=== PATIENT | female | born 1955 | race African-American/Black ===

== ENCOUNTER → 2016-11-19 | Outpatient (CLI) | payer MEDICARE ==
[2016-11-19 12:31] LABS: ANION GAP 12 (5-19); BLOOD UREA NITROGEN 30 mg/dL (7-20); CALCIUM 9.7 mg/dL (8.4-10.2); CARBON DIOXIDE 30 mmol/L (22-30); CHLORIDE 105 mmol/L (98-107); GLUCOSE 78 mg/dL (75-110); POTASSIUM 4.5 mmol/L (3.6-5.0); SODIUM 146.8 mmol/L (137-145)
== END ==
LOC: OD 10:21
PROVIDERS: ATTEND Student in an Organized Health Care Education/Training Program
DX: K59.00 Constipation, unspecified (principal); R19.7 Diarrhea, unspecified; R11.0 Nausea
CPT/HCPCS: 36415; 74000; 80048

== ENCOUNTER 2017-02-10 14:51 | Emergency (ER) | payer MEDICARE ==
[2017-02-10] MEDS ORDERED: OXYCODONE-ACETAMINOPHEN 5-325 MG TABLET PO ONE (16:57)
--- NOTE | 2017-02-10 16:57 | ER Document Report ---
ED Medical Screen (RME) - General Mode of Arrival: Ambulatory Information source: Patient TRAVEL OUTSIDE OF THE [place] IN LAST 30 DAYS: No - HPI Patient complains to provider of: LLQ abdominal pain Onset: Other - 4 days ago Associated Symptoms: Other - see notes above - Related Data Smoking: Non-smoker Frequency of alcohol use: None Drug Abuse: None <DEENA SHEPARD - Last Filed: 02/10/17 18:02> <ARY POE - Last Filed: 02/10/17 21:31> - General Chief Complaint: Lower Abdominal Pain Stated Complaint: DIFFICULTY BREATHING Time Seen by Provider: 02/10/17 16:47 Notes: 61-year-old female with history of GERD presents to the ED complaining of left lower quadrant abdominal pain that has been present for the past 4 days. Patient reports that pain is worse than it has ever been in the past. Patient has taken Advil for pain, but no relief. Patient additionally reports of vomiting, fever, and mucus in stool yesterday. Patient was given MiraLAX and omeprazole last week and reports that the pain stopped but came back 4 days ago. Patient was recently on antibiotics 1-2 weeks ago secondary to a dental infection. Patient is O2 dependent and has noticed that she needs more oxygen at times. (DEENA SHEPARD) - Related Data Allergies/Adverse Reactions: Sulfa (Sulfonamide Antibiotics) Allergy (Severe, Verified 02/10/17 14:57) iodine [Iodine] Allergy (Unknown, Verified 02/10/17 14:57) Shellfish * [Shellfish] Allergy (Verified 02/10/17 14:57) Past Medical History - General Information source: Patient - Social History Chew tobacco use (# tins/day): No Frequency of alcohol use: None Drug Abuse: None Family history: Reviewed & Not Pertinent - Past Medical History Cardiac Medical History: Reports: Hx Coronary Artery Disease, Hx Heart Attack, Hx Hypertension Pulmonary Medical History: Reports: Hx COPD, Hx Pneumonia Endocrine Medical History: Reports: Hx Hypothyroidism Malignancy Medical History: Reports: Hx Breast Cancer GI Medical History: Reports: Hx Gastroesophageal Reflux Disease Musculoskeltal Medical History: Reports Hx Arthritis Psychiatric Medical History: Reports: Hx Depression Traumatic Medical History: Reports: Hx Fractures - nose Past Surgical History: Reports: Hx Appendectomy, Hx Cholecystectomy, Hx Mastectomy, Hx Tubal Ligation - Immunizations Hx Diphtheria, Pertussis, Tetanus Vaccination: No <DEENA SHEPARD - Last Filed: 02/10/17 18:02> Review of Systems - Review of Systems Constitutional: See HPI, Fever EENT: No symptoms reported Cardiovascular: No symptoms reported Respiratory: No symptoms reported Gastrointestinal: See HPI, Abdominal pain - LLQ, Vomiting, Other - mucus in stool Genitourinary: No symptoms reported Female Genitourinary: No symptoms reported Musculoskeletal: No symptoms reported Skin: No symptoms reported Hematologic/Lymphatic: No symptoms reported Neurological/Psychological: No symptoms reported -: Yes All other systems reviewed and negative <DEENA SHEPARD - Last Filed: 02/10/17 18:02> Physical Exam - General General appearance: Alert In distress: None - Respiratory Respiratory status: No respiratory distress Breath sounds: Normal - Cardiovascular Rhythm: Regular Heart sounds: Normal auscultation Murmur: No Friction rub: No Gallop: None auscultated - Abdominal Inspection: Normal Distension: No distension Bowel sounds: Normal Tenderness: Tender - LLQ and suprapubic tenderness to palpation. No rebound or rigidity., Guarding - some. No: Rebound <DEENA SHEPARD - Last Filed: 02/10/17 18:02> Course - Laboratory Result Diagrams: 02/10/17 18:17 02/10/17 18:17 <ARY POE - Last Filed: 02/10/17 21:31> - Vital Signs Vital signs: Temp Pulse Resp BP Pulse Ox 98.4 F 104 H 16 141/78 H 100 02/10/17 14:58 02/10/17 16:51 02/10/17 20:00 02/10/17 20:00 02/10/17 20:00 - Laboratory Laboratory results interpreted by me: 02/10/17 02/10/17 18:17 18:17 RBC 3.13 L Hgb 9.4 L Hct 29.2 L Plt Count 130 L Seg Neutrophils % 80.5 H Lymphocytes % 9.3 L Carbon Dioxide 31 H BUN 21 H Est GFR ( Amer) 53 L Est GFR (Non-Af Amer) 44 L Total Protein 8.5 H Doctor's Discharge <DEENA SHEPARD - Last Filed: 02/10/17 18:02> <ARY POE - Last Filed: 06/14/17 21:31> - Discharge Clinical Impression: Abdominal pain, Diarrhea Condition: Good Disposition: HOME, SELF-CARE Additional Instructions: You have been seen in the Emergency Department (ED) for abdominal pain. Your evaluation did not identify a clear cause of your symptoms but was generally reassuring. You do have an abdominal aortic aneurysm which has grown since 2010. You need to follow with a vascular surgeon for monitoring of this to ensure that it does not grow to a size require surgery. Please inform your doctor of this finding as well. Your being started on 2 antibiotics to help treat a possible infection your colon. Please take until he complete all the antibiotics. For your pain: Take ibuprofen 600 mg and acetaminophen 1000 mg every 6 hours together as needed for pain. If this does not control your pain you may take 15 mg of oral morphine every 4 hours as needed. Please be very careful about using the oral morphine and only use this for severe pain. Please follow up with your doctor as soon as possible regarding today's emergent visit and the symptoms that are bothering you. Return to the ED if your abdominal pain worsens or fails to improve, you develop bloody vomiting, bloody diarrhea, you are unable to tolerate fluids due to vomiting, fever greater than 101, or other symptoms that concern you. Prescriptions: Morphine Sulfate [Morphine Ir 15 mg Tablet] 15 mg PO Q4HP PRN #12 tablet PRN Reason: Cephalexin Monohydrate [Keflex 500 mg Capsule] 500 mg PO QID #40 capsule Metronidazole [Flagyl 500 mg Tablet] 500 mg PO Q6H #40 tablet Ondansetron [Zofran Odt 4 mg Tablet] 1 - 2 tab PO Q4H PRN #15 tab.rapdis PRN Reason: For Nausea/Vomiting Referrals: BLANCA GRIDER DO [Primary Care Provider] - Follow up tomorrow Scribe Documentation - Scribe Written by Juan David:: Juan David Silverio, 02/10/2017 1119 acting as scribe for :: Jessica <DEENA SHEPARD - Last Filed: 02/10/17 18:02>
[2017-02-10 18:35] LABS: ABSOLUTE EOSINOPHILS # (AUTO) 0.1 10^3/uL (0.0-0.6); ABSOLUTE LYMPHOCYTES (AUTO) 0.8 10^3/uL (0.5-4.7); ABSOLUTE MONOCYTES (AUTO) 0.8 10^3/uL (0.1-1.4); ABSOLUTE NEUT (AUTO) 7.3 10^3/uL (1.7-8.2); BASOPHILS % (AUTO) 0.3 % (0-2); EOSINOPHILS % (AUTO) 0.7 % (0-6); HEMATOCRIT 29.2 % (36.0-47.0); HEMOGLOBIN 9.4 g/dL (12.0-15.5); LYMPHOCYTES % (AUTO) 9.3 % (13-45); MEAN CORPUSCULAR HEMOGLOBIN 30.1 pg (27.0-33.4); MEAN CORPUSCULAR HGB CONC 32.2 g/dL (32.0-36.0); MEAN CORPUSCULAR VOLUME 93 fl (80-97); MONOCYTES % (AUTO) 9.2 % (3-13); RED BLOOD COUNT 3.13 10^6/uL (3.72-5.28); RED CELL DISTRIBUTION WIDTH 13.2 % (11.5-14.0); SEGMENTED NEUTROPHILS % (AUTO) 80.5 % (42-78); WHITE BLOOD COUNT 9.1 10^3/uL (4.0-10.5)
[2017-02-10 18:55] LABS: ALANINE AMINOTRANSFERASE 27 U/L (9-52); ALKALINE PHOSPHATASE 62 U/L (38-126); ANION GAP 10 (5-19); ASPARTATE AMINO TRANSFERASE 35 U/L (14-36); BILIRUBIN,DIRECT 0.4 mg/dL (0.0-0.4); BILIRUBIN,TOTAL 0.8 mg/dL (0.2-1.3); BLOOD UREA NITROGEN 21 mg/dL (7-20); CARBON DIOXIDE 31 mmol/L (22-30); CHLORIDE 99 mmol/L (98-107); CREATININE RESULT 1.24 mg/dL (0.52-1.25); GLUCOSE 92 mg/dL (75-110); POTASSIUM 4.1 mmol/L (3.6-5.0); SODIUM 140.3 mmol/L (137-145); TOTAL PROTEIN 8.5 g/dL (6.3-8.2)
--- NOTE | 2017-02-10 18:58 | RADIOLOGY REPORT (SQ) ---
EXAM DESCRIPTION: CHEST SINGLE VIEW COMPLETED DATE/TIME: 02/10/2017 6:47 pm REASON FOR STUDY: sob, tachypnea COMPARISON: 03/10/2016 EXAM PARAMETERS: NUMBER OF VIEWS: One view. TECHNIQUE: Single frontal radiographic view of the chest acquired. RADIATION DOSE: NA LIMITATIONS: None. FINDINGS: LUNGS AND PLEURA: The lungs are hyperexpanded. The hemidiaphragms are flattened. Mild ch ronic interstitial changes are present in the lung bases. MEDIASTINUM AND HILAR STRUCTURES: No masses. Contour normal. HEART AND VASCULAR STRUCTURES: Heart normal in size. Normal vasculature. BONES: No acute findings. HARDWARE: Surgical clips are seen in the left axilla. OTHER: No other significant finding. IMPRESSION: Chronic lung changes with no acute cardiopulmonary disease. TECHNICAL DOCUMENTATION: JOB ID: [id number]
--- NOTE | 2017-02-10 19:02 | ER Document Report ---
ED General - General Chief Complaint: Lower Abdominal Pain Stated Complaint: DIFFICULTY BREATHING Time Seen by Provider: 02/10/17 16:47 Mode of Arrival: Ambulatory Notes: Patient is a 61-year-old female who presents with 3 days of intermittent, diffuse, cramping abdominal pain with associated mucousy diarrhea. Nothing improves or worsens her pain. She denies any history of similar symptoms in the past. She has not seen her primary care doctor regarding today's concerns. She has had several episodes of nonbilious, watery vomitus. Has been able to tolerate intermittent oral intake despite these episodes of vomiting. She denies any associated fever, chest pain, shortness of breath or syncope. She has a history of a cholecystectomy and appendectomy. TRAVEL OUTSIDE OF THE [place] IN LAST 30 DAYS: No - Related Data Allergies/Adverse Reactions: Sulfa (Sulfonamide Antibiotics) Allergy (Severe, Verified 02/10/17 14:57) iodine [Iodine] Allergy (Unknown, Verified 02/10/17 14:57) Shellfish * [Shellfish] Allergy (Verified 02/10/17 14:57) Past Medical History - General Information source: Patient - Social History Smoking Status: Never Smoker Chew tobacco use (# tins/day): No Frequency of alcohol use: None Drug Abuse: None Lives with: Family Family History: Reviewed & Not Pertinent Patient has suicidal ideation: No Patient has homicidal ideation: No - Past Medical History Cardiac Medical History: Reports: Hx Coronary Artery Disease, Hx Heart Attack, Hx Hypertension Denies: Hx Atrial Fibrillation, Hx Congestive Heart Failure, Hx Hypercholesterolemia, Hx Peripheral Vascular Disease, Hx Pulmonary Embolism, Hx Heart Murmur Pulmonary Medical History: Reports: Hx COPD, Hx Pneumonia Denies: Hx Asthma, Hx Bronchitis, Hx Respiratory Failure, Hx Sleep Apnea, Hx Tuberculosis Neurological Medical History: Denies: Hx Cerebrovascular Accident, Hx Seizures Endocrine Medical History: Reports: Hx Hypothyroidism. Denies: Hx Graves' Disease, Hx Hyperthyroidism Renal/ Medical History: Denies: Hx End Stage Renal Disease, Hx Kidney Stones, Hx Peritoneal Dialysis Malignancy Medical History: Reports: Hx Breast Cancer. Denies: Hx Leukemia, Hx Lung Cancer GI Medical History: Reports: Hx Gastroesophageal Reflux Disease. Denies: Hx Crohn's Disease, Hx Hiatal Hernia, Hx Irritable Bowel, Hx Liver Failure, Hx Ulcer Musculoskeltal Medical History: Reports Hx Arthritis, Denies Hx Fibromyalgia, Denies Hx Multiple Sclerosis, Denies Hx Muscular Dystrophy Skin Medical History: Denies Hx MRSA Psychiatric Medical History: Reports: Hx Depression Denies: Hx Bipolar Disorder, Hx Dementia, Hx Post Traumatic Stress Disorder, Hx Schizophrenia Traumatic Medical History: Reports: Hx Fractures - nose Infectious Medical History: Denies: Hx HIV Past Surgical History: Reports: Hx Appendectomy, Hx Cholecystectomy, Hx Mastectomy, Hx Tubal Ligation. Denies: Hx Bowel Surgery, Hx Section, Hx Colostomy, Hx Coronary Artery Bypass Graft, Hx Gastric Bypass Surgery, Hx Herniorrhaphy, Hx Hysterectomy, Hx Pacemaker, Hx Tonsillectomy - Immunizations Hx Diphtheria, Pertussis, Tetanus Vaccination: No Hx Pneumococcal Vaccination: 08/30/11 Review of Systems - Review of Systems Notes: Constitutional: Negative for fever. HENT: Negative for sore throat. Eyes: Negative for visual changes. Cardiovascular: Negative for chest pain. Respiratory: Negative for shortness of breath. Gastrointestinal: Positive for abdominal pain, vomiting and diarrhea Genitourinary: Negative for dysuria. Musculoskeletal: Negative for back pain. Skin: Negative for rash. Neurological: Negative for headaches, weakness or numbness. 10 point ROS negative except as marked above and in HPI. Physical Exam - Vital signs Vitals: Temp Pulse Resp BP Pulse Ox 98.4 F 93 14 135/70 H 99 02/10/17 14:58 02/10/17 14:58 02/10/17 14:58 02/10/17 14:58 02/10/17 14:58 Interpretation: Normal Notes: PHYSICAL EXAMINATION: GENERAL: Cachectic, frail but in no acute distress HEAD: Atraumatic, normocephalic. EYES: Pupils equal round and reactive to light, extraocular movements intact, sclera anicteric, conjunctiva are normal. ENT: nares patent, oropharynx clear without exudates. Moderately dry mucous membranes. NECK: Normal range of motion, supple without lymphadenopathy LUNGS: Breath sounds clear to auscultation bilaterally and equal. No wheezes rales or rhonchi. HEART: Regular rate and rhythm without murmurs ABDOMEN: Mild rigidity, diffuse tenderness with focal area of tenderness in the left lower quadrant, normoactive bowel sounds. No guarding, no rebound. No masses appreciated. EXTREMITIES: Normal range of motion, no pitting or edema. No cyanosis. NEUROLOGICAL: No focal neurological deficits. Moves all extremities spontaneously and on command. PSYCH: Normal mood, normal affect. SKIN: Warm, Dry, normal turgor, no rashes or lesions noted. Course - Re-evaluation Re-evalutation: 02/10/17 18:58 Patient presents with 4 days of progressively worsening diffuse abdominal pain, most focal in the left lower quadrant with associated increased diarrhea with mucus production and several episodes of nonbilious vomiting. She has however been able to tolerate oral intake over the last 4 days but notes that it increases her pain. She is overall frail, elderly in appearance but in no acute distress. She is cachectic and only 36 kg with a BMI of 13. On examination she has focal abdominal pain in the left lower quadrant but does have some mild rigidity throughout. No rebound tenderness. Patient did also mention some shortness of breath in triage which is now resolved. She denies any chest pain, pleuritic pain, hemoptysis. Chest x-ray will be obtained. At this time primary concern is for acute diverticulitis with associated possible bowel perforation versus possible C. difficile colitis. Will proceed with a noncontrasted CT scan of the abdomen pelvis as patient has anaphylaxis to contrast material. 02/10/17 20:10 Patient continues well in appearance, vital signs within normal limits, no distress. CT abdomen pelvis incidentally shows an enlarged abdominal aortic aneurysm increased in 2010 but not a surgical level and without perforation or leak. I do not believe this is at all related to patient's presentation of pain. Informed her of this finding and the need to follow-up with vascular surgery for continuous monitoring should cross a surgical threshold. Remainder the CT is unremarkable. Will empirically treat patient at this time for possible localized colitis not seen on CT scan. She is agreeable with this and has not had any additional diarrheal bowel movements to provide a C. difficile toxin assay. I have encouraged her to follow-up with her primary care doctor tomorrow. At this time will discharge with return precautions and follow-up recommendations. Verbal discharge instructions given a the bedside and opportunity for questions given. Medication warnings reviewed. Patient is in agreement with this plan and has verbalized understanding of return precautions and the need for primary care follow-up in the next 24-72 hours. - Vital Signs Vital signs: Temp Pulse Resp BP Pulse Ox 98.4 F 104 H 16 141/78 H 100 02/10/17 14:58 02/10/17 16:51 02/10/17 20:00 02/10/17 20:00 02/10/17 20:00 - Laboratory Result Diagrams: 02/10/17 18:17 02/10/17 18:17 Laboratory results interpreted by me: 02/10/17 02/10/17 18:17 18:17 RBC 3.13 L Hgb 9.4 L Hct 29.2 L Plt Count 130 L Seg Neutrophils % 80.5 H Lymphocytes % 9.3 L Carbon Dioxide 31 H BUN 21 H Est GFR ( Amer) 53 L Est GFR (Non-Af Amer) 44 L Total Protein 8.5 H - Diagnostic Test Radiology reviewed: Reports reviewed Discharge - Discharge Clinical Impression: Abdominal pain Qualifiers: Abdominal location: lower abdomen, unspecified Qualified Code(s): R10.30 - Lower abdominal pain, unspecified Diarrhea Qualifiers: Diarrhea type: infectious Qualified Code(s): A09 - Infectious gastroenteritis and colitis, unspecified Condition: Good Disposition: HOME, SELF-CARE Additional Instructions: You have been seen in the Emergency Department (ED) for abdominal pain. Your evaluation did not identify a clear cause of your symptoms but was generally reassuring. You do have an abdominal aortic aneurysm which has grown since 2010. You need to follow with a vascular surgeon for monitoring of this to ensure that it does not grow to a size require surgery. Please inform your doctor of this finding as well. Your being started on 2 antibiotics to help treat a possible infection your colon. Please take until he complete all the antibiotics. For your pain: Take ibuprofen 600 mg and acetaminophen 1000 mg every 6 hours together as needed for pain. If this does not control your pain you may take 15 mg of oral morphine every 4 hours as needed. Please be very careful about using the oral morphine and only use this for severe pain. Please follow up with your doctor as soon as possible regarding today's emergent visit and the symptoms that are bothering you. Return to the ED if your abdominal pain worsens or fails to improve, you develop bloody vomiting, bloody diarrhea, you are unable to tolerate fluids due to vomiting, fever greater than 101, or other symptoms that concern you. Prescriptions: Morphine Sulfate [Morphine Ir 15 mg Tablet] 15 mg PO Q4HP PRN #12 tablet PRN Reason: Cephalexin Monohydrate [Keflex 500 mg Capsule] 500 mg PO QID #40 capsule Metronidazole [Flagyl 500 mg Tablet] 500 mg PO Q6H #40 tablet Ondansetron [Zofran Odt 4 mg Tablet] 1 - 2 tab PO Q4H PRN #15 tab.rapdis PRN Reason: For Nausea/Vomiting Referrals: BLANCA GRIDER DO [Primary Care Provider] - Follow up tomorrow
--- NOTE | 2017-02-10 19:43 | RADIOLOGY REPORT (SQ) ---
EXAM DESCRIPTION: CT ABD/PELVIS ORAL ONLY COMPLETED DATE/TIME: 02/10/2017 7:25 pm REASON FOR STUDY: eval diverticulitis, possible perforation COMPARISON: 12/20/2010 TECHNIQUE: CT scan of the abdomen and pelvis performed without intravenous with oral contrast. Image s reviewed with lung, soft tissue, and bone windows. Reconstructed coronal and sagittal MPR images re viewed. All images stored on PACS. All CT scanners at this facility use dose modulation, iterative reconstruction, and/or weight based d osing when appropriate to reduce radiation dose to as low as reasonably achievable (ALARA). [facility]: Dose Right [facility]: CareDose [facility]: Dose Right [facility]: Teradose 4D [facility]: Health 123 RADIATION DOSE: 4.80mGy. LIMITATIONS: None. FINDINGS: LOWER CHEST: Extensive emphysema. No free air. NON-CONTRASTED LIVER, SPLEEN, ADRENALS: Evaluation limited by lack of IV contrast. No identified sign ificant masses. PANCREAS: No masses. No peripancreatic inflammatory changes. GALLBLADDER: Surgically absent. RIGHT KIDNEY AND URETER: No suspicious masses. Assessment limited by lack of IV contrast. No signif icant calcifications. No hydronephrosis or hydroureter. LEFT KIDNEY AND URETER: No suspicious masses. Assessment limited by lack of IV contrast. No signifi cant calcifications. No hydronephrosis or hydroureter. AORTA AND RETROPERITONEUM: Large bilobed abdominal aortic aneurysm. Maximum diameter of the inferior aneurysm is 4 x 3.5 cm. Significantly increased since 2011. BOWEL AND PERITONEAL CAVITY: No obvious masses or inflammatory changes. No free fluid. APPENDIX: Surgically absent. PELVIS, BLADDER, AND ABDOMINAL WALL:No abnormal masses. No free fluid. Bladder normal. BONES: No significant findings. OTHER: No other significant finding. IMPRESSION: Large bilobed abdominal aortic aneurysm. The inferior component maximum diameter 4 cm. Significantly increased since previous. No inflammatory changes. COPD. TECHNICAL DOCUMENTATION: JOB ID: [id number] Quality ID # [id number]: Final reports with documentation of one or more dose reduction techniques (e.g., Au tomated exposure control, adjustment of the mA and/or kV according to patient size, use of iterative reconstruction technique) 2010 [employer]- All Rights Reserved
[2017-02-10] MEDS ORDERED: MORPHINE SULFATE 10 MG/ML INJ IV PRN (19:58)
[2017-02-10] MEDS ORDERED: MORPHINE SULFATE IR 15 MG TABLET PO ONE (20:09)
[2017-02-10] MEDS ORDERED: ACETAMINOPHEN 325 MG TABLET PO ONE (20:09)
[2017-02-10 20:16] VITALS: BP 141/78
== END 2017-02-10 20:33 | disposition home or self-care (01) ==
LOC: ER 14:51
DX: A09 Infectious gastroenteritis and colitis, unspecified (principal); R10.30 Lower abdominal pain, unspecified; R06.02 Shortness of breath; R19.7 Diarrhea, unspecified
CPT/HCPCS: 99284; 96374; 36415; 85025; 80053; 71010; 74176; A9270 ×2; J2270

== ENCOUNTER 2017-02-21 18:26 | Inpatient (IN) | payer MEDICARE ==
--- NOTE | 2017-02-21 18:38 | ER Document Report ---
ED Medical Screen (RME) - General Chief Complaint: Breathing Difficulty Stated Complaint: DIFFICULTY BREATHING TRAVEL OUTSIDE OF THE [place] IN LAST 30 DAYS: No - HPI Notes: 02/21/17 18:36 Patient discharged from [facility] after COPD exacerbation states she was given a lot of fluid and concerned she is short of breath now because she is retaining fluid. - Related Data Allergies/Adverse Reactions: Sulfa (Sulfonamide Antibiotics) Allergy (Severe, Verified 02/10/17 14:57) iodine [Iodine] Allergy (Unknown, Verified 02/10/17 14:57) Shellfish * [Shellfish] Allergy (Verified 02/10/17 14:57) Past Medical History - Social History Family history: Reviewed & Not Pertinent - Past Medical History Cardiac Medical History: Reports: Hx Coronary Artery Disease, Hx Heart Attack, Hx Hypertension Denies: Hx Atrial Fibrillation, Hx Congestive Heart Failure, Hx Hypercholesterolemia, Hx Peripheral Vascular Disease, Hx Pulmonary Embolism, Hx Heart Murmur Pulmonary Medical History: Reports: Hx COPD, Hx Pneumonia Denies: Hx Asthma, Hx Bronchitis, Hx Respiratory Failure, Hx Sleep Apnea, Hx Tuberculosis Neurological Medical History: Denies: Hx Cerebrovascular Accident, Hx Seizures Endocrine Medical History: Reports: Hx Hypothyroidism. Denies: Hx Graves' Disease, Hx Hyperthyroidism Renal/ Medical History: Denies: Hx End Stage Renal Disease, Hx Kidney Stones, Hx Peritoneal Dialysis Malignancy Medical History: Reports: Hx Breast Cancer. Denies: Hx Leukemia, Hx Lung Cancer GI Medical History: Reports: Hx Gastroesophageal Reflux Disease. Denies: Hx Crohn's Disease, Hx Hiatal Hernia, Hx Irritable Bowel, Hx Liver Failure, Hx Ulcer Musculoskeltal Medical History: Reports Hx Arthritis, Denies Hx Fibromyalgia, Denies Hx Multiple Sclerosis, Denies Hx Muscular Dystrophy Skin Medical History: Denies Hx MRSA Psychiatric Medical History: Reports: Hx Depression Denies: Hx Bipolar Disorder, Hx Dementia, Hx Post Traumatic Stress Disorder, Hx Schizophrenia Traumatic Medical History: Reports: Hx Fractures - nose Infectious Medical History: Denies: Hx HIV Past Surgical History: Reports: Hx Appendectomy, Hx Cholecystectomy, Hx Mastectomy, Hx Tubal Ligation. Denies: Hx Bowel Surgery, Hx Section, Hx Colostomy, Hx Coronary Artery Bypass Graft, Hx Gastric Bypass Surgery, Hx Herniorrhaphy, Hx Hysterectomy, Hx Pacemaker, Hx Tonsillectomy - Immunizations Hx Diphtheria, Pertussis, Tetanus Vaccination: No Review of Systems - Review of Systems Cardiovascular: Dyspnea Physical Exam - Vital signs Vitals: Temp Pulse Resp BP Pulse Ox 98.2 F 100 24 H 141/85 H 95 02/21/17 18:28 02/21/17 18:28 02/21/17 18:28 02/21/17 18:28 02/21/17 18:28 - Cardiovascular Rhythm: Regular Heart sounds: Normal auscultation Murmur: No - Extremities General upper extremity: Normal inspection, Nontender, Normal color, Normal ROM , Normal temperature General lower extremity: Normal inspection, Nontender, Edema - +1, Normal color , Normal ROM, Normal temperature, Normal weight bearing. No: Joao's sign - Neurological Neuro grossly intact: Yes Cognition: Normal Orientation: AAOx4 [place] Coma Scale Eye Opening: Spontaneous [place] Coma Scale Verbal: Oriented [place] Coma Scale Motor: Obeys Commands [place] Coma Scale Total: 15 Speech: Normal Motor strength normal: LUE, RUE, LLE, RLE Sensory: Normal - Psychological Associated symptoms: Normal affect, Normal mood - Skin Skin Temperature: Warm Skin Moisture: Dry Skin Color: Normal Course - Re-evaluation Re-evalutation: 02/21/17 18:38 - Vital Signs Vital signs: Temp Pulse Resp BP Pulse Ox 98.2 F 100 24 H 141/85 H 95 02/21/17 18:28 02/21/17 18:28 02/21/17 18:28 02/21/17 18:28 02/21/17 18:28
[2017-02-21] MEDS ORDERED: IPRATROPIUM/ALBUTEROL 0.5-2.5 MG/3 ML AMPUL NEB ONE ×2 (19:01→20:04)
--- NOTE | 2017-02-21 19:22 | RADIOLOGY REPORT (SQ) ---
EXAM DESCRIPTION: CHEST PA/LAT COMPLETED DATE/TIME: 02/21/2017 7:02 pm REASON FOR STUDY: sob COMPARISON: 03/10/2016 EXAM PARAMETERS: NUMBER OF VIEWS: two views TECHNIQUE: Digital Frontal and Lateral radiographic views of the chest acquired. RADIATION DOSE: NA LIMITATIONS: none FINDINGS: LUNGS AND PLEURA: No opacities, masses or pneumothorax. No pleural effusion. MEDIASTINUM AND HILAR STRUCTURES: No masses or contour abnormalities. HEART AND VASCULAR STRUCTURES: Heart normal size. No evidence for failure. BONES: No acute findings. HARDWARE: Left axillary clips. OTHER: No other significant finding. IMPRESSION: NO SIGNIFICANT RADIOGRAPHIC FINDING IN THE CHEST. TECHNICAL DOCUMENTATION: JOB ID: [id number] [employer]- All Rights Reserved
--- NOTE | 2017-02-21 19:40 | ER Document Report ---
ED General - General Chief Complaint: Breathing Difficulty Stated Complaint: DIFFICULTY BREATHING Time Seen by Provider: 02/21/17 18:39 Mode of Arrival: Ambulatory Information source: Relative Notes: 61-year-old female with a history of COPD (2 L nasal cannula), lupus, known AAA (recent evaluation at [facility]), chronic kidney disease. Patient presents to the emergency room with productive cough of grayish sputum, shortness of breath and difficulty breathing. Note: Patient was recently evaluated for AAA at [facility]. During that evaluation, vascular surgery thought she was not a candidate for AAA correction. She was admitted there because of acute renal failure was diagnosed with C. difficile colitis and started on antibiotics. She was stabilized and discharged in the family states that her renal function had returned to normal. They state that she had started to have a cough with shortness of breath towards the end of her hospitalization which progressively got worse over the last few days. TRAVEL OUTSIDE OF THE [place] IN LAST 30 DAYS: No - HPI Onset: Last week Onset/Duration: Gradual Quality of pain: No pain Severity: None Pain Level: Denies Associated symptoms: Shortness of breath. denies: Chest pain, Fever Exacerbated by: Denies Relieved by: Denies Similar symptoms previously: Yes Recently seen / treated by doctor: Yes - Related Data Allergies/Adverse Reactions: Sulfa (Sulfonamide Antibiotics) Allergy (Severe, Verified 02/21/17 20:17) iodine [Iodine] Allergy (Unknown, Verified 02/21/17 20:17) Shellfish * [Shellfish] Allergy (Verified 02/21/17 20:17) Home Medications: Current Home Medications Albuterol Sulfate [Ventolin Hfa] 2 puff IH Q6H PRN 02/21/17 [History] Amlodipine Besylate [Amlodipine Besylate] 5 mg PO DAILY 02/21/17 [History] Aspirin [Aspirin 81 mg Chewable Tablet] 81 mg PO DAILY 02/21/17 [History] Budesonide/Formoterol Fumarate [Symbicort 160-4.5 Mcg Inhaler] 2 puff IH BID [History] Cephalexin Monohydrate [Cephalexin] 500 mg PO QID 02/21/17 [History] Cholecalciferol (Vitamin D3) [Vitamin D3] 1,000 units PO DAILY 02/21/17 [History ] Epoetin Darren [Procrit Inj 40,000 Unit/1 ml Vial (Renal)] 40,000 units SQ Q2DAYS 02/21/17 [History] Guaifenesin/Dextromethorphan [Mucinex Dm ER 600-30 mg Tablet] 1 tab PO Q12H [History] Ipratropium/Albuterol Sulfate [Duoneb 3 ml Ampul] 3 ml IH Q4H PRN 02/21/17 [ History] Isosorbide Mononitrate [Imdur 30 mg Tablet.er] 30 mg PO DAILY 02/21/17 [History] Metoprolol Succinate [Toprol Xl] 50 mg PO DAILY 02/21/17 [History] Metronidazole [Metronidazole] 500 mg PO Q8H 02/21/17 [History] Omeprazole 40 mg PO DAILY 02/21/17 [History] Ondansetron HCl [Zofran 4 mg Tablet] 4 mg PO Q8H PRN 02/21/17 [History] Pravastatin Sodium [Pravastatin Sodium] 10 mg PO QHS 02/21/17 [History] Prednisone [Prednisone] 40 mg PO DAILY 02/21/17 [History] Sennosides [Senna Laxative] 1 - 2 tab PO BID PRN 02/21/17 [History] Tiotropium [place] [Spiriva Handihaler 5 Cap/Kit (18 Mcg/Cap)] 18 mcg IH DAILY 02/21/17 [History] Past Medical History - General Information source: Patient - Social History Smoking Status: Never Smoker Cigarette use (# per day): No Chew tobacco use (# tins/day): No Frequency of alcohol use: None Drug Abuse: None Lives with: Family Family History: Reviewed & Not Pertinent Patient has suicidal ideation: No Patient has homicidal ideation: No - Past Medical History Cardiac Medical History: Reports: Hx Coronary Artery Disease, Hx Heart Attack, Hx Hypertension Denies: Hx Atrial Fibrillation, Hx Congestive Heart Failure, Hx Hypercholesterolemia, Hx Peripheral Vascular Disease, Hx Pulmonary Embolism, Hx Heart Murmur Pulmonary Medical History: Reports: Hx COPD, Hx Pneumonia Denies: Hx Asthma, Hx Bronchitis, Hx Respiratory Failure, Hx Sleep Apnea, Hx Tuberculosis Neurological Medical History: Denies: Hx Cerebrovascular Accident, Hx Seizures Endocrine Medical History: Reports: Hx Hypothyroidism. Denies: Hx Graves' Disease, Hx Hyperthyroidism Renal/ Medical History: Denies: Hx End Stage Renal Disease, Hx Kidney Stones, Hx Peritoneal Dialysis Malignancy Medical History: Reports: Hx Breast Cancer. Denies: Hx Leukemia, Hx Lung Cancer GI Medical History: Reports: Hx Gastroesophageal Reflux Disease. Denies: Hx Crohn's Disease, Hx Hiatal Hernia, Hx Irritable Bowel, Hx Liver Failure, Hx Ulcer Musculoskeltal Medical History: Reports Hx Arthritis, Denies Hx Fibromyalgia, Denies Hx Multiple Sclerosis, Denies Hx Muscular Dystrophy Skin Medical History: Denies Hx MRSA Psychiatric Medical History: Reports: Hx Depression Denies: Hx Bipolar Disorder, Hx Dementia, Hx Post Traumatic Stress Disorder, Hx Schizophrenia Traumatic Medical History: Reports: Hx Fractures - nose Infectious Medical History: Denies: Hx HIV Past Surgical History: Reports: Hx Appendectomy, Hx Cholecystectomy, Hx Mastectomy, Hx Tubal Ligation. Denies: Hx Bowel Surgery, Hx Section, Hx Colostomy, Hx Coronary Artery Bypass Graft, Hx Gastric Bypass Surgery, Hx Herniorrhaphy, Hx Hysterectomy, Hx Pacemaker, Hx Tonsillectomy - Immunizations Hx Diphtheria, Pertussis, Tetanus Vaccination: No Hx Pneumococcal Vaccination: 08/30/11 Review of Systems - Review of Systems Constitutional: denies: Chills, Fever EENT: No symptoms reported Cardiovascular: See HPI Respiratory: See HPI Gastrointestinal: No symptoms reported Genitourinary: No symptoms reported Female Genitourinary: No symptoms reported Musculoskeletal: No symptoms reported Skin: No symptoms reported Hematologic/Lymphatic: No symptoms reported Neurological/Psychological: No symptoms reported Physical Exam - Vital signs Vitals: Temp Pulse Resp BP Pulse Ox 98.2 F 100 24 H 141/85 H 95 02/21/17 18:28 02/21/17 18:28 02/21/17 18:28 02/21/17 18:28 02/21/17 18:28 Notes: Physical exam: GENERAL: 61-year-old female, alert and oriented 3, looks frail and chronically ill HEAD: Atraumatic, normocephalic. EYES: Pupils equal round and reactive to light, extraocular movements intact, sclera anicteric, conjunctiva are normal. ENT: Dry mucous membranes. NECK: Normal range of motion, supple without lymphadenopathy or JVD. LUNGS: Bilateral wheezing HEART: Regular rate and rhythm without murmurs, rubs or gallops. ABDOMEN: Soft, normoactive bowel sounds. No tenderness to palpation. No guarding, no rebound. No masses appreciated. EXTREMITIES: Normal range of motion, no pitting or edema. No clubbing or cyanosis. NEUROLOGICAL: Cranial nerves II through XII grossly intact. Normal speech, normal gait. PSYCH: Normal mood, normal affect. SKIN: Warm, Dry, normal turgor, no rashes or lesions noted. Course - Vital Signs Vital signs: Temp Pulse Resp BP Pulse Ox 98.2 F 100 20 139/94 H 100 02/21/17 18:28 02/21/17 18:28 02/21/17 21:01 02/21/17 21:00 02/21/17 21:01 - Laboratory Result Diagrams: 02/21/17 19:50 02/21/17 19:50 Laboratory results interpreted by me: 02/21/17 02/21/17 19:50 19:50 RBC 3.18 L Hgb 9.4 L Hct 28.8 L Seg Neuts % (Manual) 96 H Band Neutrophils % 1 L Lymphocytes % (Manual) 1 L Monocytes % (Manual) 2 L Abs Neuts (Manual) 10.2 H Abs Lymphs (Manual) 0.1 L Carbon Dioxide 20 L BUN 73 H Creatinine 2.71 H Est GFR ( Amer) 22 L Est GFR (Non-Af Amer) 18 L Glucose 146 H Direct Bilirubin 0.5 H AST 44 H Albumin 3.1 L - Diagnostic Test Radiology reviewed: Image reviewed, Reports reviewed - This infiltrates - EKG Interpretation by Me Rate: Normal Rhythm: NSR - Sinus rhythm with a ventricular rate of 98, nonspecific ST changes. Critical Care Note - Critical Care Note Total time excluding time spent on procedures (mins): 55 Discharge - Discharge Clinical Impression: acute COPD exacerbation, acute renal failure, C diff Condition: Stable Disposition: ADMITTED INPATIENT Admitting Provider: Hospitalist - dr del rio Unit Admitted: Telemetry Referrals: BLANCA GRIDER DO [Primary Care Provider] - Follow up as needed
[2017-02-21 19:57] LABS: HEMATOCRIT 28.8 % (36.0-47.0); HEMOGLOBIN 9.4 g/dL (12.0-15.5); HGB HCT DIFFERENCE -0.6; MEAN CORPUSCULAR HEMOGLOBIN 29.5 pg (27.0-33.4); MEAN CORPUSCULAR HGB CONC 32.7 g/dL (32.0-36.0); MEAN CORPUSCULAR VOLUME 90 fl (80-97); RED BLOOD COUNT 3.18 10^6/uL (3.72-5.28); RED CELL DISTRIBUTION WIDTH 13.8 % (11.5-14.0); WHITE BLOOD COUNT 10.5 10^3/uL (4.0-10.5)
[2017-02-21] MEDS ORDERED: METHYLPREDNISOLONE INJ 125 MG/2 ML SDV IV ONE (20:04)
[2017-02-21] MEDS ORDERED: LEVOFLOXACIN 500 MG/D5W RTU 100 ML IV ONE (20:04)
[2017-02-21 20:09] LABS: ALANINE AMINOTRANSFERASE 51 U/L (9-52); ALBUMIN 3.1 g/dL (3.5-5.0); ALKALINE PHOSPHATASE 50 U/L (38-126); ANION GAP 13 (5-19); ASPARTATE AMINO TRANSFERASE 44 U/L (14-36); BILIRUBIN,DIRECT 0.5 mg/dL (0.0-0.4); BILIRUBIN,TOTAL 0.5 mg/dL (0.2-1.3); BLOOD UREA NITROGEN 73 mg/dL (7-20); CALCIUM 8.9 mg/dL (8.4-10.2); CARBON DIOXIDE 20 mmol/L (22-30); CHLORIDE 107 mmol/L (98-107); CREATININE RESULT 2.71 mg/dL (0.52-1.25); GLUCOSE 146 mg/dL (75-110); POTASSIUM 4.8 mmol/L (3.6-5.0); SODIUM 139.5 mmol/L (137-145); TOTAL PROTEIN 6.7 g/dL (6.3-8.2)
[2017-02-21 20:17] LABS: BAND NEUTROPHILS % (MANUAL) 1 % (3-5); BASOPHILS % (MANUAL) 0 % (0-2); EOSINOPHILS % (MANUAL) 0 % (0-6); LYMPHOCYTES % (MANUAL) 1 % (13-45); TOTAL CELLS COUNTED 100
[2017-02-21 20:21] LABS: TOXIC GRANULATION 1+; TOXIC VACUOLATION PRESENT
[2017-02-21 20:22] LABS: BURR CELLS SLIGHT; OVALOCYTES 1+; PLATELET CLUMPS PRESENT; POIKILOCYTOSIS 1+; TARGET CELLS SLIGHT
[2017-02-21] MEDS ORDERED: NORMAL SALINE 1000 ML 1,000 ML IV PRN (20:26)
[2017-02-21 22:30] LABS: MAGNESIUM 2.1 mg/dL (1.6-2.3)
--- NOTE | 2017-02-21 22:42 | EKG REPORT ---
SEVERITY:- ABNORMAL ECG - SINUS TACHYCARDIA MULTIPLE ATRIAL PREMATURE COMPLEXES ABERRANT COMPLEX VS VPC ABNORMAL T, CONSIDER ISCHEMIA, DIFFUSE LEADS : Confirmed by: Angel Bauer 21-Feb-2017 22:41:24
[2017-02-21] MEDS: NORMAL SALINE 1000 ML 1,000 ML IV SCH (23:00)
[2017-02-22 00:38] LABS: FOLATE > 20.00 ng/mL (>2.76)
[2017-02-22] MEDS: IPRATROPIUM/ALBUTEROL 0.5-2.5 MG/3 ML AMPUL NEB SCH ×4 (01:51→19:46)
[2017-02-22] MEDS: NORMAL SALINE 1000 ML 1,000 ML IV SCH ×2 (01:53→06:03)
[2017-02-22 05:25] LABS: HEMOGLOBIN 8.8 g/dL (12.0-15.5); HGB HCT DIFFERENCE 0.4; MEAN CORPUSCULAR HEMOGLOBIN 31.2 pg (27.0-33.4); MEAN CORPUSCULAR HGB CONC 33.9 g/dL (32.0-36.0); MEAN CORPUSCULAR VOLUME 92 fl (80-97); RED BLOOD COUNT 2.82 10^6/uL (3.72-5.28); RED CELL DISTRIBUTION WIDTH 13.9 % (11.5-14.0); WHITE BLOOD COUNT 8.7 10^3/uL (4.0-10.5)
[2017-02-22 05:35] LABS: ANION GAP 11 (5-19); BLOOD UREA NITROGEN 69 mg/dL (7-20); CALCIUM 8.4 mg/dL (8.4-10.2); CARBON DIOXIDE 20 mmol/L (22-30); CHLORIDE 111 mmol/L (98-107); CREATININE RESULT 2.39 mg/dL (0.52-1.25); GLUCOSE 130 mg/dL (75-110); POTASSIUM 4.5 mmol/L (3.6-5.0)
[2017-02-22] MEDS: HEPARIN SOD (PORCINE) 5,000 UNIT/ML 1 ML SYRINGE SUBCUT SCH ×3 (05:37→21:40)
--- NOTE | 2017-02-22 05:41 | PDOC H&P ---
History of Present Illness Admission Date/PCP: BLANCA GRIDER DO History of Present Illness: LAURYN PETTY is a 61 year old female Past Medical History Cardiac Medical History: Reports: Coronary Artery Disease, Myocardial Infarction , Hypertension Denies: Atrial Fibrillation, Congestive Heart Failure, Hyperlipidema, Peripheral Vascular Disease, Pulmonary Embolism, Heart Murmur Pulmonary Medical History: Reports: Chronic Obstructive Pulmonary Disease (COPD) , Pneumonia Denies: Asthma, Bronchitis, Respiratory Failure, Sleep Apnea, Tuberculosis Neurological Medical History: Denies: Seizures Endocrine Medical History: Reports: Hypothyroidism Denies: Hyperthyroidism Renal/ Medical History: Denies: End Stage Renal Disease Malignancy Medical History: Reports: Breast Cancer Denies: Leukemia, Lung Cancer GI Medical History: Reports: Gastroesophageal Reflux Disease Denies: Crohn's Disease, Hiatal Hernia Musculoskeltal Medical History: Reports: Arthritis Denies: Fibromyalgia Psychiatric Medical History: Reports: Depression Denies: Bipolar Disorder, Dementia, Post Traumatic Stress Disorder Hematology: Reports: Anemia Denies: Hemophilia, Sickle Cell Disease Infectious Medical History: Denies: HIV Past Surgical History Past Surgical History: Reports: Appendectomy, Cardiac Catheterization - stent x 2, Cholecystectomy, Mastectomy, Tubal Ligation Denies: Amputation, Section, Colostomy, Coronary Artery Bypass Graft , Gastric Bypass Surgery, Herniorrhaphy, Hysterectomy, Pacemaker, Tonsillectomy Social History Lives with: Family Smoking Status: Never Smoker Frequency of Alcohol Use: None Hx Recreational Drug Use: No Hx Prescription Drug Abuse: No - Advance Directive Resuscitation Status: Full Code Family History Family History: COPD, Hyperlipidemia Parental Family History Reviewed: Yes Children Family History Reviewed: Yes Sibling(s) Family History Reviewed.: Yes Medication/Allergy Home Medications: Albuterol Sulfate [Ventolin Hfa] 2 puff IH Q6H PRN 02/21/17 Amlodipine Besylate [Amlodipine Besylate] 5 mg PO DAILY 02/21/17 Aspirin [Aspirin 81 mg Chewable Tablet] 81 mg PO DAILY 02/21/17 Budesonide/Formoterol Fumarate [Symbicort 160-4.5 Mcg Inhaler] 2 puff IH BID Cephalexin Monohydrate [Cephalexin] 500 mg PO QID 02/21/17 Cholecalciferol (Vitamin D3) [Vitamin D3] 1,000 units PO DAILY 02/21/17 Epoetin Darren [Procrit Inj 40,000 Unit/1 ml Vial (Renal)] 40,000 units SQ Q2DAYS 02/21/17 Guaifenesin/Dextromethorphan [Mucinex Dm ER 600-30 mg Tablet] 1 tab PO Q12H Ipratropium/Albuterol Sulfate [Duoneb 3 ml Ampul] 3 ml IH Q4H PRN 02/21/17 Isosorbide Mononitrate [Imdur 30 mg Tablet.er] 30 mg PO DAILY 02/21/17 Metoprolol Succinate [Toprol Xl] 50 mg PO DAILY 02/21/17 Metronidazole [Metronidazole] 500 mg PO Q8H 02/21/17 Omeprazole 40 mg PO DAILY 02/21/17 Ondansetron HCl [Zofran 4 mg Tablet] 4 mg PO Q8H PRN 02/21/17 Pravastatin Sodium [Pravastatin Sodium] 10 mg PO QHS 02/21/17 Prednisone [Prednisone] 40 mg PO DAILY 02/21/17 Sennosides [Senna Laxative] 1 - 2 tab PO BID PRN 02/21/17 Tiotropium [place] [Spiriva Handihaler 5 Cap/Kit (18 Mcg/Cap)] 18 mcg IH DAILY 02/21/17 Allergies/Adverse Reactions: Sulfa (Sulfonamide Antibiotics) Allergy (Severe, Verified 02/21/17 20:17) iodine [Iodine] Allergy (Unknown, Verified 02/21/17 20:17) Shellfish * [Shellfish] Allergy (Verified 02/21/17 20:17) Review of Systems Constitutional: PRESENT: fatigue, weakness. ABSENT: anorexia, fever(s), headache(s), night sweats Eyes: ABSENT: visual disturbances Ears: ABSENT: hearing changes Cardiovascular: ABSENT: chest pain, dyspnea on exertion, edema, orthropnea, palpitations Respiratory: PRESENT: cough. ABSENT: sputum Gastrointestinal: ABSENT: abdominal pain, constipation, diarrhea, hematemesis, hematochezia, nausea, vomiting Genitourinary: ABSENT: dysuria, hematuria Musculoskeletal: PRESENT: muscle weakness Integumentary: ABSENT: rash, wounds Neurological: ABSENT: abnormal gait, abnormal speech, confusion, dizziness, focal weakness, syncope Psychiatric: ABSENT: anxiety, depression, homidical ideation, suicidal ideation Endocrine: ABSENT: cold intolerance, heat intolerance, polydipsia, polyuria Hematologic/Lymphatic: ABSENT: easy bleeding, easy bruising Physical Exam Vital Signs: Temp Pulse Resp BP Pulse Ox 98.2 F 100 20 139/94 H 100 02/21/17 18:28 02/21/17 18:28 02/21/17 21:01 02/21/17 21:00 02/21/17 21:01 Intake & Output 02/20/17 02/21/17 02/22/17 11:59 11:59 11:59 Weight 46 kg General appearance: PRESENT: no acute distress, cooperative, thin Head exam: PRESENT: atraumatic, normocephalic Eye exam: PRESENT: conjunctiva pink, EOMI, PERRLA, other - Left eye blind and opaque. ABSENT: scleral icterus Ear exam: PRESENT: normal external ear exam Mouth exam: PRESENT: dry mucosa, tongue midline Neck exam: ABSENT: carotid bruit, JVD, lymphadenopathy, thyromegaly Respiratory exam: PRESENT: crackles, decreased breath sounds, prolonged expiratory phas, symmetrical, unlabored. ABSENT: accessory muscle use, chest wall tenderness Cardiovascular exam: PRESENT: RRR. ABSENT: diastolic murmur, rubs, systolic murmur Pulses: PRESENT: normal dorsalis pedis pul Vascular exam: PRESENT: normal capillary refill GI/Abdominal exam: PRESENT: normal bowel sounds, soft. ABSENT: distended, guarding, mass, organolmegaly, rebound, tenderness Rectal exam: PRESENT: deferred Extremities exam: PRESENT: pedal edema Musculoskeletal exam: PRESENT: other - Global muscle atrophy Neurological exam: PRESENT: alert, awake, oriented to person, oriented to place , oriented to time, oriented to situation, CN II-XII grossly intact. ABSENT: motor sensory deficit Skin exam: PRESENT: dry, intact, warm. ABSENT: cyanosis, rash Results Laboratory Results: 02/21/17 19:50 02/21/17 19:50 02/21/17 02/21/17 02/21/17 19:50 19:50 19:54 WBC 10.5 RBC 3.18 L Hgb 9.4 L Hct 28.8 L MCV 90 MCH 29.5 MCHC 32.7 RDW 13.8 Plt Count 187 Seg Neutrophils % Not Reportable Lymphocytes % Not Reportable Monocytes % Not Reportable Eosinophils % Not Reportable Basophils % Not Reportable Absolute Neutrophils Not Reportable Absolute Lymphocytes Not Reportable Absolute Monocytes Not Reportable Absolute Eosinophils Not Reportable Absolute Basophils Not Reportable Retic Count (auto) 0.86 Absolute Retic 0.028 Sodium 139.5 Potassium 4.8 Chloride 107 Carbon Dioxide 20 L Anion Gap 13 BUN 73 H Creatinine 2.71 H Est GFR ( Amer) 22 L Est GFR (Non-Af Amer) 18 L Glucose 146 H Calcium 8.9 Total Bilirubin 0.5 AST 44 H ALT 51 Alkaline Phosphatase 50 Total Protein 6.7 Albumin 3.1 L Impressions: Chest X-Ray 02/21/17 18:38 IMPRESSION: NO SIGNIFICANT RADIOGRAPHIC FINDING IN THE CHEST. Assessment & Plan - Diagnosis (1) Anemia Is this a current diagnosis for this admission?: YesPlan: Unclear cause anemia workup initiated possibly secondary to chronic kidney disease. Reevaluate CBC (2) Acute renal failure Is this a current diagnosis for this admission?: YesPlan: Unclear baseline, concern for recent exposure to IV contrast and workup of AAA. UA pending, avoid nephrotoxic meds and doses IV fluid challenge reevaluate chemistry and nephrology consult (3) Bronchitis Is this a current diagnosis for this admission?: YesPlan: Albuterol and Atrovent, empiric antibiotics, flutter valve, consider steroids - Time Time Spent: 50 to 70 Minutes - Inpatient Certification Medical Necessity: Need Close Monitoring Due to Risk of Patient Decompensation
[2017-02-22 05:55] LABS: BASOPHILS % (MANUAL) 0 % (0-2); EOSINOPHILS % (MANUAL) 0 % (0-6); LYMPHOCYTES % (MANUAL) 2 % (13-45); TOTAL CELLS COUNTED 100; TOXIC GRANULATION SLIGHT; TOXIC VACUOLATION PRESENT
[2017-02-22 05:56] LABS: OVALOCYTES SLIGHT; TEAR DROP CELLS SLIGHT
--- NOTE | 2017-02-22 10:10 | PDOC CONSULTATION ---
Consultation Consult Date: 02/22/17 Consult reason:: Acute kidney injury. Underlying CKD stage 3/4 History of Present Illness Admission Date/PCP: 02/21/17 22:03 BLANCA GRIDER DO History of Present Illness: LAURYN PETTY is a 61 year old female with a history of end-stage COPD, hypertension, history of CVA of the breast, CKD stage 3/4 with a base creatinine of 1.5 was admitted with history of progressive weakness and shortness of breath.She is not very sure of her history. She is currently in bed on oxygen and looks extremely weak and almost cachectic.She says she was being worked up for initial nausea vomiting diarrhea this was followed by chest infection and history of being on antibiotics. Apparently she was hospitalized in [place] that the week before and she was discharged on Wednesday. Then she gives history of being worked up for possible abdominal aortic aneurysm. Unsure of whether she had angiogram and use of contrast [place].Currently she says her nausea vomiting is better. She denies any history of fever chills. She has left-sided back pains. No history of dysuria hematuria.Diarrhea has resolved and she has been constipated for the last 2 days. She does not know if she was positive for C. difficile and what antibiotics was given. Past Medical History Cardiac Medical History: Reports: Coronary Artery Disease, Hypertension-primary , Myocardial Infarction Denies: Atrial Fibrillation, Heart Murmur, Hyperlipidemia, Peripheral Vascular Disease, Pulmonary Embolism Pulmonary Medical History: Reports: Chronic Obstructive Pulmonary Disease (COPD) , Pneumonia Denies: Asthma, Bronchitis, Respiratory Failure, Sleep Apnea, Tuberculosis Neurological Medical History: Denies: Seizures Endocrine Medical History: Reports: Hypothyroidism Denies: Hyperthyroidism Renal/ Medical History: Reports: Chronic Kidney Disease Stage III Denies: Benign Prostatic Hyperplasia, End Stage Renal Disease Malignancy Medical History: Reports: Breast Cancer Denies: Leukemia, Lung Cancer GI Medical History: Reports: Gastroesophageal Reflux Disease Denies: Crohn's Disease, Hiatal Hernia Musculoskeltal Medical History: Reports: Arthritis, Systemic Lupus Erythematosus Denies: Fibromyalgia, Rheumatoid Arthritis Psychiatric Medical History: Reports: Depression Denies: Bipolar Disorder, Dementia, Post Traumatic Stress Disorder Infectious Medical History: Denies: HIV Hematology Medical History: Reports Anemia Past Surgical History Past Surgical History: Reports: Appendectomy, Cardiac Catheterization - stent x 2, Cholecystectomy, Mastectomy, Tubal Ligation Denies: Section, Colostomy, Coronary Artery Bypass Graft, Gastric Bypass Surgery, Herniorrhaphy, Hysterectomy, Pacemaker, Tonsillectomy Social History Lives with: Family Smoking Status: Never Smoker Frequency of Alcohol Use: None Hx Recreational Drug Use: No Hx Prescription Drug Abuse: No - Advance Directive Resuscitation Status: Full Code Family History Parental Family History Reviewed: Yes - Negative for ESRD. Children Family History Reviewed: No Sibling(s) Family History Reviewed.: No Medication/Allergy Home Medications: Albuterol Sulfate [Ventolin Hfa] 2 puff IH Q6H PRN 02/21/17 Amlodipine Besylate [Amlodipine Besylate] 5 mg PO DAILY 02/21/17 Aspirin [Aspirin 81 mg Chewable Tablet] 81 mg PO DAILY 02/21/17 Budesonide/Formoterol Fumarate [Symbicort 160-4.5 Mcg Inhaler] 2 puff IH BID Cephalexin Monohydrate [Cephalexin] 500 mg PO QID 02/21/17 Cholecalciferol (Vitamin D3) [Vitamin D3] 1,000 units PO DAILY 02/21/17 Epoetin Darren [Procrit Inj 40,000 Unit/1 ml Vial (Renal)] 40,000 units SQ Q2DAYS 02/21/17 Guaifenesin/Dextromethorphan [Mucinex Dm ER 600-30 mg Tablet] 1 tab PO Q12H Ipratropium/Albuterol Sulfate [Duoneb 3 ml Ampul] 3 ml IH Q4H PRN 02/21/17 Isosorbide Mononitrate [Imdur 30 mg Tablet.er] 30 mg PO DAILY 02/21/17 Metoprolol Succinate [Toprol Xl] 50 mg PO DAILY 02/21/17 Metronidazole [Metronidazole] 500 mg PO Q8H 02/21/17 Omeprazole 40 mg PO DAILY 02/21/17 Ondansetron HCl [Zofran 4 mg Tablet] 4 mg PO Q8H PRN 02/21/17 Pravastatin Sodium [Pravastatin Sodium] 10 mg PO QHS 02/21/17 Prednisone [Prednisone] 40 mg PO DAILY 02/21/17 Sennosides [Senna Laxative] 1 - 2 tab PO BID PRN 02/21/17 Tiotropium [place] [Spiriva Handihaler 5 Cap/Kit (18 Mcg/Cap)] 18 mcg IH DAILY 02/21/17 Allergies/Adverse Reactions: Sulfa (Sulfonamide Antibiotics) Allergy (Severe, Verified 02/21/17 20:17) iodine [Iodine] Allergy (Unknown, Verified 02/21/17 20:17) Shellfish * [Shellfish] Allergy (Verified 02/21/17 20:17) Review of Systems Constitutional: PRESENT: fatigue, weakness. ABSENT: fever(s), headache(s), night sweats Nose, Mouth, and Throat: ABSENT: mouth pain, sore throat Cardiovascular: PRESENT: dyspnea on exertion, edema. ABSENT: chest pain, orthropnea, palpitations Gastrointestinal: PRESENT: diarrhea, nausea, vomiting. ABSENT: abdominal pain, coffee ground emesis, dysphagia, heartburn, hematemesis, hematochezia, melena Genitourinary: ABSENT: dysuria, hematuria Integumentary: ABSENT: lesions, pruritus, rash Neurological: PRESENT: confusion. ABSENT: abnormal speech, focal weakness Hematologic/Lymphatic: ABSENT: easy bruising, lymphadenopathy Physical Exam Vital Signs: Temp Pulse Resp BP Pulse Ox 97.6 F 102 H 20 136/80 H 100 02/22/17 07:46 02/22/17 07:46 02/22/17 07:46 02/22/17 07:46 02/22/17 07:46 Intake & Output 02/21/17 02/22/17 02/23/17 06:59 06:59 06:59 Intake Total 1300 Balance 1300 Weight 52.3 kg General appearance: PRESENT: mild distress, thin Eye exam: PRESENT: conjunctiva pink, EOMI, PERRLA. ABSENT: nystagmus, scleral icterus Ear exam: PRESENT: normal external ear exam Mouth exam: PRESENT: moist. ABSENT: neck supple Neck exam: ABSENT: lymphadenopathy, meningismus, tenderness, thyromegaly, tracheal deviation Respiratory exam: PRESENT: clear to auscultation amaury, crackles. ABSENT: rhonchi Cardiovascular exam: PRESENT: +S1, +S2 GI/Abdominal exam: PRESENT: normal bowel sounds, soft. ABSENT: distended, firm , organomegaly, tenderness Extremities exam: PRESENT: +1 edema Neurological exam: PRESENT: awake, oriented to person, oriented to place, oriented to time, CN II-XII grossly intact. ABSENT: motor sensory deficit Psychiatric exam: PRESENT: anxious Skin exam: ABSENT: cyanosis, dry, erythema, mottled, rash Results Laboratory Results: 02/22/17 05:00 02/22/17 05:00 02/21/17 02/22/17 02/22/17 23:05 05:00 05:00 WBC 8.7 RBC 2.82 L Hgb 8.8 L Hct 26.0 L MCV 92 MCH 31.2 MCHC 33.9 RDW 13.9 Plt Count 143 L Seg Neutrophils % Not Reportable Lymphocytes % Not Reportable Monocytes % Not Reportable Eosinophils % Not Reportable Basophils % Not Reportable Absolute Neutrophils Not Reportable Absolute Lymphocytes Not Reportable Absolute Monocytes Not Reportable Absolute Eosinophils Not Reportable Absolute Basophils Not Reportable Sodium 142.0 Potassium 4.5 Chloride 111 H Carbon Dioxide 20 L Anion Gap 11 BUN 69 H Creatinine 2.39 H Est GFR ( Amer) 25 L Est GFR (Non-Af Amer) 21 L Glucose 130 H Calcium 8.4 Iron 83.6 TIBC 194 L % Saturation 43 Ferritin 628.00 H Vitamin B12 > 1000.0 H Folate > 20.00 Impressions: Chest X-Ray 02/21/17 18:38 IMPRESSION: NO SIGNIFICANT RADIOGRAPHIC FINDING IN THE CHEST. Assessment & Plan - Diagnosis (1) Constipation Plan: Stool softeners. Monitor (2) Acute renal failure Is this a current diagnosis for this admission?: YesPlan: Is got underlying CKD is most likely from lupus. Presently she is got multifactorial causes for acute kidney injuryIncluding dehydration and a possible contrast nephropathy that was done as workup of AAA.Her to get notes from [place]. Meanwhile continue on IV fluids. Get renal ultrasound.No indications for renal replacements currently. (3) Anemia Is this a current diagnosis for this admission?: YesPlan: Adequate iron stores. Do additional testing and see if she needs to be started on erythropoietin (4) Bronchitis Is this a current diagnosis for this admission?: YesPlan: On the background of end-stage COPD. On antibiotics. (5) Hypertension Qualifiers: Hypertension type: unspecified secondary hypertension Qualified Code(s) : I15.9 - Secondary hypertension, unspecified; I15 - Secondary hypertension (6) Lupus Plan: Unsure of activity levels. Await urine analysis.
[2017-02-22] MEDS: METOPROLOL SUCCINATE 50 MG TAB.SR.24H PO SCH (10:39)
[2017-02-22] MEDS: DOCUSATE SODIUM 100 MG CAPSULE PO SCH ×2 (10:39→18:11)
[2017-02-22] MEDS: AMLODIPINE BESYLATE 5 MG TABLET PO SCH (10:39)
--- NOTE | 2017-02-22 13:52 | Physician Advisory Note ---
Physician Advisor ProgressNote .: Pursuant to the plan for [facility], I have reviewed the medical record for this patient. Physician Advisor Statement: Attending, please consider documentin. "ARF, suspect multifactorial including ATN due to IV contrast, + intravascular volume depletion ..., not yet back to baseline Cr of appx 1.5" 2. "Acute metabolic acidosis, suspect due to #1" 3. "chronic hypoxemic respiratory failure requiring 2L O2 at baseline" 4. "Acute bronchitis" ? or does attg feel pt doesn't need IV abx? (ED gave, not ordered since) 5. "SLE", or "lupus erythematosus", or ... - we need to specify type lupus 6. "Anemia of CKD stage 3" 7. "malnutrition [mild/mod/sev] with BMI 19.8, end-stage COPD, global muscle atrophy..." 8. Clarification: Is HTN essential, or, as in nephrol consult note, is it secondary? If so, what is it secondary to? Discussion: 61yo w/end-stage COPD w/chronic hypoxemic resp failure requiring 2L O2, SLE, CKD -3, CAD, HTN, hypothyroidism, br CA/mastec, recently eval'd AAA, recent ARF/ diarrheal illness that might have been C.diff (pt unsure, not good historian) - presented to ED 6 PM w/productive cough, difficulty breathing, fatigue, weakness. HR 100, RR24, 95% sat on __. WBC 10.5, Hgb 9.4, bicarb 20, BUN 73, Cr 2.7, glc 146, looking frail & chronically ill, w/dry mucosae, bilat wheezing, crackles, prolonged expirations, global muscle atrophy. ED gave Duonebs x2, IV Levaquin, IV Solumedrol, 1L IVF. Attg ordered nebs, flutter valve, IVF 3L at 250ml/hr, nephrol consult. H&P also mentioned continuing abx & considering steroids. After 1 MN, this [employer] pt is still persistently tachycardic w/HR >100 , with continued acute metabolic acidosis & continued ARF far from baseline. Appraiser Timber has ordered multiple lab evals to work up the ARF, f/u labs for next few days, recommends continuing IVF. Pt has 1+ edema now along with continued lung crackles on exam. Appropriate for Inpt status. CK
--- NOTE | 2017-02-22 16:19 | PDOC PROGRESS REPORT ---
Subjective Progress Note for:: 02/22/17 Subjective:: Patient is seen on rounds. She is resting in bed awake and alert. She denies any signicant shortness of breath above her normal. She denies any recent upper respiratory symptoms. She states cough is occasionally productive of thick white mucus. She denies nausea, vomiting or diarrhea recently. She states she was at [facility] for 4 days last week with recent ARF/ gastroenteritis type illness and had been home for 2 days. She did have some restriction of diet and had a CT of the abdomen with contrast for evaluation of a AAA during hospitalization. She denies any Physical Exam Vital Signs: Temp Pulse Resp BP Pulse Ox 98.0 F 100 17 148/64 H 99 02/22/17 11:32 02/22/17 14:00 02/22/17 13:52 02/22/17 11:32 02/22/17 11:32 Intake & Output 02/21/17 02/22/17 02/23/17 06:59 06:59 06:59 Intake Total 1300 Balance 1300 Weight 52.3 kg General appearance: PRESENT: no acute distress, thin, well-developed, well- nourished Head exam: PRESENT: atraumatic, normocephalic Eye exam: PRESENT: conjunctiva pink, EOMI, PERRLA. ABSENT: scleral icterus Ear exam: PRESENT: normal external ear exam Mouth exam: PRESENT: moist, tongue midline Neck exam: ABSENT: carotid bruit, JVD, lymphadenopathy, thyromegaly Respiratory exam: PRESENT: decreased breath sounds, symmetrical, unlabored Cardiovascular exam: PRESENT: RRR, +S1, +S2 Pulses: PRESENT: normal carotid pulses, normal radial pulses Vascular exam: PRESENT: normal capillary refill GI/Abdominal exam: PRESENT: normal bowel sounds, soft. ABSENT: distended, guarding, mass, organolmegaly, rebound, tenderness Rectal exam: PRESENT: deferred Extremities exam: PRESENT: full ROM. ABSENT: calf tenderness, clubbing, pedal edema Neurological exam: PRESENT: alert, awake, oriented to person, oriented to place , oriented to time, oriented to situation, CN II-XII grossly intact. ABSENT: motor sensory deficit Psychiatric exam: PRESENT: appropriate affect, normal mood. ABSENT: homicidal ideation, suicidal ideation Skin exam: PRESENT: dry, intact, warm. ABSENT: cyanosis, rash Results Laboratory Results: 02/22/17 05:00 02/22/17 05:00 02/21/17 02/22/17 02/22/17 23:05 05:00 05:00 WBC 8.7 RBC 2.82 L Hgb 8.8 L Hct 26.0 L MCV 92 MCH 31.2 MCHC 33.9 RDW 13.9 Plt Count 143 L Seg Neutrophils % Not Reportable Lymphocytes % Not Reportable Monocytes % Not Reportable Eosinophils % Not Reportable Basophils % Not Reportable Absolute Neutrophils Not Reportable Absolute Lymphocytes Not Reportable Absolute Monocytes Not Reportable Absolute Eosinophils Not Reportable Absolute Basophils Not Reportable Sodium 142.0 Potassium 4.5 Chloride 111 H Carbon Dioxide 20 L Anion Gap 11 BUN 69 H Creatinine 2.39 H Est GFR ( Amer) 25 L Est GFR (Non-Af Amer) 21 L Glucose 130 H Calcium 8.4 Iron 83.6 TIBC 194 L % Saturation 43 Ferritin 628.00 H Vitamin B12 > 1000.0 H Folate > 20.00 Impressions: Chest X-Ray 02/21/17 18:38 IMPRESSION: NO SIGNIFICANT RADIOGRAPHIC FINDING IN THE CHEST. Assessment & Plan - Diagnosis (1) Acute renal failure Qualifiers: Acute renal failure type: unspecified Qualified Code(s): N17.9 - Acute kidney failure, unspecified Is this a current diagnosis for this admission?: YesPlan: Most likely multifactorial from prerenal dehydration, IV contrast study and poor intake. She has baseline CKD 3 with a baseline creatinine of 1.[address] Chawla is following for nephrology. Renal ultrasound pending. Avoid nephrotoxic medications and dosages (2) Metabolic acidemia Is this a current diagnosis for this admission?: YesPlan: Secondary to number 1 (3) SLE (systemic lupus erythematosus) Qualifiers: Systemic lupus erythematosus organ involvement: unspecified Is this a current diagnosis for this admission?: YesPlan: Chronic (4) Chronic respiratory failure with hypoxia Is this a current diagnosis for this admission?: YesPlan: Patient requires 2 l/min via nasal cannula. Continue nebulizers and inhalers. Patient denies any upper respiratory symptoms. Patient has normal white count, now new findings on chest xray. She did receive one dose of IV levaguin last evening in the ED. Will hold off on antibiotics at the present time. (5) Anemia in CKD (chronic kidney disease) Qualifiers: Chronic kidney disease stage: stage 3 (moderate) Qualified Code(s): N18.3 - Chronic kidney disease, stage 3 (moderate); D63.1 - Anemia in chronic kidney disease Is this a current diagnosis for this admission?: YesPlan: No active bleeding. Will continue to monitor (6) Essential (primary) hypertension Is this a current diagnosis for this admission?: YesPlan: Continue current hypertensives (7) Protein calorie malnutrition Is this a current diagnosis for this admission?: YesPlan: Diet liberalized - Time Time Spent with patient: 25-34 minutes Critical Time spent with patient: 15-24 minutes Medications reviewed and adjusted accordingly: Yes
[2017-02-22 21:30] LABS: APPEARANCE,URINE CLEAR; BILIRUBIN,URINE NEGATIVE (NEGATIVE); GLUCOSE, URINE NEGATIVE (NEGATIVE); KETONES,URINE NEGATIVE (NEGATIVE); LEUKOCYTE ESTERASE,URINE SMALL (NEGATIVE); NITRITE,URINE NEGATIVE (NEGATIVE); PROTEIN,URINE 30 mg/dL (NEGATIVE); URINE SPECIFIC GRAVITY 1.011; UROBILINOGEN,URINE NEGATIVE mg/dL (<2.0)
[2017-02-22] MEDS: FLUCONAZOLE 100 MG TABLET PO SCH (21:39)
[2017-02-23] MEDS: NYSTATIN/DEXAMETH/DIPHEN SUSP 120 ML PO SCH ×4 (02:13→17:14)
[2017-02-23] MEDS: IPRATROPIUM/ALBUTEROL 0.5-2.5 MG/3 ML AMPUL NEB SCH ×4 (02:24→19:45)
[2017-02-23] MEDS ORDERED: NYSTATIN/DEXAMETH/DIPHEN SUSP 120 ML PO ONE (02:46)
[2017-02-23] MEDS: HEPARIN SOD (PORCINE) 5,000 UNIT/ML 1 ML SYRINGE SUBCUT SCH ×3 (05:36→21:28)
[2017-02-23 05:38] LABS: ANION GAP 8 (5-19); BLOOD UREA NITROGEN 62 mg/dL (7-20); CALCIUM 8.8 mg/dL (8.4-10.2); CARBON DIOXIDE 22 mmol/L (22-30); CHLORIDE 114 mmol/L (98-107); CREATININE RESULT 1.93 mg/dL (0.52-1.25); GLUCOSE 85 mg/dL (75-110); PHOSPHORUS 3.9 mg/dL (2.5-4.5); POTASSIUM 4.3 mmol/L (3.6-5.0); SODIUM 144.4 mmol/L (137-145)
[2017-02-23] MEDS: METOPROLOL SUCCINATE 50 MG TAB.SR.24H PO SCH (09:30)
[2017-02-23] MEDS: ASPIRIN 81 MG TABLET, CHEWABLE PO SCH (09:31)
[2017-02-23] MEDS: AMLODIPINE BESYLATE 5 MG TABLET PO SCH (09:32)
[2017-02-23] MEDS: DOCUSATE SODIUM 100 MG CAPSULE PO SCH ×2 (09:32→17:14)
[2017-02-23] MEDS: BUDESONIDE/FORMOTEROL 160-4.5 MCG 60 PUFF/6 GM MDI IH SCH ×2 (09:58→17:13)
[2017-02-23] MEDS: TIOTROPIUM BROMIDE DPI 5 CAP/KIT (18 MCG/CAP) IH SCH (09:58)
--- NOTE | 2017-02-23 14:18 | PDOC PROGRESS REPORT ---
Subjective Progress Note for:: 02/23/17 Subjective:: reason for visit: f/u [place], diarrhea, COPD exac, oral thrush hospital course: per other's notes - "Who is an extremely poor historian but limited information is available from the medical record. 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 She has subsequently developed nausea and vomiting prompting her to seek evaluation emergency room where she is found to have acute on chronic renal failure and referred to the hospital for admission. She is unable to provide additional history. Denying chest pain shortness of breath nausea at this time. She states she was at [facility] for 4 days last week with recent ARF/ gastroenteritis type illness and had been home for 2 days. She did have some restriction of diet and had a CT of the abdomen with contrast for evaluation of a AAA during hospitalization." She remains very difficult to get details regarding her medical history and now reports new diagnosis of cdiff diarrhea last week while at [facility]. She went there for evaluation of her AAA but they decided she was not a candidate for intervention at this time due to its size but before she could be discharged home she passed out and was admitted to the hospital. she reports that while there she had difficulty urinating, they were doing bladder scans every 6 hrs before finally placing fountain. she thinks she was sent home on flagyl but within 24 hrs of getting home she became weaker and couldn't keep her meds down and still having diarrhea. On eval here she is found to have acute renal failure. she is complaining "bad thrush" and is still very weak, nursing reports she can barely participate in her care due to weakness. ROS: as above, all systems reviewed, remaining systems negative. Physical Exam Vital Signs: Temp Pulse Resp BP Pulse Ox 97.4 F 79 18 137/69 H 100 02/23/17 11:00 02/23/17 11:00 02/23/17 11:00 02/23/17 11:00 02/23/17 11:00 Intake & Output 02/22/17 02/23/17 02/24/17 06:59 06:59 06:59 Intake Total 1300 360 Output Total 200 Balance 1300 160 Weight 52.3 kg 56 kg General appearance: PRESENT: no acute distress, well-developed Head exam: PRESENT: atraumatic, normocephalic Eye exam: PRESENT: EOMI. ABSENT: conjunctival injection, scleral icterus Mouth exam: PRESENT: moist, neck supple, other - thick, chunky white coating with surrounding erythema Neck exam: PRESENT: full ROM. ABSENT: tracheal deviation Respiratory exam: PRESENT: crackles. ABSENT: accessory muscle use Cardiovascular exam: PRESENT: RRR. ABSENT: systolic murmur Pulses: PRESENT: normal radial pulses, normal dorsalis pedis pul GI/Abdominal exam: PRESENT: normal bowel sounds, soft. ABSENT: tenderness Extremities exam: PRESENT: +2 edema. ABSENT: calf tenderness Musculoskeletal exam: PRESENT: normal inspection, other Neurological exam: PRESENT: alert, awake, oriented to person, oriented to place Psychiatric exam: PRESENT: appropriate affect, normal mood Skin exam: ABSENT: dry - moist, warm - cool Results Laboratory Results: 02/22/17 05:00 02/23/17 04:36 02/22/17 02/23/17 02/23/17 20:55 04:36 04:36 Sodium 144.4 Potassium 4.3 Chloride 114 H Carbon Dioxide 22 Anion Gap 8 BUN 62 H Creatinine 1.93 H Est GFR ( Amer) 32 L Est GFR (Non-Af Amer) 26 L Glucose 85 Calcium 8.8 Phosphorus 3.9 TSH 10.50 H Urine Color YELLOW Urine Appearance CLEAR Urine pH 5.0 Ur Specific [place] 1.011 Urine Protein 30 H Urine Glucose (UA) NEGATIVE Urine Ketones NEGATIVE Urine Blood SMALL H Urine Nitrite NEGATIVE Ur Leukocyte Esterase SMALL H Urine WBC (Auto) 6 Urine RBC (Auto) 1 Impressions: Chest X-Ray 02/21/17 18:38 IMPRESSION: NO SIGNIFICANT RADIOGRAPHIC FINDING IN THE CHEST. Status: Imported from PACS Assessment & Plan - Diagnosis (1) C. difficile colitis Is this a current diagnosis for this admission?: YesPlan: empiric flagyl; get old records from [facility] (2) Acute renal failure Qualifiers: Acute renal failure type: unspecified Qualified Code(s): N17.9 - Acute kidney failure, unspecified Is this a current diagnosis for this admission?: YesPlan: improved but not back to baseline; dr grover assisting. IVFs on hold due to hypervolemic state. f/u renal u/s, recent ct a/p shows no hydronephrosis or acute renal disease (3) Anemia Qualifiers: Anemia type: unspecified type Qualified Code(s): D64.9 - Anemia, unspecified Is this a current diagnosis for this admission?: YesPlan: slightly worse todya but no evidence for acute blood loss; continue to monitor H /H (4) Bronchitis Is this a current diagnosis for this admission?: Yes (5) Essential (primary) hypertension Is this a current diagnosis for this admission?: Yes (6) Lupus Is this a current diagnosis for this admission?: Yes (7) Protein calorie malnutrition Is this a current diagnosis for this admission?: Yes (8) Thrush, oral Is this a current diagnosis for this admission?: YesPlan: new; add topical treatment. - Time Time Spent with patient: 25-34 minutes
[2017-02-23] MEDS: METRONIDAZOLE 500 MG TABLET PO SCH ×2 (15:01→21:27)
[2017-02-23] MEDS: ISOSORBIDE MONONITRATE 30 MG TAB.ER.24H PO SCH (17:14)
[2017-02-23] MEDS: FLUCONAZOLE 100 MG TABLET PO SCH (21:27)
[2017-02-24] MEDS: IPRATROPIUM/ALBUTEROL 0.5-2.5 MG/3 ML AMPUL NEB SCH ×2 (02:11→08:24)
[2017-02-24] MEDS: NYSTATIN/DEXAMETH/DIPHEN SUSP 120 ML PO SCH ×4 (02:22→17:06)
[2017-02-24] MEDS: ACETAMINOPHEN 325 MG TABLET PO PRN ×2 (02:37→10:34)
--- NOTE | 2017-02-24 03:07 | RADIOLOGY REPORT (SQ) ---
EXAM DESCRIPTION: DUPLEX ART/DHRUV FLOW COMPLETE COMPLETED DATE/TIME: 02/24/2017 2:44 am REASON FOR STUDY: RENAL FAILURE; EVAL KIDNEYS, RENAL ART'S, R/O OBS COMPARISON: CT abdomen pelvis, 02/10/2017. TECHNIQUE: Realtime and static grayscale images acquired. Selected color Doppler, velocities and spe ctral images recorded. LIMITATIONS: None. FINDINGS: Known abdominal aortic aneurysm measures up to 3.8 cm in antral posterior diameter is bett er demonstrated on CT, 02/10/2017. RIGHT KIDNEY: RENAL ARTERY VELOCITIES: 33 cm/sec. Segmental artery velocity 40 cm/sec. RENAL VEIN: Color doppler flow present, patent. Respiration related artifact noted. VELOCITY RATIO: 0.8. Normal waveforms. KIDNEY: 9.3 cm. Increased echogenicity consistent with chronic medical renal disease. LEFT KIDNEY: RENAL ARTERY VELOCITIES: 40 cm/sec. Segmental artery velocity 39 cm/sec. RENAL VEIN: Color doppler flow present, patent. Respiration related artifact noted. VELOCITY RATIO: 1.0. Normal waveforms. KIDNEY: 7.2 cm. Increased echogenicity consistent with chronic medical renal disease. BLADDER: Normal. OTHER: No other significant finding. IMPRESSION: NO DOPPLER EVIDENCE OF HEMODYNAMICALLY SIGNIFICANT RENAL ARTERY STENOSIS. Known 3.8 cm diameter abdominal aortic aneurysm. Chronic medical renal disease. COMMENT: NORMAL RENAL ARTERY/AORTA VELOCITY RATIO IS LESS THAN OR EQUAL TO 3.5. TECHNICAL DOCUMENTATION: JOB ID: [id number] [employer]- All Rights Reserved
[2017-02-24 05:17] LABS: ABSOLUTE EOSINOPHILS # (AUTO) 0.1 10^3/uL (0.0-0.6); ABSOLUTE LYMPHOCYTES (AUTO) 0.7 10^3/uL (0.5-4.7); ABSOLUTE MONOCYTES (AUTO) 0.7 10^3/uL (0.1-1.4); BASOPHILS % (AUTO) 0.4 % (0-2); EOSINOPHILS % (AUTO) 1.7 % (0-6); HEMATOCRIT 24.6 % (36.0-47.0); HGB HCT DIFFERENCE -0.6; LYMPHOCYTES % (AUTO) 10.8 % (13-45); MEAN CORPUSCULAR HGB CONC 32.6 g/dL (32.0-36.0); MEAN CORPUSCULAR VOLUME 92 fl (80-97); MONOCYTES % (AUTO) 10.4 % (3-13); RED BLOOD COUNT 2.67 10^6/uL (3.72-5.28); RED CELL DISTRIBUTION WIDTH 14.3 % (11.5-14.0); SEGMENTED NEUTROPHILS % (AUTO) 76.7 % (42-78); WHITE BLOOD COUNT 6.5 10^3/uL (4.0-10.5)
[2017-02-24 05:21] LABS: ALANINE AMINOTRANSFERASE 43 U/L (9-52); ALBUMIN 2.3 g/dL (3.5-5.0); ALKALINE PHOSPHATASE 44 U/L (38-126); ANION GAP 6 (5-19); ASPARTATE AMINO TRANSFERASE 36 U/L (14-36); BILIRUBIN,DIRECT 0.4 mg/dL (0.0-0.4); BILIRUBIN,TOTAL 0.4 mg/dL (0.2-1.3); BLOOD UREA NITROGEN 55 mg/dL (7-20); CALCIUM 8.6 mg/dL (8.4-10.2); CARBON DIOXIDE 24 mmol/L (22-30); CHLORIDE 116 mmol/L (98-107); CREATININE RESULT 1.64 mg/dL (0.52-1.25); GLUCOSE 85 mg/dL (75-110); MAGNESIUM 1.7 mg/dL (1.6-2.3); POTASSIUM 3.9 mmol/L (3.6-5.0); SODIUM 145.9 mmol/L (137-145); TOTAL PROTEIN 5.5 g/dL (6.3-8.2)
[2017-02-24] MEDS: METRONIDAZOLE 500 MG TABLET PO SCH ×3 (05:31→21:57)
[2017-02-24] MEDS: HEPARIN SOD (PORCINE) 5,000 UNIT/ML 1 ML SYRINGE SUBCUT SCH ×3 (05:32→21:57)
[2017-02-24 07:06] LABS: PTH INTACT 58 pg/mL (15-65)
[2017-02-24] MEDS: DOCUSATE SODIUM 100 MG CAPSULE PO SCH ×2 (10:33→17:06)
[2017-02-24] MEDS: AMLODIPINE BESYLATE 5 MG TABLET PO SCH (10:33)
[2017-02-24] MEDS: ASPIRIN 81 MG TABLET, CHEWABLE PO SCH (10:34)
[2017-02-24] MEDS: METOPROLOL SUCCINATE 50 MG TAB.SR.24H PO SCH (10:34)
[2017-02-24] MEDS: BUDESONIDE/FORMOTEROL 160-4.5 MCG 60 PUFF/6 GM MDI IH SCH ×2 (10:35→17:06)
[2017-02-24] MEDS: TIOTROPIUM BROMIDE DPI 5 CAP/KIT (18 MCG/CAP) IH SCH (10:35)
--- NOTE | 2017-02-24 11:50 | PDOC PROGRESS REPORT ---
Subjective Progress Note for:: 02/24/17 Subjective:: reason for visit: f/u [place], diarrhea, COPD exac, oral thrush hospital course: per other's notes - "Who is an extremely poor historian but limited information is available from the medical record. 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 She has subsequently developed nausea and vomiting prompting her to seek evaluation emergency room where she is found to have acute on chronic renal failure and referred to the hospital for admission. She is unable to provide additional history. Denying chest pain shortness of breath nausea at this time. She states she was at [facility] for 4 days last week with recent ARF/ gastroenteritis type illness and had been home for 2 days. She did have some restriction of diet and had a CT of the abdomen with contrast for evaluation of a AAA during hospitalization." She remains very difficult to get details regarding her medical history and now reports new diagnosis of cdiff diarrhea last week while at [facility]. She went there for evaluation of her AAA but they decided she was not a candidate for intervention at this time due to its size but before she could be discharged home she passed out and was admitted to the hospital. she reports that while there she had difficulty urinating, they were doing bladder scans every 6 hrs before finally placing fountain. she thinks she was sent home on flagyl but within 24 hrs of getting home she became weaker and couldn't keep her meds down and still having diarrhea. On eval here she is found to have acute renal failure. Review of old records from [facility] confirm c diff colitis; also underwent workup for her renal disease including iPTH, random urine Pr/Cr, etc. It also confirms a COPD exac requiring systemic steroids prolonging her hospital course. vas surgery evaluated the AAA and decided to monitor only. she was actually constipated and required a rather aggressive bowel regimen to her moving again. she experienced urine retention and urology evaluated, not clear any etiology ever found but I suspect it was from all the atrovent they were giving her for wheezing. she continues to complain of "bad thrush" and is still very weak, nursing reports she can barely participate in her care due to weakness. Daughter has arrived and hopes to take her home with her to [place] upon discharge and assume 24/7 care at that time. ROS: as above, all systems reviewed, remaining systems negative. Physical Exam Vital Signs: Temp Pulse Resp BP Pulse Ox 97.7 F 97 22 H 131/73 H 100 02/24/17 07:00 02/24/17 08:24 02/24/17 08:24 02/24/17 07:00 02/24/17 07:00 Intake & Output 02/23/17 02/24/17 02/25/17 06:59 06:59 06:59 Intake Total 360 2006 Output Total 200 Balance 160 2006 Weight 56 kg 56 kg General appearance: PRESENT: no acute distress, well-developed, more interactive this morning Head exam: PRESENT: atraumatic, normocephalic Eye exam: PRESENT: EOMI. ABSENT: conjunctival injection, scleral icterus Mouth exam: PRESENT: moist, neck supple, other - thick, chunky white coating with surrounding erythema mildly improved Neck exam: PRESENT: full ROM. ABSENT: tracheal deviation Respiratory exam: PRESENT: crackles and opening squeaks on left ABSENT: accessory muscle use Cardiovascular exam: PRESENT: RRR. ABSENT: systolic murmur Pulses: PRESENT: normal radial pulses, normal dorsalis pedis pul GI/Abdominal exam: PRESENT: normal bowel sounds, soft. ABSENT: tenderness Extremities exam: PRESENT: +2 edemaas before ABSENT: calf tenderness Musculoskeletal exam: PRESENT: normal inspection, other Neurological exam: PRESENT: alert, awake, oriented to person, oriented to place Psychiatric exam: PRESENT: appropriate affect, normal mood Skin exam: ABSENT: dry - moist, warm - cool Results Laboratory Results: 02/24/17 04:33 02/24/17 04:33 02/23/17 02/24/17 02/24/17 04:36 04:33 04:33 WBC 6.5 RBC 2.67 L Hgb 8.0 L Hct 24.6 L MCV 92 MCH 30.0 MCHC 32.6 RDW 14.3 H Plt Count 149 L Seg Neutrophils % 76.7 Lymphocytes % 10.8 L Monocytes % 10.4 Eosinophils % 1.7 Basophils % 0.4 Absolute Neutrophils 5.0 Absolute Lymphocytes 0.7 Absolute Monocytes 0.7 Absolute Eosinophils 0.1 Absolute Basophils 0.0 Sodium 145.9 H Potassium 3.9 Chloride 116 H Carbon Dioxide 24 Anion Gap 6 BUN 55 H Creatinine 1.64 H Est GFR ( Amer) 38 L Est GFR (Non-Af Amer) 32 L Glucose 85 Calcium 8.6 Magnesium 1.7 Total Bilirubin 0.4 AST 36 ALT 43 Alkaline Phosphatase 44 Total Protein 5.5 L Albumin 2.3 L PTH Intact 58 Assessment & Plan - Diagnosis (1) C. difficile colitis Is this a current diagnosis for this admission?: YesPlan: recurrent; continue empiric flagyl for minimum 2 wks (2) Acute renal failure Qualifiers: Acute renal failure type: unspecified Qualified Code(s): N17.9 - Acute kidney failure, unspecified Is this a current diagnosis for this admission?: YesPlan: improved but not back to baseline; dr grover assisting. IVFs on hold due to hypervolemic state. renal u/s shows no renal art stenosis, obstruction, nephrolithiasis but confirms chronic medicorenal disease; recent ct a/p shows no hydronephrosis or acute renal disease (3) Anemia Qualifiers: Anemia type: unspecified type Qualified Code(s): D64.9 - Anemia, unspecified Is this a current diagnosis for this admission?: YesPlan: slightly worse again todya but no evidence for acute blood loss; she reports previously seeing DR Reid for this and receiving epo injections and transfusions in the past. continue to monitor H/H and transfuse for <8. iron studies done at [facility] are normal. (4) Bronchitis Is this a current diagnosis for this admission?: YesPlan: Chronic; no clear infectious source this go around; continue antitussive, nebs and supplemental O2 prn (5) Essential (primary) hypertension Is this a current diagnosis for this admission?: Yes (6) Lupus Is this a current diagnosis for this admission?: Yes (7) Protein calorie malnutrition Is this a current diagnosis for this admission?: Yes (8) Thrush, oral Is this a current diagnosis for this admission?: Yes - Time Time Spent with patient: 25-34 minutes
[2017-02-24] MEDS: BENZONATATE 100 MG CAPSULE PO SCH ×2 (13:55→21:57)
--- NOTE | 2017-02-24 14:09 | PDOC PROGRESS REPORT ---
Subjective Progress Note for:: 02/24/17 Subjective:: Patient seen in hospital today. She is doing a whole lot better. She denies any chest pain shortness of breath nausea nausea vomiting. Physical Exam Vital Signs: Temp Pulse Resp BP Pulse Ox 97.4 F 78 18 142/79 H 100 02/24/17 11:00 02/24/17 11:00 02/24/17 11:00 02/24/17 11:00 02/24/17 11:00 Intake & Output 02/23/17 02/24/17 02/25/17 06:59 06:59 06:59 Intake Total 360 2006 Output Total 200 Balance 160 2006 Weight 56 kg 56 kg General appearance: PRESENT: no acute distress Respiratory exam: PRESENT: clear to auscultation amaury. ABSENT: crackles, rhonchi Cardiovascular exam: PRESENT: +S1, +S2 GI/Abdominal exam: PRESENT: normal bowel sounds, soft. ABSENT: distended, firm , organomegaly, tenderness Extremities exam: PRESENT: +1 edema Neurological exam: PRESENT: alert, awake, oriented to person, oriented to place , oriented to time Results Laboratory Results: 02/24/17 04:33 02/24/17 04:33 02/23/17 02/24/17 02/24/17 04:36 04:33 04:33 WBC 6.5 RBC 2.67 L Hgb 8.0 L Hct 24.6 L MCV 92 MCH 30.0 MCHC 32.6 RDW 14.3 H Plt Count 149 L Seg Neutrophils % 76.7 Lymphocytes % 10.8 L Monocytes % 10.4 Eosinophils % 1.7 Basophils % 0.4 Absolute Neutrophils 5.0 Absolute Lymphocytes 0.7 Absolute Monocytes 0.7 Absolute Eosinophils 0.1 Absolute Basophils 0.0 Sodium 145.9 H Potassium 3.9 Chloride 116 H Carbon Dioxide 24 Anion Gap 6 BUN 55 H Creatinine 1.64 H Est GFR ( Amer) 38 L Est GFR (Non-Af Amer) 32 L Glucose 85 Calcium 8.6 Magnesium 1.7 Total Bilirubin 0.4 AST 36 ALT 43 Alkaline Phosphatase 44 Total Protein 5.5 L Albumin 2.3 L PTH Intact 58 Impressions: Chest X-Ray 02/21/17 18:38 IMPRESSION: NO SIGNIFICANT RADIOGRAPHIC FINDING IN THE CHEST. Assessment & Plan - Diagnosis (2) Acute renal failure Qualifiers: Acute renal failure type: unspecified Qualified Code(s): N17.9 - Acute kidney failure, unspecified Is this a current diagnosis for this admission?: YesPlan: Much improved and almost back to baseline. I am going to initiate her on low- dose of diuretics. (3) Anemia Qualifiers: Anemia type: unspecified type Qualified Code(s): D64.9 - Anemia, unspecified Is this a current diagnosis for this admission?: YesPlan: There is a drop of hemoglobin from 9+ to current 8. No active signs of GI bleed. However given her recent history of infections and Clostridium C. difficile this could be a reflection of that. Iron indicis are rather adequate. Note that she has been seeing heme oncologist for erythropoietin and transfusions in the past. (4) Bronchitis Is this a current diagnosis for this admission?: Yes (5) Hypertension Qualifiers: Hypertension type: unspecified secondary hypertension Qualified Code(s) : I15.9 - Secondary hypertension, unspecified; I15 - Secondary hypertension (6) Lupus Is this a current diagnosis for this admission?: YesPlan: Unsure of activity levels. Her urine analysis shows some proteinuria with no active sediments.At this point with improving renal numbers I am not going to initiate elaborate workup of lupus which looks like it is stable and rather quiet sent.
[2017-02-24 15:38] LABS: A/G RATIO 0.9 (0.7-1.7); ALBUMIN 2 2.8 g/dL (2.9-4.4); ALPHA-1-GLOBULIN 2 0.2 g/dL (0.0-0.4); GAMMA GLOBULIN 1.4 g/dL (0.4-1.8); PROTEIN TOTAL SERUM 5.8 g/dL (6.0-8.5)
[2017-02-24] MEDS: ISOSORBIDE MONONITRATE 30 MG TAB.ER.24H PO SCH (17:06)
[2017-02-24] MEDS: FLUCONAZOLE 100 MG TABLET PO SCH (21:57)
[2017-02-24] MEDS: ALBUTEROL SULFATE 0.083% NEB 2.5 MG/3 ML AMPUL NEB PRN (23:37)
[2017-02-25] MEDS: NYSTATIN/DEXAMETH/DIPHEN SUSP 120 ML PO SCH ×5 (00:07→23:47)
[2017-02-25] MEDS: BENZONATATE 100 MG CAPSULE PO SCH ×3 (05:48→21:34)
[2017-02-25] MEDS: METRONIDAZOLE 500 MG TABLET PO SCH ×3 (05:48→21:34)
[2017-02-25] MEDS: HEPARIN SOD (PORCINE) 5,000 UNIT/ML 1 ML SYRINGE SUBCUT SCH ×3 (05:48→21:34)
[2017-02-25 06:55] LABS: ANION GAP 9 (5-19); BLOOD UREA NITROGEN 45 mg/dL (7-20); CARBON DIOXIDE 24 mmol/L (22-30); CHLORIDE 115 mmol/L (98-107); CREATININE RESULT 1.32 mg/dL (0.52-1.25); GLUCOSE 88 mg/dL (75-110); POTASSIUM 3.9 mmol/L (3.6-5.0); SODIUM 147.8 mmol/L (137-145)
[2017-02-25] MEDS: ALBUTEROL SULFATE 0.083% NEB 2.5 MG/3 ML AMPUL NEB PRN ×3 (08:39→22:38)
[2017-02-25] MEDS: METOPROLOL SUCCINATE 50 MG TAB.SR.24H PO SCH (09:52)
[2017-02-25] MEDS: ASPIRIN 81 MG TABLET, CHEWABLE PO SCH (09:52)
[2017-02-25] MEDS: AMLODIPINE BESYLATE 5 MG TABLET PO SCH (09:52)
[2017-02-25] MEDS: DOCUSATE SODIUM 100 MG CAPSULE PO SCH ×2 (09:52→17:34)
[2017-02-25] MEDS: BUDESONIDE/FORMOTEROL 160-4.5 MCG 60 PUFF/6 GM MDI IH SCH (09:52)
[2017-02-25] MEDS: TIOTROPIUM BROMIDE DPI 5 CAP/KIT (18 MCG/CAP) IH SCH (09:52)
--- NOTE | 2017-02-25 11:36 | PDOC PROGRESS REPORT ---
Subjective Progress Note for:: 02/25/17 Subjective:: reason for visit: f/u [place], diarrhea, COPD exac, oral thrush hospital course: per other's notes - "Who is an extremely poor historian but limited information is available from the medical record. 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 She has subsequently developed nausea and vomiting prompting her to seek evaluation emergency room where she is found to have acute on chronic renal failure and referred to the hospital for admission. She is unable to provide additional history. Denying chest pain shortness of breath nausea at this time. She states she was at [facility] for 4 days last week with recent ARF/ gastroenteritis type illness and had been home for 2 days. She did have some restriction of diet and had a CT of the abdomen with contrast for evaluation of a AAA during hospitalization." She remains very difficult to get details regarding her medical history and now reports new diagnosis of cdiff diarrhea last week while at [facility]. She went there for evaluation of her AAA but they decided she was not a candidate for intervention at this time due to its small size but before she could be discharged home she passed out and was admitted to the hospital. she reports that while there she had difficulty urinating, they were doing bladder scans every 6 hrs before finally placing fountain, no etiology ever found. she thinks she was sent home on flagyl but within 24 hrs of getting home she became weaker and couldn't keep her meds down and still having diarrhea. On eval here she is found to have acute renal failure. Review of old records from [facility] confirm c diff colitis; also underwent workup for her renal disease including iPTH, random urine Pr/Cr, etc. It also confirms a COPD exac requiring systemic steroids prolonging her hospital course. vas surgery evaluated the AAA and decided to monitor only. she was actually constipated and required a rather aggressive bowel regimen to get her moving again. she experienced urine retention and urology evaluated, not clear any etiology ever found but I suspect it was from all the atrovent they were giving her for wheezing. she continues to complain of still very weak, nursing reports she can barely participate in her care due to weakness. Daughter has arrived and hopes to take her home with her to [place] upon discharge and assume 24/7 care at that time. she is very frustrated that her brathing seems to be getting worse and is asking to see her geotechnical intern, dr candelario. she denies chest pain, n/v and no diarrhea with one soft stool earlier this morning. ROS: as above, all systems reviewed, remaining systems negative. Physical Exam Vital Signs: Temp Pulse Resp BP Pulse Ox 97.7 F 102 H 22 H 149/81 H 95 02/25/17 08:00 02/25/17 08:39 02/25/17 08:39 02/25/17 08:00 02/25/17 08:39 Intake & Output 02/24/17 02/25/17 02/26/17 06:59 06:59 06:59 Intake Total 2006 860 Balance 2006 860 Weight 56 kg 56 kg General appearance: PRESENT: no acute distress, well-developed Head exam: PRESENT: atraumatic, normocephalic Eye exam: PRESENT: EOMI. ABSENT: conjunctival injection, scleral icterus Mouth exam: PRESENT: moist, neck supple, other - thrush has nearly resolved Neck exam: PRESENT: full ROM. ABSENT: tracheal deviation Respiratory exam: PRESENT: crackles and opening squeaks and tight wheezes bilat with at least mild accessory muscle use Cardiovascular exam: PRESENT: RRR. ABSENT: systolic murmur Pulses: PRESENT: normal radial pulses, normal dorsalis pedis pul GI/Abdominal exam: PRESENT: normal bowel sounds, soft. ABSENT: tenderness Extremities exam: PRESENT: +2 edemaas before ABSENT: calf tenderness Musculoskeletal exam: PRESENT: normal inspection, other Neurological exam: PRESENT: alert, awake, oriented to person, oriented to place Psychiatric exam: PRESENT: appropriate affect, normal mood Skin exam: ABSENT: dry - moist, warm - cool Results Laboratory Results: 02/24/17 04:33 02/25/17 06:13 02/23/17 02/25/17 04:36 06:13 Sodium 147.8 H Potassium 3.9 Chloride 115 H Carbon Dioxide 24 Anion Gap 9 BUN 45 H Creatinine 1.32 H Est GFR ( Amer) 49 L Est GFR (Non-Af Amer) 41 L Glucose 88 Calcium 9.0 Total Protein 5.8 L Albumin 2.8 L PTH Intact 58 Assessment & Plan - Diagnosis (1) C. difficile colitis Is this a current diagnosis for this admission?: YesPlan: recurrent; continue empiric flagyl for minimum 2 wks and lactobacillus for a month (2) Acute renal failure Qualifiers: Acute renal failure type: unspecified Qualified Code(s): N17.9 - Acute kidney failure, unspecified Is this a current diagnosis for this admission?: YesPlan: improved but not back to baseline; dr grover assisting. IVFs on hold due to hypervolemic state. renal u/s shows no renal art stenosis, obstruction, nephrolithiasis but confirms chronic medicorenal disease; recent ct a/p shows no hydronephrosis or acute renal disease (3) Anemia Qualifiers: Anemia type: unspecified type Qualified Code(s): D64.9 - Anemia, unspecified Is this a current diagnosis for this admission?: YesPlan: slightly worse yesterday but no evidence for acute blood loss; she reports previously seeing DR Reid for this and receiving epo injections and transfusions in the past. continue to monitor H/H and transfuse for <8. iron studies done at [facility] are normal. I ordered cbc today but it hasn't been done, not clear why. will reorder for the morning and transfuse for HCT <25 (4) COPD (chronic obstructive pulmonary disease) Qualifiers: COPD type: chronic bronchitis Is this a current diagnosis for this admission?: YesPlan: I tried to get her off the atrovent to avoid recurrent urine retention but her breathing actually worsened, will adjust her meds yet again so we can add scheduled duoneb bid and continue prn albuterol and scheduled pulmicort. consult dr candelario for his assistance. (5) Bronchitis Is this a current diagnosis for this admission?: YesPlan: Chronic; no clear infectious source this go around; continue antitussive, nebs and supplemental O2 prn (6) Essential (primary) hypertension Is this a current diagnosis for this admission?: Yes (7) Lupus Is this a current diagnosis for this admission?: Yes (8) Protein calorie malnutrition Is this a current diagnosis for this admission?: Yes (9) Thrush, oral Is this a current diagnosis for this admission?: YesPlan: improved with topical treatment. - Time Time Spent with patient: 15-24 minutes Medications reviewed and adjusted accordingly: Yes Anticipated discharge: Home Within: within 72 hours
[2017-02-25] MEDS: ISOSORBIDE MONONITRATE 30 MG TAB.ER.24H PO SCH (17:34)
[2017-02-25] MEDS: LACTOBACILLUS ACIDOPHILUS 250 MG TAB PO SCH (17:34)
[2017-02-25] MEDS: BUDESONIDE NEB 0.5 MG/2 ML AMPUL NEB SCH (19:41)
[2017-02-25] MEDS: IPRATROPIUM/ALBUTEROL 0.5-2.5 MG/3 ML AMPUL NEB SCH (19:42)
[2017-02-26] MEDS: ALBUTEROL SULFATE 0.083% NEB 2.5 MG/3 ML AMPUL NEB PRN ×3 (04:37→15:44)
[2017-02-26] MEDS: METRONIDAZOLE 500 MG TABLET PO SCH ×3 (05:27→21:16)
[2017-02-26] MEDS: BENZONATATE 100 MG CAPSULE PO SCH ×3 (05:27→21:16)
[2017-02-26] MEDS: NYSTATIN/DEXAMETH/DIPHEN SUSP 120 ML PO SCH ×4 (05:27→23:14)
[2017-02-26] MEDS: HEPARIN SOD (PORCINE) 5,000 UNIT/ML 1 ML SYRINGE SUBCUT SCH ×3 (05:27→21:16)
[2017-02-26 06:51] LABS: MEAN CORPUSCULAR HEMOGLOBIN 30.1 pg (27.0-33.4); MEAN CORPUSCULAR HGB CONC 32.1 g/dL (32.0-36.0); MEAN CORPUSCULAR VOLUME 94 fl (80-97); RED BLOOD COUNT 2.66 10^6/uL (3.72-5.28); RED CELL DISTRIBUTION WIDTH 14.6 % (11.5-14.0); WHITE BLOOD COUNT 7.7 10^3/uL (4.0-10.5)
[2017-02-26 07:19] LABS: ANION GAP 8 (5-19); BLOOD UREA NITROGEN 40 mg/dL (7-20); CARBON DIOXIDE 25 mmol/L (22-30); CHLORIDE 114 mmol/L (98-107); CREATININE RESULT 1.41 mg/dL (0.52-1.25); GLUCOSE 95 mg/dL (75-110); POTASSIUM 4.2 mmol/L (3.6-5.0); SODIUM 147.1 mmol/L (137-145)
[2017-02-26] MEDS: BUDESONIDE NEB 0.5 MG/2 ML AMPUL NEB SCH ×2 (08:27→20:38)
[2017-02-26] MEDS: IPRATROPIUM/ALBUTEROL 0.5-2.5 MG/3 ML AMPUL NEB SCH ×2 (08:27→20:37)
[2017-02-26] MEDS: METOPROLOL SUCCINATE 50 MG TAB.SR.24H PO SCH (09:36)
[2017-02-26] MEDS: ASPIRIN 81 MG TABLET, CHEWABLE PO SCH (09:36)
[2017-02-26] MEDS: DOCUSATE SODIUM 100 MG CAPSULE PO SCH ×2 (09:36→17:21)
[2017-02-26] MEDS: LACTOBACILLUS ACIDOPHILUS 250 MG TAB PO SCH ×2 (09:36→17:21)
[2017-02-26] MEDS: AMLODIPINE BESYLATE 5 MG TABLET PO SCH (09:37)
--- NOTE | 2017-02-26 15:03 | PDOC PROGRESS REPORT ---
Subjective Progress Note for:: 02/26/17 Subjective:: reason for visit: f/u [place], diarrhea, COPD exac, oral thrush hospital course: per other's notes - "Who is an extremely poor historian but limited information is available from the medical record. 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 She has subsequently developed nausea and vomiting prompting her to seek evaluation emergency room where she is found to have acute on chronic renal failure and referred to the hospital for admission. She is unable to provide additional history. Denying chest pain shortness of breath nausea at this time. She states she was at [facility] for 4 days last week with recent ARF/ gastroenteritis type illness and had been home for 2 days. She did have some restriction of diet and had a CT of the abdomen with contrast for evaluation of a AAA during hospitalization." She remains very difficult to get details regarding her medical history and now reports new diagnosis of cdiff diarrhea last week while at [facility]. She went there for evaluation of her AAA but they decided she was not a candidate for intervention at this time due to its small size but before she could be discharged home she passed out and was admitted to the hospital. she reports that while there she had difficulty urinating, they were doing bladder scans every 6 hrs before finally placing fountain, no etiology ever found. she thinks she was sent home on flagyl but within 24 hrs of getting home she became weaker and couldn't keep her meds down and still having diarrhea. On eval here she is found to have acute renal failure. Review of old records from [facility] confirm c diff colitis; also underwent workup for her renal disease including iPTH, random urine Pr/Cr, etc. It also confirms a COPD exac requiring systemic steroids prolonging her hospital course. vas surgery evaluated the AAA and decided to monitor only. she was actually constipated and required a rather aggressive bowel regimen to get her moving again. she experienced urine retention and urology evaluated, not clear any etiology ever found but I suspect it was from all the atrovent they were giving her for wheezing/COPD exac. she continues to complain primarily of breathlessness and wheezing with dry, hacking aggravating cough and still very weak. Daughter hopes to take her home with her to [place] upon discharge and assume 24/7 care at that time. Pt is very frustrated that her breathing seems to be getting worse and is asking to see her embedder, dr candelario. she denies chest pain, n/v and no diarrhea with 2 soft stools in last 24 hrs. ROS: as above, all systems reviewed, remaining systems negative. Physical Exam Vital Signs: Temp Pulse Resp BP Pulse Ox 97.6 F 95 22 H 137/70 H 100 02/26/17 11:43 02/26/17 13:44 02/26/17 13:44 02/26/17 11:43 02/26/17 13:44 Intake & Output 02/25/17 02/26/17 02/27/17 06:59 06:59 06:59 Intake Total 860 550 Balance 860 550 Weight 56 kg 56 kg General appearance: PRESENT: mild acute emotional distress, well-developed, poorly nourished Head exam: PRESENT: atraumatic, normocephalic Eye exam: PRESENT: EOMI. ABSENT: conjunctival injection, scleral icterus Mouth exam: PRESENT: moist, neck supple, other - thrush has nearly resolved, shallow ulcer on left tongue where she bit it in her sleep Neck exam: PRESENT: full ROM. ABSENT: tracheal deviation Respiratory exam: PRESENT: crackles and opening squeaks and tight wheezes bilat L>R with at least mild accessory muscle use Cardiovascular exam: PRESENT: RRR. ABSENT: systolic murmur Pulses: PRESENT: normal radial pulses, normal dorsalis pedis pul GI/Abdominal exam: PRESENT: normal bowel sounds, soft. ABSENT: tenderness Extremities exam: PRESENT: +2 edema as before ABSENT: calf tenderness Musculoskeletal exam: PRESENT: normal inspection, other Neurological exam: PRESENT: alert, awake, oriented to person, oriented to place Psychiatric exam: PRESENT: appropriate affect, normal mood Skin exam: ABSENT: dry - moist, warm - cool Results Laboratory Results: 02/26/17 06:21 02/26/17 06:21 02/26/17 02/26/17 06:21 06:21 WBC 7.7 RBC 2.66 L Hgb 8.0 L Hct 25.0 L MCV 94 MCH 30.1 MCHC 32.1 RDW 14.6 H Plt Count 172 Sodium 147.1 H Potassium 4.2 Chloride 114 H Carbon Dioxide 25 Anion Gap 8 BUN 40 H Creatinine 1.41 H Est GFR ( Amer) 46 L Est GFR (Non-Af Amer) 38 L Glucose 95 Calcium 9.0 Assessment & Plan - Diagnosis (1) C. difficile colitis Is this a current diagnosis for this admission?: YesPlan: recurrent; continue empiric flagyl for minimum 2 wks and lactobacillus for a month (2) Acute renal failure Qualifiers: Acute renal failure type: unspecified Qualified Code(s): N17.9 - Acute kidney failure, unspecified Is this a current diagnosis for this admission?: YesPlan: improved but not back to baseline; dr grover assisting. IVFs on hold due to hypervolemic state. renal u/s shows no renal art stenosis, obstruction, nephrolithiasis but confirms chronic medicorenal disease; recent ct a/p shows no hydronephrosis or acute renal disease (3) Anemia Qualifiers: Anemia type: unspecified type Qualified Code(s): D64.9 - Anemia, unspecified Is this a current diagnosis for this admission?: YesPlan: unchagned today, slightly worse yesterday but no evidence for acute blood loss; she reports previously seeing DR Reid for this and receiving epo injections and transfusions in the past. continue to monitor H/H and transfuse for <8. iron studies done at [facility] are normal. transfuse for HCT <25 (4) COPD (chronic obstructive pulmonary disease) Qualifiers: COPD type: chronic bronchitis Is this a current diagnosis for this admission?: YesPlan: I tried to get her off the atrovent to avoid recurrent urine retention but her breathing actually worsened, so adjusted her meds yet again so we can add scheduled duoneb bid and continue prn albuterol and scheduled pulmicort. consulted dr candelario for his assistance. (5) Bronchitis Is this a current diagnosis for this admission?: Yes (6) Essential (primary) hypertension Is this a current diagnosis for this admission?: Yes (7) Lupus Is this a current diagnosis for this admission?: Yes (8) Protein calorie malnutrition Is this a current diagnosis for this admission?: Yes (9) Thrush, oral Is this a current diagnosis for this admission?: Yes - Time Time Spent with patient: 25-34 minutes
[2017-02-26 17:06] LABS: ARTERIAL BLOOD BASE EXCESS 0.3 mmol/L; ARTERIAL BLOOD O2 SATURATION 86.6 % (94-98)
[2017-02-26] MEDS: ISOSORBIDE MONONITRATE 30 MG TAB.ER.24H PO SCH (17:21)
[2017-02-26] MEDS ORDERED: ROFLUMILAST 500 MCG TABLET PO ONE (17:30)
[2017-02-26 21:10] LABS: ARTERIAL BLOOD BASE EXCESS -1.7 mmol/L; ARTERIAL BLOOD O2 SATURATION 93.2 % (94-98)
[2017-02-27] MEDS: BENZONATATE 100 MG CAPSULE PO SCH ×3 (05:37→21:25)
[2017-02-27] MEDS: NYSTATIN/DEXAMETH/DIPHEN SUSP 120 ML PO SCH (05:37)
[2017-02-27] MEDS: HEPARIN SOD (PORCINE) 5,000 UNIT/ML 1 ML SYRINGE SUBCUT SCH ×3 (05:37→21:25)
[2017-02-27] MEDS: METRONIDAZOLE 500 MG TABLET PO SCH ×3 (05:37→21:25)
[2017-02-27] MEDS: ALBUTEROL SULFATE 0.083% NEB 2.5 MG/3 ML AMPUL NEB PRN ×3 (05:48→16:02)
--- NOTE | 2017-02-27 08:05 | RADIOLOGY REPORT (SQ) ---
EXAM DESCRIPTION: CHEST SINGLE VIEW COMPLETED DATE/TIME: 02/27/2017 7:48 am REASON FOR STUDY: resp failure COMPARISON: 02/21/2017. EXAM PARAMETERS: NUMBER OF VIEWS: One view. TECHNIQUE: Single frontal radiographic view of the chest acquired. RADIATION DOSE: NA LIMITATIONS: None. FINDINGS: LUNGS AND PLEURA: Moderate emphysematous hyperinflation. [id number] mixed interstit ial and airspace patchiness of the left lung base. Mild reticular markings of the right lung base. MEDIASTINUM AND HILAR STRUCTURES: No masses. Contour normal. HEART AND VASCULAR STRUCTURES: Heart normal in size. Atherosclerosis. BONES: No acute findings. HARDWARE: Left upper lateral hemithoracic clips. OTHER: No other significant finding. IMPRESSION: Increased small patchiness of the left lower lobe may indicate pneumonia, layered effusi on, and/or asymmetric pulmonary edema. TECHNICAL DOCUMENTATION: JOB ID: [id number]
[2017-02-27] MEDS: IPRATROPIUM/ALBUTEROL 0.5-2.5 MG/3 ML AMPUL NEB SCH ×2 (08:21→19:44)
[2017-02-27] MEDS: BUDESONIDE NEB 0.5 MG/2 ML AMPUL NEB SCH ×2 (08:21→19:44)
[2017-02-27] MEDS: DOCUSATE SODIUM 100 MG CAPSULE PO SCH ×2 (09:21→17:46)
[2017-02-27] MEDS: AMLODIPINE BESYLATE 5 MG TABLET PO SCH (09:21)
[2017-02-27] MEDS: METOPROLOL SUCCINATE 50 MG TAB.SR.24H PO SCH (09:22)
[2017-02-27] MEDS: ASPIRIN 81 MG TABLET, CHEWABLE PO SCH (09:22)
[2017-02-27] MEDS: LACTOBACILLUS ACIDOPHILUS 250 MG TAB PO SCH ×2 (09:23→17:45)
--- NOTE | 2017-02-27 11:14 | PDOC PROGRESS REPORT ---
Subjective Progress Note for:: 02/27/17 Subjective:: reason for visit: f/u [place], diarrhea, COPD exac, oral thrush hospital course: per other's notes - "Who is an extremely poor historian but limited information is available from the medical record. 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 She has subsequently developed nausea and vomiting prompting her to seek evaluation emergency room where she is found to have acute on chronic renal failure and referred to the hospital for admission. She is unable to provide additional history. Denying chest pain shortness of breath nausea at this time. She states she was at [facility] for 4 days last week with recent ARF/ gastroenteritis type illness and had been home for 2 days. She did have some restriction of diet and had a CT of the abdomen with contrast for evaluation of a AAA during hospitalization." She remains very difficult to get details regarding her medical history and now reports new diagnosis of cdiff diarrhea last week while at [facility]. She went there for evaluation of her AAA but they decided she was not a candidate for intervention at this time due to its small size but before she could be discharged home she passed out and was admitted to the hospital. she reports that while there she had difficulty urinating, they were doing bladder scans every 6 hrs before finally placing fountain, no etiology ever found. she thinks she was sent home on flagyl but within 24 hrs of getting home she became weaker and couldn't keep her meds down and still having diarrhea. On eval here she is found to have acute renal failure. Review of old records from [facility] confirm c diff colitis; also underwent workup for her renal disease including iPTH, random urine Pr/Cr, etc. It also confirms a COPD exac requiring systemic steroids prolonging her hospital course. vasc surgery evaluated the AAA and decided to monitor only. she was actually constipated and required a rather aggressive bowel regimen to get her moving again. she experienced urine retention and urology evaluated, not clear any etiology ever found but I suspect it was from all the atrovent they were giving her for wheezing/COPD exac. she continues to complain primarily of breathlessness and wheezing with dry, hacking aggravating cough and still very weak, didn't tolerate BIPAP for long, < 2hrs due to smothering and "confined" feeling. Pt is very frustrated that her breathing is no better and now her voice is cracking and hoarse. she denies chest pain, n/v and no diarrhea in last 24 hrs. Daughter hopes to take her home with her to [place] upon discharge and assume 24 /7 care at that time. ROS: as above, all systems reviewed, remaining systems negative. Physical Exam Vital Signs: Temp Pulse Resp BP Pulse Ox 97.1 F 90 18 131/66 H 100 02/27/17 07:38 02/27/17 07:38 02/27/17 07:38 02/27/17 07:38 02/27/17 07:38 Intake & Output 02/26/17 02/27/17 02/28/17 06:59 06:59 06:59 Intake Total 550 608 Output Total 2 Balance 550 606 Weight 56 kg 56 kg General appearance: PRESENT: no acute emotional distress, well-developed, poorly nourished; broken "spastic" speech pattern with hoarseness Head exam: PRESENT: atraumatic, normocephalic Eye exam: PRESENT: EOMI. ABSENT: conjunctival injection, scleral icterus Mouth exam: PRESENT: moist, neck supple, other - thrush has nearly resolved, shallow ulcer on left tongue where she bit it in her sleep Neck exam: PRESENT: full ROM. ABSENT: tracheal deviation Respiratory exam: PRESENT: crackles and opening squeaks and tight wheezes bilat L>R with at least mild accessory muscle use Cardiovascular exam: PRESENT: RRR. ABSENT: systolic murmur Pulses: PRESENT: normal radial pulses, normal dorsalis pedis pul GI/Abdominal exam: PRESENT: normal bowel sounds, soft. ABSENT: tenderness Extremities exam: PRESENT: +2 edema as before ABSENT: calf tenderness Musculoskeletal exam: PRESENT: normal inspection, other Neurological exam: PRESENT: alert, awake, oriented to person, oriented to place Psychiatric exam: PRESENT: appropriate affect, normal mood Skin exam: ABSENT: dry - moist, warm - cool Results Laboratory Results: 02/26/17 06:21 02/26/17 06:21 02/26/17 02/26/17 16:50 20:30 Carbonic Acid 2.09 H 1.88 H HCO3/H2CO3 Ratio 13:1 13:1 ABG pH 7.23 L 7.24 L ABG pCO2 69.4 H* 62.3 H ABG pO2 62.4 L 79.2 L ABG HCO3 28.3 H 25.9 ABG O2 Saturation 86.6 L 93.2 L ABG Base Excess 0.3 -1.7 FiO2 1.5L 30% Impressions: Chest X-Ray 02/27/17 06:00 IMPRESSION: Increased small patchiness of the left lower lobe may indicate pneumonia, layered effusion, and/or asymmetric pulmonary edema. Assessment & Plan - Diagnosis (1) C. difficile colitis Is this a current diagnosis for this admission?: Yes (2) Acute renal failure Qualifiers: Acute renal failure type: unspecified Qualified Code(s): N17.9 - Acute kidney failure, unspecified Is this a current diagnosis for this admission?: Yes (3) Anemia Qualifiers: Anemia type: unspecified type Qualified Code(s): D64.9 - Anemia, unspecified Is this a current diagnosis for this admission?: Yes (4) COPD (chronic obstructive pulmonary disease) Qualifiers: COPD type: chronic bronchitis Is this a current diagnosis for this admission?: Yes (5) Bronchitis Is this a current diagnosis for this admission?: Yes (6) Essential (primary) hypertension Is this a current diagnosis for this admission?: Yes (7) Lupus Is this a current diagnosis for this admission?: Yes (8) Protein calorie malnutrition Is this a current diagnosis for this admission?: Yes (9) Thrush, oral Is this a current diagnosis for this admission?: Yes (10) Pneumonia Qualifiers: Pneumonia type: due to unspecified organism Laterality: left Lung location: lower lobe of lung Qualified Code(s): J18.1 - Lobar pneumonia, unspecified organism Is this a current diagnosis for this admission?: YesPlan: seems to have developed over the last week, really unclear if infiltrate or effusion so will ck ct chest before starting on abx due to her cdiff colitis. - Time Time Spent with patient: 35 or more minutes Medications reviewed and adjusted accordingly: Yes - Plan Summary Plan Summary: discussed with dr candelario, very poor prognosis and he is recommending home with hospice and chg to DNR as she will likely never wean off vent once placed on and would require trach and home ventilator.
--- NOTE | 2017-02-27 12:17 | RADIOLOGY REPORT (SQ) ---
EXAM DESCRIPTION: CT CHEST WITHOUT COMPLETED DATE/TIME: 02/27/2017 11:53 am REASON FOR STUDY: hypoxia COMPARISON: Recent radiographs. 2016 CT. TECHNIQUE: CT scan performed of the chest without intravenous contrast. Images reviewed with lung, soft tissue and bone windows. Reconstructed coronal and sagittal MPR images reviewed. All images st ored on PACS. All CT scanners at this facility use dose modulation, iterative reconstruction, and/or weight based d osing when appropriate to reduce radiation dose to as low as reasonably achievable (ALARA). [facility]: Dose Right [facility]: CareDose [facility]: Dose Right [facility]: Teradose 4D [facility]: [employer] RADIATION DOSE: Up-to-date CT equipment and radiation dose reduction techniques were employed. CTDIv ol: 6.4 mGy. DLP: 273 mGy-cm. mGy. LIMITATIONS: No technical limitations. FINDINGS: LUNGS AND PLEURA: Hyperinflated. Emphysema. Bilateral relatively small somewhat loculate d appearing dependent pleural effusions. No consolidating lobar pneumonia. Mild interstitial thicke [place] in the lower lobes. HILAR AND MEDIASTINAL STRUCTURES: No bulky adenopathy or mass evident. Limited noncontrast assessmen t. HEART AND VASCULAR STRUCTURES: No aneurysm. No pericardial effusion. UPPER ABDOMEN: No significant findings. Limited exam. THYROID AND OTHER SOFT TISSUES: No gross thyroid mass. Generalized subcutaneous edema/anasarca with asymmetry over the right lower chest and upper posterior back. Status post left mastectomy and axill za dissection. BONES: Osteopenic without fracture or bone lesion detected. HARDWARE: None in the chest. OTHER: No other significant findings. IMPRESSION: 1. COPD. 2. Small effusions with basilar changes as above. TECHNICAL DOCUMENTATION: JOB ID: [id number] Quality ID # [id number]: Final reports with documentation of one or more dose reduction techniques (e.g., Au tomated exposure control, adjustment of the mA and/or kV according to patient size, use of iterative reconstruction technique) 2010 [employer]- All Rights Reserved
[2017-02-27 16:27] LABS: ARTERIAL BLOOD BASE EXCESS -1.5 mmol/L; ARTERIAL BLOOD O2 SATURATION 96.2 % (94-98)
[2017-02-27] MEDS: ISOSORBIDE MONONITRATE 30 MG TAB.ER.24H PO SCH (17:46)
--- NOTE | 2017-02-27 19:10 | PDOC CONSULTATION ---
Consultation Consult Date: 02/26/17 Attending physician:: JESSICA YOUNG Consult reason:: COPD History of Present Illness Admission Date/PCP: 02/21/17 22:03 BLANCA GRIDER DO History of Present Illness: LAURYN PETTY is a 61 year old female with a history of end-stage COPD, hypertension, history of CVA of the breast, CKD stage 3/4 with a base creatinine of 1.5 was admitted with history of progressive weakness and shortness of breath.She is not very sure of her history. She is currently in bed on oxygen and looks extremely weak and almost cachectic.She says she was being worked up for initial nausea vomiting diarrhea this was followed by chest infection and history of being on antibiotics. Apparently she was hospitalized in [place] that the week before and she was discharged on Wednesday. Then she gives history of being worked up for possible abdominal aortic aneurysm. Unsure of whether she had angiogram and use of contrast [place].Currently she says her nausea vomiting is better. She denies any history of fever chills. She has left-sided back pains. No history of dysuria hematuria.Diarrhea has resolved and she has been constipated for the last 2 days. She does not know if she was positive for C. difficile and what antibiotics was given.She is folloed in clinic her FEV1 16% ,her DLCO13% with profound air trapping in MAR 2016--> chronic hypoxic,hypercapnic respiratory Past Medical History Cardiac Medical History: Reports: Coronary Artery Disease, Myocardial Infarction , Hypertension Denies: Atrial Fibrillation, Congestive Heart Failure, Hyperlipidema, Peripheral Vascular Disease, Pulmonary Embolism, Heart Murmur Pulmonary Medical History: Reports: Chronic Obstructive Pulmonary Disease (COPD) , Pneumonia Denies: Asthma, Bronchitis, Respiratory Failure, Sleep Apnea, Tuberculosis Neurological Medical History: Denies: Seizures Endocrine Medical History: Reports: Hypothyroidism Denies: Hyperthyroidism Renal/ Medical History: Denies: End Stage Renal Disease Malignancy Medical History: Reports: Breast Cancer Denies: Leukemia, Lung Cancer GI Medical History: Reports: Gastroesophageal Reflux Disease Denies: Crohn's Disease, Hiatal Hernia Musculoskeltal Medical History: Reports: Arthritis Denies: Fibromyalgia Psychiatric Medical History: Reports: Depression Denies: Bipolar Disorder, Dementia, Post Traumatic Stress Disorder Hematology: Reports: Anemia Denies: Hemophilia, Sickle Cell Disease Infectious Medical History: Denies: HIV Past Surgical History Past Surgical History: Reports: Appendectomy, Cardiac Catheterization - stent x 2, Cholecystectomy, Mastectomy, Tubal Ligation Denies: Amputation, Section, Colostomy, Coronary Artery Bypass Graft , Gastric Bypass Surgery, Herniorrhaphy, Hysterectomy, Pacemaker, Tonsillectomy Social History Lives with: Family Smoking Status: Never Smoker Passive smoke exposure as: Both Frequency of Alcohol Use: None Hx Recreational Drug Use: No Hx Prescription Drug Abuse: No - Advance Directive Resuscitation Status: Full Code Family History Family History: COPD, Hyperlipidemia Parental Family History Reviewed: No Children Family History Reviewed: No Sibling(s) Family History Reviewed.: No Medication/Allergy Home Medications: Albuterol Sulfate [Ventolin Hfa] 2 puff IH Q4HP PRN 02/21/17 Amlodipine Besylate [Amlodipine Besylate] 5 mg PO DAILY 02/21/17 Aspirin [Aspirin 81 mg Chewable Tablet] 81 mg PO DAILY 02/21/17 Budesonide/Formoterol Fumarate [Symbicort 160-4.5 Mcg Inhaler] 2 puff IH BID Cholecalciferol (Vitamin D3) [Vitamin D3] 1,000 units PO DAILY 02/21/17 Epoetin Darren [Procrit Inj 40,000 Unit/1 ml Vial (Renal)] 40,000 units SQ Q2DAYS 02/21/17 Isosorbide Mononitrate [Imdur 30 mg Tablet.er] 30 mg PO QPM 02/21/17 Metoprolol Succinate [Toprol Xl] 50 mg PO DAILY 02/21/17 Omeprazole 40 mg PO DAILY 02/21/17 Ondansetron HCl [Zofran 4 mg Tablet] 4 mg PO Q4HP PRN 02/21/17 Pravastatin Sodium [Pravastatin Sodium] 10 mg PO DAILY 02/21/17 Tiotropium [place] [Spiriva Handihaler 5 Cap/Kit (18 Mcg/Cap)] 18 mcg IH DAILY 02/21/17 Folic Acid/Vitamin B Comp W-C [Nephrocaps Multiple Vitamin Capsule] 1 cap PO WSUPPER 02/22/17 Losartan Potassium [Cozaar 25 mg Tablet] 25 mg PO DAILY 02/22/17 Morphine Sulfate [Morphine Ir 15 mg Tablet] 15 mg PO Q4HP PRN 02/22/17 Nitroglycerin [Nitrostat] 0.4 mg SL Q5MP PRN 02/22/17 Polyethylene Glycol 3350 [Miralax Powder 17 gm/Packet] 17 gm PO DAILY 02/22/17 Allergies/Adverse Reactions: Sulfa (Sulfonamide Antibiotics) Allergy (Severe, Verified 02/21/17 20:17) iodine [Iodine] Allergy (Unknown, Verified 02/21/17 20:17) Shellfish * [Shellfish] Allergy (Verified 02/21/17 20:17) Review of Systems ROS unobtainable: Due to mental status Physical Exam Vital Signs: Temp Pulse Resp BP Pulse Ox 97.4 F 95 19 126/72 H 97 02/26/17 16:00 02/26/17 16:00 02/26/17 16:00 02/26/17 16:00 02/26/17 16:00 Intake & Output 02/25/17 02/26/17 02/27/17 06:59 06:59 06:59 Intake Total 860 550 3 Balance 860 550 3 Weight 56 kg 56 kg General appearance: PRESENT: disheveled, mild distress, thin Head exam: PRESENT: atraumatic, normocephalic Eye exam: PRESENT: conjunctiva pale, EOMI Mouth exam: PRESENT: dry mucosa, tongue midline Neck exam: ABSENT: carotid bruit, JVD, lymphadenopathy, thyromegaly Respiratory exam: PRESENT: decreased breath sounds, prolonged expiratory phas, rhonchi, symmetrical Cardiovascular exam: PRESENT: RRR, +S1, +S2 Pulses: PRESENT: normal radial pulses GI/Abdominal exam: PRESENT: normal bowel sounds, soft. ABSENT: distended, guarding, mass, organolmegaly, rebound, tenderness Rectal exam: PRESENT: deferred Neurological exam: PRESENT: awake Skin exam: PRESENT: dry Results Laboratory Results: 02/26/17 06:21 02/26/17 06:21 02/26/17 02/26/17 06:21 06:21 WBC 7.7 RBC 2.66 L Hgb 8.0 L Hct 25.0 L MCV 94 MCH 30.1 MCHC 32.1 RDW 14.6 H Plt Count 172 Sodium 147.1 H Potassium 4.2 Chloride 114 H Carbon Dioxide 25 Anion Gap 8 BUN 40 H Creatinine 1.41 H Est GFR ( Amer) 46 L Est GFR (Non-Af Amer) 38 L Glucose 95 Calcium 9.0 Impressions: Chest X-Ray 02/21/17 18:38 IMPRESSION: NO SIGNIFICANT RADIOGRAPHIC FINDING IN THE CHEST. Assessment & Plan - Diagnosis (1) Chronic respiratory failure with hypoxia Is this a current diagnosis for this admission?: YesPlan: BIPAP min FIO2 keep SAO2 90-94 (2) SLE (systemic lupus erythematosus) Qualifiers: Systemic lupus erythematosus organ involvement: unspecified Is this a current diagnosis for this admission?: Yes (3) Protein calorie malnutrition Is this a current diagnosis for this admission?: Yes (4) COPD (chronic obstructive pulmonary disease) Qualifiers: COPD type: chronic bronchitis Is this a current diagnosis for this admission?: YesPlan: PFT 04/14 very severe obtructive disease;air trapping and very severe decrese in diffusion capacity will check current ABG this alone pretends a poor prognosis
--- NOTE | 2017-02-27 19:16 | PDOC PROGRESS REPORT ---
Subjective Progress Note for:: 02/27/17 Subjective:: refused BIPAP Physical Exam Vital Signs: Temp Pulse Resp BP Pulse Ox 97.1 F 90 35 H 131/70 H 95 02/27/17 15:49 02/27/17 16:02 02/27/17 16:02 02/27/17 15:49 02/27/17 16:02 Pulse Oximeter Continuous Start: 02/26/17 17: 15 Freq: RTQ4 Status: Active Document 02/27/17 16:02 HCR (Rec: 02/27/17 18:43 HCR [email or web address]) Pulse Oximetry Assessment Oxygen Saturation (92-100) 95 Oxygen Delivery Method Bi-pap Fraction of Inspired Oxygen (FIO2) 30 Equipment Usage Equipment in Use Continuous SpO2 Machine # 14 Intake & Output 02/26/17 02/27/17 02/28/17 06:59 06:59 06:59 Intake Total 550 608 363 Output Total 2 Balance 550 606 363 Weight 56 kg 56 kg Results Laboratory Results: 02/26/17 06:21 02/26/17 06:21 02/26/17 02/27/17 20:30 16:15 Carbonic Acid 1.88 H 2.11 H HCO3/H2CO3 Ratio 13:1 12:1 ABG pH 7.24 L 7.20 L* ABG pCO2 62.3 H 70.0 H* ABG pO2 79.2 L 102.9 H ABG HCO3 25.9 26.7 H ABG O2 Saturation 93.2 L 96.2 ABG Base Excess -1.7 -1.5 FiO2 30% 30% Impressions: Chest CT 02/27/17 00:00 IMPRESSION: 1. COPD. 2. Small effusions with basilar changes as above. Chest X-Ray 02/27/17 06:00 IMPRESSION: Increased small patchiness of the left lower lobe may indicate pneumonia, layered effusion, and/or asymmetric pulmonary edema. Assessment & Plan - Diagnosis (1) Chronic respiratory failure with hypoxia Is this a current diagnosis for this admission?: Yes (2) SLE (systemic lupus erythematosus) Qualifiers: Systemic lupus erythematosus organ involvement: unspecified Is this a current diagnosis for this admission?: Yes (3) Protein calorie malnutrition Is this a current diagnosis for this admission?: YesPlan: nominal po intake (4) COPD (chronic obstructive pulmonary disease) Qualifiers: COPD type: chronic bronchitis Is this a current diagnosis for this admission?: YesPlan: PFT 04/14 very severe obtructive disease;air trapping and very severe decrese in diffusion capacity will check current ABG this alone pretends a poor prognosis
[2017-02-28] MEDS: HEPARIN SOD (PORCINE) 5,000 UNIT/ML 1 ML SYRINGE SUBCUT SCH ×3 (05:49→21:33)
[2017-02-28] MEDS: BENZONATATE 100 MG CAPSULE PO SCH ×3 (05:49→21:33)
[2017-02-28] MEDS: METRONIDAZOLE 500 MG TABLET PO SCH ×3 (06:06→21:33)
[2017-02-28 07:35] LABS: HEMATOCRIT 25.6 % (36.0-47.0); HGB HCT DIFFERENCE -1.6; MEAN CORPUSCULAR HEMOGLOBIN 30.1 pg (27.0-33.4); MEAN CORPUSCULAR HGB CONC 31.2 g/dL (32.0-36.0); MEAN CORPUSCULAR VOLUME 96 fl (80-97); RED BLOOD COUNT 2.65 10^6/uL (3.72-5.28); RED CELL DISTRIBUTION WIDTH 15.3 % (11.5-14.0); WHITE BLOOD COUNT 5.5 10^3/uL (4.0-10.5)
[2017-02-28 07:51] LABS: ARTERIAL BLOOD BASE EXCESS -0.7 mmol/L; ARTERIAL BLOOD O2 SATURATION 92.1 % (94-98)
[2017-02-28 07:55] LABS: ALANINE AMINOTRANSFERASE 41 U/L (9-52); ALKALINE PHOSPHATASE 55 U/L (38-126); ANION GAP 10 (5-19); ASPARTATE AMINO TRANSFERASE 41 U/L (14-36); BILIRUBIN,DIRECT 0.4 mg/dL (0.0-0.4); BILIRUBIN,TOTAL 0.4 mg/dL (0.2-1.3); BLOOD UREA NITROGEN 36 mg/dL (7-20); CARBON DIOXIDE 26 mmol/L (22-30); CHLORIDE 111 mmol/L (98-107); GLUCOSE 77 mg/dL (75-110); TOTAL PROTEIN 6.5 g/dL (6.3-8.2)
[2017-02-28 08:11] LABS: BAND NEUTROPHILS % (MANUAL) 1 % (3-5); BASOPHILS % (MANUAL) 1 % (0-2); EOSINOPHILS % (MANUAL) 2 % (0-6); LYMPHOCYTES % (MANUAL) 9 % (13-45); TOTAL CELLS COUNTED 100
[2017-02-28 08:13] LABS: HYPOCHROMASIA 1+; OVALOCYTES SLIGHT; PLATELET CLUMPS PRESENT; POIKILOCYTOSIS SLIGHT; TEAR DROP CELLS SLIGHT
[2017-02-28] MEDS: IPRATROPIUM/ALBUTEROL 0.5-2.5 MG/3 ML AMPUL NEB SCH ×2 (08:35→20:00)
[2017-02-28] MEDS: BUDESONIDE NEB 0.5 MG/2 ML AMPUL NEB SCH ×2 (08:36→19:59)
[2017-02-28] MEDS: METOPROLOL SUCCINATE 50 MG TAB.SR.24H PO SCH (10:35)
[2017-02-28] MEDS: ASPIRIN 81 MG TABLET, CHEWABLE PO SCH (10:35)
[2017-02-28] MEDS: DOCUSATE SODIUM 100 MG CAPSULE PO SCH ×2 (10:35→19:28)
[2017-02-28] MEDS: AMLODIPINE BESYLATE 5 MG TABLET PO SCH (10:37)
[2017-02-28] MEDS: LACTOBACILLUS ACIDOPHILUS 250 MG TAB PO SCH ×2 (10:37→19:28)
[2017-02-28] MEDS ORDERED: NORMAL SALINE 250 ML IV PRN ×2 (10:42)
--- NOTE | 2017-02-28 11:32 | PDOC PROGRESS REPORT ---
Subjective Progress Note for:: 02/28/17 Subjective:: reason for visit: f/u [facility], diarrhea, COPD exac, oral thrush hospital course: per other's notes - "Who is an extremely poor historian but limited information is available from the medical record. 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 She has subsequently developed nausea and vomiting prompting her to seek evaluation emergency room where she is found to have acute on chronic renal failure and referred to the hospital for admission. She is unable to provide additional history. Denying chest pain shortness of breath nausea at this time. She states she was at [facility] for 4 days last week with recent ARF/ gastroenteritis type illness and had been home for 2 days. She did have some restriction of diet and had a CT of the abdomen with contrast for evaluation of a AAA during hospitalization." She remains very difficult to get details regarding her medical history and now reports new diagnosis of cdiff diarrhea last week while at [facility]. She went there for evaluation of her AAA but they decided she was not a candidate for intervention at this time due to its small size but before she could be discharged home she passed out and was admitted to the hospital. she reports that while there she had difficulty urinating, they were doing bladder scans every 6 hrs before finally placing fountain, no etiology ever found. she thinks she was sent home on flagyl but within 24 hrs of getting home she became weaker and couldn't keep her meds down and still having diarrhea. On eval here she is found to have acute renal failure. Review of old records from [facility] confirm c diff colitis; also underwent workup for her renal disease including iPTH, random urine Pr/Cr, etc. It also confirms a COPD exac requiring systemic steroids prolonging her hospital course. vasc surgery evaluated the AAA and decided to monitor only. she was actually constipated and required a rather aggressive bowel regimen to get her moving again. she experienced urine retention and urology evaluated, not clear any etiology ever found but I suspect it was from all the atrovent they were giving her for wheezing/COPD exac. she continues to complain primarily of breathlessness and wheezing with dry, hacking aggravating cough and still very weak. she is frightened that she is dying. she tolerated the BIPAP overnight by her accounts but RT tells me this morning she only lasted about 3 hours. Her ABG shows no change from prior, with or without the BiPAP and she is clearly failing to progress. review of the record, PFTs in 2016 shows severe disease at that time, unresponsive to bronchodilators with FEV1 only 13%, 0.35L, FEV1/FVC only 23% and severely depressed diffusion capacity only 19%, an independent risk factor for mortality.she denies chest pain, n/v and no diarrhea in last 24 hrs. Daughter hopes to take her home with her to [place] upon discharge and assume 24 /7 care at that time. I spoke with pt this morning and explained her failure to improve, even with trials of BiPAP and suggested that she might need to go on mechanical ventilation but to do so would be permanent due to the severe disease in her lungs and require trach and likely vent dependent, a sentiment echoed by dr candelario. She adamantly states her desire to stay off life support and instructed me to change her to DNI. she fully understands the consequences of this decision asking me to make sure she doesn't suffer when the time comes. ROS: as above, all systems reviewed, remaining systems negative. Physical Exam Vital Signs: Temp Pulse Resp BP Pulse Ox 97.3 F 87 24 H 140/79 H 104 H 02/28/17 07:38 02/28/17 08:36 02/28/17 08:36 02/28/17 07:38 02/28/17 08:36 Intake & Output 02/27/17 02/28/17 03/01/17 06:59 06:59 06:59 Intake Total 608 368 120 Output Total 2 500 Balance 606 368 -380 Weight 56 kg 56 kg General appearance: PRESENT: no acute emotional distress, well-developed, poorly nourished; broken "spastic" speech pattern with hoarseness Head exam: PRESENT: atraumatic, normocephalic Eye exam: PRESENT: EOMI. ABSENT: conjunctival injection, scleral icterus Mouth exam: PRESENT: moist, neck supple, other - thrush has nearly resolved, shallow ulcer on left tongue where she bit it in her sleep Neck exam: PRESENT: full ROM. ABSENT: tracheal deviation Respiratory exam: PRESENT: crackles and opening squeaks and tight wheezes bilat L>R with at least mild accessory muscle use with very little air movement overall. Cardiovascular exam: PRESENT: RRR. ABSENT: systolic murmur Pulses: PRESENT: normal radial pulses, normal dorsalis pedis pul GI/Abdominal exam: PRESENT: normal bowel sounds, soft. ABSENT: tenderness Extremities exam: PRESENT: +2 edema as before ABSENT: calf tenderness Musculoskeletal exam: PRESENT: normal inspection, other Neurological exam: PRESENT: alert, awake, oriented to person, oriented to place Psychiatric exam: PRESENT: appropriate affect, normal mood Skin exam: ABSENT: dry - moist, warm - cool Results Laboratory Results: 02/28/17 06:37 02/28/17 06:37 02/27/17 02/28/17 02/28/17 16:15 05:45 06:37 WBC 5.5 RBC 2.65 L Hgb 8.0 L Hct 25.6 L MCV 96 MCH 30.1 MCHC 31.2 L RDW 15.3 H Plt Count 209 Seg Neutrophils % Not Reportable Lymphocytes % Not Reportable Monocytes % Not Reportable Eosinophils % Not Reportable Basophils % Not Reportable Absolute Neutrophils Not Reportable Absolute Lymphocytes Not Reportable Absolute Monocytes Not Reportable Absolute Eosinophils Not Reportable Absolute Basophils Not Reportable Carbonic Acid 2.11 H 2.16 H HCO3/H2CO3 Ratio 12:1 12:1 ABG pH 7.20 L* 7.20 L* ABG pCO2 70.0 H* 71.7 H* ABG pO2 102.9 H 78.1 L ABG HCO3 26.7 H 27.6 H ABG O2 Saturation 96.2 92.1 L ABG Base Excess -1.5 -0.7 FiO2 30% 30% Sodium Potassium Chloride Carbon Dioxide Anion Gap BUN Creatinine Est GFR ( Amer) Est GFR (Non-Af Amer) Glucose Calcium Total Bilirubin AST ALT Alkaline Phosphatase Total Protein Albumin 02/28/17 06:37 WBC RBC Hgb Hct MCV MCH MCHC RDW Plt Count Seg Neutrophils % Lymphocytes % Monocytes % Eosinophils % Basophils % Absolute Neutrophils Absolute Lymphocytes Absolute Monocytes Absolute Eosinophils Absolute Basophils Carbonic Acid HCO3/H2CO3 Ratio ABG pH ABG pCO2 ABG pO2 ABG HCO3 ABG O2 Saturation ABG Base Excess FiO2 Sodium 147.0 H Potassium 4.0 Chloride 111 H Carbon Dioxide 26 Anion Gap 10 BUN 36 H Creatinine 1.20 Est GFR ( Amer) 55 L Est GFR (Non-Af Amer) 46 L Glucose 77 Calcium 9.0 Total Bilirubin 0.4 AST 41 H ALT 41 Alkaline Phosphatase 55 Total Protein 6.5 Albumin 3.0 L Impressions: Chest CT 02/27/17 00:00 IMPRESSION: 1. COPD. 2. Small effusions with basilar changes as above. Chest X-Ray 02/27/17 06:00 IMPRESSION: Increased small patchiness of the left lower lobe may indicate pneumonia, layered effusion, and/or asymmetric pulmonary edema. Status: Image reviewed by me - agree with rads Assessment & Plan - Diagnosis (1) COPD (chronic obstructive pulmonary disease) Qualifiers: COPD type: chronic bronchitis Is this a current diagnosis for this admission?: YesPlan: progressive and end stage, unlikely to improve much from where she is right now. continue intermittent BiPAP prn for increase WOB but go no further per her wishes. transfuse 2U PRBCs to try and help O2 delivery to the tissues aiming to get her HCT >30. otherwise continue supportive care. (2) C. difficile colitis Is this a current diagnosis for this admission?: YesPlan: recurrent; continue empiric flagyl for minimum 2 wks and lactobacillus for a month (3) Acute renal failure Qualifiers: Acute renal failure type: unspecified Qualified Code(s): N17.9 - Acute kidney failure, unspecified Is this a current diagnosis for this admission?: Yes (4) Anemia Qualifiers: Anemia type: unspecified type Qualified Code(s): D64.9 - Anemia, unspecified Is this a current diagnosis for this admission?: YesPlan: unchagned today, slightly worse overall but no evidence for acute blood loss; she reports previously seeing DR Reid for this and receiving epo injections and transfusions in the past. iron studies done at [facility] are normal. transfuse for HCT <30 due to severe resp distress and poor perfusion (5) Bronchitis Is this a current diagnosis for this admission?: Yes (6) Essential (primary) hypertension Is this a current diagnosis for this admission?: Yes (7) Lupus Is this a current diagnosis for this admission?: Yes (8) Protein calorie malnutrition Is this a current diagnosis for this admission?: Yes (9) Thrush, oral Is this a current diagnosis for this admission?: Yes (10) Pneumonia Qualifiers: Pneumonia type: due to unspecified organism Laterality: left Lung location: lower lobe of lung Qualified Code(s): J18.1 - Lobar pneumonia, unspecified organism Is this a current diagnosis for this admission?: Yes - Time Time Spent with patient: 35 or more minutes Medications reviewed and adjusted accordingly: Yes
[2017-02-28] MEDS: ALBUTEROL SULFATE 0.083% NEB 2.5 MG/3 ML AMPUL NEB PRN ×2 (11:33→16:30)
[2017-02-28] MEDS: ISOSORBIDE MONONITRATE 30 MG TAB.ER.24H PO SCH (19:28)
[2017-02-28 20:12] LABS: ABSOLUTE EOSINOPHILS # (AUTO) 0.1 10^3/uL (0.0-0.6); ABSOLUTE LYMPHOCYTES (AUTO) 0.4 10^3/uL (0.5-4.7); ABSOLUTE MONOCYTES (AUTO) 0.5 10^3/uL (0.1-1.4); ABSOLUTE NEUT (AUTO) 5.6 10^3/uL (1.7-8.2); BASOPHILS % (AUTO) 0.3 % (0-2); EOSINOPHILS % (AUTO) 0.9 % (0-6); HGB HCT DIFFERENCE -2.1; LYMPHOCYTES % (AUTO) 5.7 % (13-45); MEAN CORPUSCULAR HEMOGLOBIN 29.9 pg (27.0-33.4); MEAN CORPUSCULAR HGB CONC 31.2 g/dL (32.0-36.0); MEAN CORPUSCULAR VOLUME 96 fl (80-97); MONOCYTES % (AUTO) 7.6 % (3-13); RED BLOOD COUNT 3.44 10^6/uL (3.72-5.28); RED CELL DISTRIBUTION WIDTH 15.3 % (11.5-14.0); SEGMENTED NEUTROPHILS % (AUTO) 85.5 % (42-78); WHITE BLOOD COUNT 6.6 10^3/uL (4.0-10.5)
[2017-02-28 20:17] LABS: HEMOGLOBIN 10.3 g/dL (12.0-15.5)
[2017-03-01] MEDS: ALBUTEROL SULFATE 0.083% NEB 2.5 MG/3 ML AMPUL NEB PRN ×2 (01:02→23:44)
[2017-03-01] MEDS: METRONIDAZOLE 500 MG TABLET PO SCH ×3 (05:31→21:15)
[2017-03-01] MEDS: HEPARIN SOD (PORCINE) 5,000 UNIT/ML 1 ML SYRINGE SUBCUT SCH ×3 (05:31→21:15)
[2017-03-01] MEDS: BENZONATATE 100 MG CAPSULE PO SCH ×3 (05:31→21:15)
[2017-03-01 07:15] LABS: ABSOLUTE LYMPHOCYTES (AUTO) 0.6 10^3/uL (0.5-4.7); ABSOLUTE MONOCYTES (AUTO) 0.8 10^3/uL (0.1-1.4); ABSOLUTE NEUT (AUTO) 6.7 10^3/uL (1.7-8.2); BASOPHILS % (AUTO) 0.3 % (0-2); EOSINOPHILS % (AUTO) 0.6 % (0-6); HEMATOCRIT 35.7 % (36.0-47.0); HEMOGLOBIN 11.1 g/dL (12.0-15.5); HGB HCT DIFFERENCE -2.4; MEAN CORPUSCULAR HEMOGLOBIN 29.7 pg (27.0-33.4); MEAN CORPUSCULAR HGB CONC 31.1 g/dL (32.0-36.0); MEAN CORPUSCULAR VOLUME 96 fl (80-97); MONOCYTES % (AUTO) 9.3 % (3-13); RED BLOOD COUNT 3.74 10^6/uL (3.72-5.28); RED CELL DISTRIBUTION WIDTH 15.5 % (11.5-14.0); SEGMENTED NEUTROPHILS % (AUTO) 82.8 % (42-78); WHITE BLOOD COUNT 8.1 10^3/uL (4.0-10.5)
[2017-03-01 07:39] LABS: ANION GAP 7 (5-19); BLOOD UREA NITROGEN 36 mg/dL (7-20); CALCIUM 8.8 mg/dL (8.4-10.2); CARBON DIOXIDE 26 mmol/L (22-30); CHLORIDE 113 mmol/L (98-107); CREATININE RESULT 1.39 mg/dL (0.52-1.25); GLUCOSE 76 mg/dL (75-110); POTASSIUM 4.3 mmol/L (3.6-5.0); SODIUM 146.3 mmol/L (137-145)
[2017-03-01] MEDS: BUDESONIDE NEB 0.5 MG/2 ML AMPUL NEB SCH ×2 (08:24→19:48)
[2017-03-01] MEDS: IPRATROPIUM/ALBUTEROL 0.5-2.5 MG/3 ML AMPUL NEB SCH ×2 (08:24→19:48)
[2017-03-01] MEDS: AMLODIPINE BESYLATE 5 MG TABLET PO SCH ×2 (09:34→10:12)
[2017-03-01] MEDS: METOPROLOL SUCCINATE 50 MG TAB.SR.24H PO SCH ×2 (09:34→10:12)
[2017-03-01] MEDS: LACTOBACILLUS ACIDOPHILUS 250 MG TAB PO SCH ×2 (09:39→17:37)
[2017-03-01] MEDS: ASPIRIN 81 MG TABLET, CHEWABLE PO SCH (09:39)
[2017-03-01] MEDS: DOCUSATE SODIUM 100 MG CAPSULE PO SCH ×2 (09:39→17:38)
[2017-03-01] MEDS: DEXAMETHASONE SOD PHOS INJ 10 MG/1 ML VIAL IV SCH ×2 (10:19→21:14)
--- NOTE | 2017-03-01 11:12 | RADIOLOGY REPORT (SQ) ---
EXAM DESCRIPTION: CHEST SINGLE VIEW COMPLETED DATE/TIME: 03/01/2017 10:47 am REASON FOR STUDY: CHEST PAIN COMPARISON: 02/27/2017 EXAM PARAMETERS: NUMBER OF VIEWS: One view. TECHNIQUE: Single frontal radiographic view of the chest acquired. RADIATION DOSE: NA LIMITATIONS: None. FINDINGS: LUNGS AND PLEURA: The lungs are hyperexpanded. Mild interstitial changes are suggested in the lung bases, left more than right. MEDIASTINUM AND HILAR STRUCTURES: No masses. Contour normal. HEART AND VASCULAR STRUCTURES: Heart normal in size. Normal vasculature. BONES: No acute findings. HARDWARE: Surgical clips in the left axilla. OTHER: No other significant finding. IMPRESSION: Chronic lung changes with no acute cardiopulmonary disease. TECHNICAL DOCUMENTATION: JOB ID: [id number]
--- NOTE | 2017-03-01 11:46 | PDOC PROGRESS REPORT ---
Subjective Progress Note for:: 03/01/17 Subjective:: BIPAP being used Physical Exam Vital Signs: Temp Pulse Resp BP Pulse Ox 97.6 F 71 25 H 108/55 L 99 03/01/17 08:00 03/01/17 08:24 03/01/17 08:24 03/01/17 08:00 03/01/17 08:24 Pulse Oximeter Continuous Start: 02/26/17 17: 15 Freq: RTQ4 Status: Active Document 03/01/17 08:24 [facility] (Rec: 03/01/17 08:31 [facility] [email or web address]) Pulse Oximetry Assessment Oxygen Saturation (92-100) 99 Oxygen Delivery Method Bi-pap Fraction of Inspired Oxygen (FIO2) 45 Equipment Usage Equipment in Use Continuous SpO2 Machine # 14 Intake & Output 02/28/17 03/01/17 03/02/17 06:59 06:59 06:59 Intake Total 368 1465 Output Total 750 Balance 368 715 Weight 56 kg 56 kg General appearance: PRESENT: no acute distress, disheveled, thin, well-developed Head exam: PRESENT: atraumatic, normocephalic Eye exam: PRESENT: conjunctiva pale, EOMI Mouth exam: PRESENT: dry mucosa, tongue midline Neck exam: ABSENT: carotid bruit, JVD, lymphadenopathy, thyromegaly Respiratory exam: PRESENT: decreased breath sounds, prolonged expiratory phas, rales, rhonchi, symmetrical Cardiovascular exam: PRESENT: RRR, +S1, +S2 Pulses: PRESENT: normal radial pulses GI/Abdominal exam: PRESENT: normal bowel sounds, soft. ABSENT: distended, guarding, mass, organolmegaly, rebound, tenderness Rectal exam: PRESENT: deferred Gentrourinary exam: PRESENT: indwelling catheter Musculoskeletal exam: PRESENT: normal inspection Neurological exam: PRESENT: awake Skin exam: PRESENT: dry, warm Results Laboratory Results: 03/01/17 06:48 03/01/17 06:48 02/28/17 02/28/17 03/01/17 11:03 19:50 06:48 WBC 6.6 8.1 RBC 3.44 L 3.74 Hgb 10.3 L D 11.1 L Hct 33.0 L 35.7 L MCV 96 96 MCH 29.9 29.7 MCHC 31.2 L 31.1 L RDW 15.3 H 15.5 H Plt Count 167 164 Seg Neutrophils % 85.5 H 82.8 H Lymphocytes % 5.7 L 7.0 L Monocytes % 7.6 9.3 Eosinophils % 0.9 0.6 Basophils % 0.3 0.3 Absolute Neutrophils 5.6 6.7 Absolute Lymphocytes 0.4 L 0.6 Absolute Monocytes 0.5 0.8 Absolute Eosinophils 0.1 0.0 Absolute Basophils 0.0 0.0 Sodium Potassium Chloride Carbon Dioxide Anion Gap BUN Creatinine Est GFR ( Amer) Est GFR (Non-Af Amer) Glucose Calcium Blood Type B POSITIVE Antibody Screen NEGATIVE 03/01/17 06:48 WBC RBC Hgb Hct MCV MCH MCHC RDW Plt Count Seg Neutrophils % Lymphocytes % Monocytes % Eosinophils % Basophils % Absolute Neutrophils Absolute Lymphocytes Absolute Monocytes Absolute Eosinophils Absolute Basophils Sodium 146.3 H Potassium 4.3 Chloride 113 H Carbon Dioxide 26 Anion Gap 7 BUN 36 H Creatinine 1.39 H Est GFR ( Amer) 46 L Est GFR (Non-Af Amer) 38 L Glucose 76 Calcium 8.8 Blood Type Antibody Screen Impressions: Chest CT 02/27/17 00:00 IMPRESSION: 1. COPD. 2. Small effusions with basilar changes as above. Chest X-Ray 03/01/17 10:19 IMPRESSION: Chronic lung changes with no acute cardiopulmonary disease. Assessment & Plan - Diagnosis (1) Chronic respiratory failure with hypoxia Is this a current diagnosis for this admission?: YesPlan: bipap st to bipap avaps (2) SLE (systemic lupus erythematosus) Qualifiers: Systemic lupus erythematosus organ involvement: unspecified Is this a current diagnosis for this admission?: Yes (3) Protein calorie malnutrition Is this a current diagnosis for this admission?: Yes (4) COPD (chronic obstructive pulmonary disease) Qualifiers: COPD type: chronic bronchitis Is this a current diagnosis for this admission?: Yes
[2017-03-01] MEDS: ACETAMINOPHEN 325 MG TABLET PO PRN (15:15)
--- NOTE | 2017-03-01 16:39 | PDOC PROGRESS REPORT ---
Subjective Progress Note for:: 03/01/17 Subjective:: reason for visit: f/u [facility], diarrhea, COPD exac, oral thrush hospital course: per other's notes - "Who is an extremely poor historian but limited information is available from the medical record. 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 She has subsequently developed nausea and vomiting prompting her to seek evaluation emergency room where she is found to have acute on chronic renal failure and referred to the hospital for admission. She is unable to provide additional history. Denying chest pain shortness of breath nausea at this time. She states she was at [facility] for 4 days last week with recent ARF/ gastroenteritis type illness and had been home for 2 days. She did have some restriction of diet and had a CT of the abdomen with contrast for evaluation of a AAA during hospitalization." She remains very difficult to get details regarding her medical history and now reports new diagnosis of cdiff diarrhea last week while at [facility]. She went there for evaluation of her AAA but they decided she was not a candidate for intervention at this time due to its small size but before she could be discharged home she passed out and was admitted to the hospital. she reports that while there she had difficulty urinating, they were doing bladder scans every 6 hrs before finally placing fountain, no etiology ever found. she thinks she was sent home on flagyl but within 24 hrs of getting home she became weaker and couldn't keep her meds down and still having diarrhea. On eval here she is found to have acute renal failure. Review of old records from [facility] confirm c diff colitis; also underwent workup for her renal disease including iPTH, random urine Pr/Cr, etc. It also confirms a COPD exac requiring systemic steroids prolonging her hospital course. vasc surgery evaluated the AAA and decided to monitor only. she was actually constipated and required a rather aggressive bowel regimen to get her moving again. she experienced urine retention and urology evaluated, not clear any etiology ever found but I suspect it was from all the atrovent they were giving her for wheezing/COPD exac. she continues to complain primarily of breathlessness and wheezing with dry, hacking aggravating cough and still very weak and getting weaker, no significant oral intake. she is frightened that she is dying and I suspect she is right. she tolerating the BIPAP better but I think because she fears the alternative and her O2 sat drops into 70's even with supplemental O2 without the BiPAP. Her ABG shows no change with or without the BiPAP and she is clearly failing to progress. review of the record, PFTs in 2016 shows severe disease at that time, unresponsive to bronchodilators with FEV1 only 13%, 0.35L , FEV1/FVC only 23% and severely depressed diffusion capacity only 19%, an independent risk factor for mortality.she denies chest pain, n/v and no diarrhea in last 24 hrs. Daughter had hoped to take her home with her to [place] upon discharge and assume 24/ care at that time. I spoke with pt and explained her failure to improve, even with trials of BiPAP and suggested that she might need to go on mechanical ventilation but to do so would be permanent due to the severe disease in her lungs and require trach and likely vent dependent, a sentiment echoed by dr candelario. She adamantly states her desire to stay off life support and instructed me to change her status to DNR. she fully understands the consequences of this decision asking me to make sure she doesn't suffer when the time comes. Multiple family members have arrived and all parties asking for hospice consult but want us to continue our efforts to keep her alive until her son can arrive on Wednesday. ROS: as above, all systems reviewed, remaining systems negative. Physical Exam Vital Signs: Temp Pulse Resp BP Pulse Ox 98.7 F 78 20 125/77 96 03/01/17 15:59 03/01/17 15:59 03/01/17 16:00 03/01/17 15:59 03/01/17 16:00 Intake & Output 02/28/17 03/01/17 03/02/17 06:59 06:59 06:59 Intake Total 368 1465 Output Total 750 Balance 368 715 Weight 56 kg 56 kg General appearance: PRESENT: no acute emotional distress, well-developed, poorly nourished; broken "spastic" speech pattern with hoarseness Head exam: PRESENT: atraumatic, normocephalic Eye exam: PRESENT: EOMI. ABSENT: conjunctival injection, scleral icterus Mouth exam: PRESENT: moist, neck supple, other - thrush has nearly resolved, shallow ulcer on left tongue remains Neck exam: PRESENT: full ROM. ABSENT: tracheal deviation Respiratory exam: PRESENT: crackles and opening squeaks and tight wheezes bilat L>R with moderate accessory muscle use and very little air movement overall. Cardiovascular exam: PRESENT: RRR. ABSENT: systolic murmur Pulses: PRESENT: normal radial pulses, normal dorsalis pedis pul GI/Abdominal exam: PRESENT: normal bowel sounds, soft. ABSENT: tenderness Extremities exam: PRESENT: +2 edema as before ABSENT: calf tenderness Musculoskeletal exam: PRESENT: normal inspection, other Neurological exam: PRESENT: alert, awake, oriented to person, oriented to place Psychiatric exam: PRESENT: appropriate affect, normal mood Skin exam: ABSENT: dry - moist, warm - cool Results Laboratory Results: 03/01/17 06:48 03/01/17 06:48 02/28/17 02/28/17 03/01/17 11:03 19:50 06:48 WBC 6.6 8.1 RBC 3.44 L 3.74 Hgb 10.3 L D 11.1 L Hct 33.0 L 35.7 L MCV 96 96 MCH 29.9 29.7 MCHC 31.2 L 31.1 L RDW 15.3 H 15.5 H Plt Count 167 164 Seg Neutrophils % 85.5 H 82.8 H Lymphocytes % 5.7 L 7.0 L Monocytes % 7.6 9.3 Eosinophils % 0.9 0.6 Basophils % 0.3 0.3 Absolute Neutrophils 5.6 6.7 Absolute Lymphocytes 0.4 L 0.6 Absolute Monocytes 0.5 0.8 Absolute Eosinophils 0.1 0.0 Absolute Basophils 0.0 0.0 Sodium Potassium Chloride Carbon Dioxide Anion Gap BUN Creatinine Est GFR ( Amer) Est GFR (Non-Af Amer) Glucose Calcium Blood Type B POSITIVE Antibody Screen NEGATIVE 03/01/17 06:48 WBC RBC Hgb Hct MCV MCH MCHC RDW Plt Count Seg Neutrophils % Lymphocytes % Monocytes % Eosinophils % Basophils % Absolute Neutrophils Absolute Lymphocytes Absolute Monocytes Absolute Eosinophils Absolute Basophils Sodium 146.3 H Potassium 4.3 Chloride 113 H Carbon Dioxide 26 Anion Gap 7 BUN 36 H Creatinine 1.39 H Est GFR ( Amer) 46 L Est GFR (Non-Af Amer) 38 L Glucose 76 Calcium 8.8 Blood Type Antibody Screen Impressions: Chest CT 02/27/17 00:00 IMPRESSION: 1. COPD. 2. Small effusions with basilar changes as above. Chest X-Ray 03/01/17 10:19 IMPRESSION: Chronic lung changes with no acute cardiopulmonary disease. Assessment & Plan - Diagnosis (1) COPD (chronic obstructive pulmonary disease) Qualifiers: COPD type: chronic bronchitis Is this a current diagnosis for this admission?: YesPlan: progressive and end stage, unlikely to improve much from where she is right now. continue intermittent BiPAP prn for increase WOB but go no further per her wishes. transfused 2U PRBCs to try and help O2 delivery to the tissues aiming to get her HCT >30 but with little effect. otherwise continue supportive care until her son arrives on Wednesday at which time she desires a change to comfort measures only. (2) C. difficile colitis Is this a current diagnosis for this admission?: YesPlan: recurrent; continue empiric flagyl and lactobacillus for a month (3) Acute renal failure Qualifiers: Acute renal failure type: unspecified Qualified Code(s): N17.9 - Acute kidney failure, unspecified Is this a current diagnosis for this admission?: Yes (4) Anemia Qualifiers: Anemia type: unspecified type Qualified Code(s): D64.9 - Anemia, unspecified Is this a current diagnosis for this admission?: Yes (5) Bronchitis Is this a current diagnosis for this admission?: Yes (6) Essential (primary) hypertension Is this a current diagnosis for this admission?: Yes (7) Lupus Is this a current diagnosis for this admission?: Yes (8) Protein calorie malnutrition Is this a current diagnosis for this admission?: Yes (9) Thrush, oral Is this a current diagnosis for this admission?: Yes (10) Pneumonia Qualifiers: Pneumonia type: due to unspecified organism Laterality: left Lung location: lower lobe of lung Qualified Code(s): J18.1 - Lobar pneumonia, unspecified organism Is this a current diagnosis for this admission?: Yes - Time Time Spent with patient: 35 or more minutes - much of that time spent in consultation with family and dr candelario Medications reviewed and adjusted accordingly: Yes Anticipated discharge: Hospice - Plan Summary Plan Summary: prognosis is grim and not confident she will make it til wednesday.
[2017-03-02] MEDS: BENZONATATE 100 MG CAPSULE PO SCH ×3 (05:01→21:43)
[2017-03-02] MEDS: METRONIDAZOLE 500 MG TABLET PO SCH (05:01)
[2017-03-02] MEDS: HEPARIN SOD (PORCINE) 5,000 UNIT/ML 1 ML SYRINGE SUBCUT SCH ×3 (05:01→21:43)
[2017-03-02] MEDS: ALBUTEROL SULFATE 0.083% NEB 2.5 MG/3 ML AMPUL NEB PRN ×2 (05:21→14:25)
[2017-03-02] MEDS: IPRATROPIUM/ALBUTEROL 0.5-2.5 MG/3 ML AMPUL NEB SCH ×2 (08:51→20:13)
[2017-03-02] MEDS: BUDESONIDE NEB 0.5 MG/2 ML AMPUL NEB SCH ×2 (08:51→20:13)
[2017-03-02] MEDS: DEXAMETHASONE SOD PHOS INJ 10 MG/1 ML VIAL IV SCH ×2 (09:31→21:43)
[2017-03-02] MEDS: METOPROLOL SUCCINATE 50 MG TAB.SR.24H PO SCH (09:34)
[2017-03-02] MEDS: ASPIRIN 81 MG TABLET, CHEWABLE PO SCH (09:34)
[2017-03-02] MEDS: AMLODIPINE BESYLATE 5 MG TABLET PO SCH (09:34)
[2017-03-02] MEDS: LACTOBACILLUS ACIDOPHILUS 250 MG TAB PO SCH ×2 (09:36→17:32)
[2017-03-02] MEDS: DOCUSATE SODIUM 100 MG CAPSULE PO SCH ×2 (09:36→17:32)
--- NOTE | 2017-03-02 15:58 | PDOC PROGRESS REPORT ---
Subjective Progress Note for:: 03/02/17 Subjective:: All, the patient feels that she is stable. She is annoyed by the BiPAP mask. Physical Exam Vital Signs: Temp Pulse Resp BP Pulse Ox 97.7 F 90 23 H 122/85 97 03/02/17 11:52 03/02/17 14:00 03/02/17 12:35 03/02/17 11:52 03/02/17 12:35 Pulse Oximeter Continuous Start: 02/26/17 17: 15 Freq: RTQ4 Status: Active Document 03/02/17 12:35 HCR (Rec: 03/02/17 15:02 HCR [email or web address]) Pulse Oximetry Assessment Oxygen Saturation (92-100) 97 Oxygen Delivery Method Bi-pap Fraction of Inspired Oxygen (FIO2) 35 Equipment Usage Equipment in Use Continuous SpO2 Machine # 14 Intake & Output 03/01/17 03/02/17 03/03/17 06:59 06:59 06:59 Intake Total 1465 246 240 Output Total 750 Balance 715 246 240 Weight 56 kg 56.4 kg Additional comments: Patient is a very frail patient. She appears much older than her stated age. I could understand her through the BiPAP mask. She does not appear to have any cognitive deficits at this time. Her lungs demonstrate anterior wheezing. She does have crackles in the bases bilaterally. Her cardiac exam is regular. The abdomen is soft and flat. Bowel sounds are hypoactive. There is no guarding or rebound and there are no hernias or masses. The extremities are thin and warm to touch. Results Laboratory Results: 03/01/17 06:48 03/01/17 06:48 Impressions: Chest CT 02/27/17 00:00 IMPRESSION: 1. COPD. 2. Small effusions with basilar changes as above. Chest X-Ray 03/01/17 10:19 IMPRESSION: Chronic lung changes with no acute cardiopulmonary disease. Assessment & Plan - Diagnosis (1) Chronic respiratory failure with hypoxia Is this a current diagnosis for this admission?: Yes (2) C. difficile colitis Is this a current diagnosis for this admission?: Yes (3) COPD (chronic obstructive pulmonary disease) Qualifiers: COPD type: chronic bronchitis Is this a current diagnosis for this admission?: Yes - Time Time Spent with patient: 15-24 minutes - Plan Summary Plan Summary: Today, we will continue comfort measures on this patient. I have not made any changes to the patient's care plan today.
[2017-03-03] MEDS: HEPARIN SOD (PORCINE) 5,000 UNIT/ML 1 ML SYRINGE SUBCUT SCH ×3 (06:21→22:56)
[2017-03-03] MEDS: BENZONATATE 100 MG CAPSULE PO SCH ×3 (06:22→22:57)
[2017-03-03] MEDS: IPRATROPIUM/ALBUTEROL 0.5-2.5 MG/3 ML AMPUL NEB SCH ×2 (07:54→19:46)
[2017-03-03] MEDS: BUDESONIDE NEB 0.5 MG/2 ML AMPUL NEB SCH ×2 (07:54→19:46)
[2017-03-03] MEDS: DOCUSATE SODIUM 100 MG CAPSULE PO SCH ×2 (10:21→18:27)
[2017-03-03] MEDS: AMLODIPINE BESYLATE 5 MG TABLET PO SCH (10:21)
[2017-03-03] MEDS: DEXAMETHASONE SOD PHOS INJ 10 MG/1 ML VIAL IV SCH ×2 (10:21→22:56)
[2017-03-03] MEDS: LACTOBACILLUS ACIDOPHILUS 250 MG TAB PO SCH ×2 (10:21→18:27)
[2017-03-03] MEDS: METOPROLOL SUCCINATE 50 MG TAB.SR.24H PO SCH (10:22)
[2017-03-03] MEDS: ASPIRIN 81 MG TABLET, CHEWABLE PO SCH (10:22)
--- NOTE | 2017-03-03 11:45 | PDOC PROGRESS REPORT ---
Subjective Progress Note for:: 03/03/17 Subjective:: Patient is an unfortunate 61-year-old female with end stage COPD. At this point in time she appears to be BiPAP dependent. We have been waiting for her family to arrive. Her son is here now. I plan to speak with him about comfort measures and hospice. Physical Exam Vital Signs: Temp Pulse Resp BP Pulse Ox 97.3 F 95 22 H 131/73 H 100 03/03/17 08:00 03/03/17 08:00 03/03/17 08:00 03/03/17 08:00 03/03/17 11:36 Pulse Oximeter Continuous Start: 02/26/17 17: 15 Freq: RTQ4 Status: Active Document 03/03/17 11:36 LDA (Rec: 03/03/17 11:36 LDA [email or web address]) Pulse Oximetry Assessment Oxygen Saturation (92-100) 100 Oxygen Flow Rate (L/min) 3 Oxygen Delivery Method Nasal Cannula Equipment Usage Equipment in Use Continuous SpO2 Machine # 14 Intake & Output 03/02/17 03/03/17 03/04/17 06:59 06:59 06:59 Intake Total 246 260 Balance 246 260 Weight 56.4 kg 57 kg Additional comments: Patient is an extremely frail 61-year-old black female who looks much older than her stated age. She appeared to be in [id number] distress this morning. She was having pain from the BiPAP mask. She continues to show evidence of tachypnea and accessory muscle use. Her breath sounds are severely diminished bilaterally. Her cardiac exam is regular. Her heart sounds are bounding. I did not appreciate any murmurs. The abdomen is thin and soft. I did not appreciate bowel sounds today. The lower extremities are warm to touch. Patient has 2+ pedal edema only. The skin is otherwise warm, dry and intact. Results Laboratory Results: 03/01/17 06:48 03/01/17 06:48 Impressions: Chest CT 02/27/17 00:00 IMPRESSION: 1. COPD. 2. Small effusions with basilar changes as above. Chest X-Ray 03/01/17 10:19 IMPRESSION: Chronic lung changes with no acute cardiopulmonary disease. Assessment & Plan - Diagnosis (1) Chronic respiratory failure with hypoxia Is this a current diagnosis for this admission?: Yes (2) C. difficile colitis Is this a current diagnosis for this admission?: Yes (3) COPD (chronic obstructive pulmonary disease) Qualifiers: COPD type: chronic bronchitis Is this a current diagnosis for this admission?: Yes - Time Time Spent with patient: 15-24 minutes - Inpatient Certification Medical Necessity: Risk of Complication if Not Cared For in Hospital - This point in time we are continuing noninvasive ventilation until the family can gather and we can make a disposition to hospice. The patient has been declined to go to inpatient hospice in [place]. She is not expected to be able to make the trip. This will be discussed with family and discharge planning today.
--- NOTE | 2017-03-03 13:35 | PDOC PROGRESS REPORT ---
Subjective Progress Note for:: 03/03/17 Subjective:: Lethargic but responsive Physical Exam Vital Signs: Temp Pulse Resp BP Pulse Ox 97.3 F 95 22 H 131/73 H 100 03/03/17 08:00 03/03/17 08:00 03/03/17 08:00 03/03/17 08:00 03/03/17 08:00 Pulse Oximeter Continuous Start: 02/26/17 17: 15 Freq: RTQ4 Status: Active Document 03/03/17 03:40 EAL (Rec: 03/03/17 03:41 EAL [email or web address]) Pulse Oximetry Assessment Oxygen Saturation (92-100) 100 Oxygen Flow Rate (L/min) 3 Oxygen Delivery Method Nasal Cannula Fraction of Inspired Oxygen (FIO2) 32 Equipment Usage Equipment in Use Continuous SpO2 Machine # 14 Intake & Output 03/02/17 03/03/17 03/04/17 06:59 06:59 06:59 Intake Total 246 260 Balance 246 260 Weight 56.4 kg 57 kg General appearance: PRESENT: no acute distress, cooperative, disheveled, thin, well-developed Head exam: PRESENT: atraumatic, normocephalic Eye exam: PRESENT: conjunctiva pale, EOMI Mouth exam: PRESENT: dry mucosa, neck supple, tongue midline Neck exam: ABSENT: carotid bruit, JVD, lymphadenopathy, thyromegaly Respiratory exam: PRESENT: decreased breath sounds, prolonged expiratory phas, rales, rhonchi, symmetrical Cardiovascular exam: PRESENT: RRR, +S1, +S2 GI/Abdominal exam: PRESENT: normal bowel sounds, soft. ABSENT: distended, guarding, mass, organolmegaly, rebound, tenderness Rectal exam: PRESENT: deferred Musculoskeletal exam: PRESENT: normal inspection Neurological exam: PRESENT: awake Skin exam: PRESENT: dry, warm Results Laboratory Results: 03/01/17 06:48 03/01/17 06:48 Impressions: Chest CT 02/27/17 00:00 IMPRESSION: 1. COPD. 2. Small effusions with basilar changes as above. Chest X-Ray 03/01/17 10:19 IMPRESSION: Chronic lung changes with no acute cardiopulmonary disease. Assessment & Plan - Diagnosis (1) Chronic respiratory failure with hypoxia Is this a current diagnosis for this admission?: YesPlan: Have asked RT to replace current mask with a smaller version (2) SLE (systemic lupus erythematosus) Qualifiers: Systemic lupus erythematosus organ involvement: unspecified Is this a current diagnosis for this admission?: Yes (3) Protein calorie malnutrition Is this a current diagnosis for this admission?: YesPlan: Poor p.o. intake continue (4) COPD (chronic obstructive pulmonary disease) Qualifiers: COPD type: chronic bronchitis Is this a current diagnosis for this admission?: YesPlan: PFT 04/14 very severe obtructive disease;air trapping and very severe decrese in diffusion capacity will check current ABG this alone pretends a poor prognosis
[2017-03-04] MEDS: HEPARIN SOD (PORCINE) 5,000 UNIT/ML 1 ML SYRINGE SUBCUT SCH ×3 (05:54→22:40)
[2017-03-04] MEDS: BENZONATATE 100 MG CAPSULE PO SCH ×3 (05:54→22:40)
[2017-03-04] MEDS: BUDESONIDE NEB 0.5 MG/2 ML AMPUL NEB SCH ×2 (07:51→19:41)
[2017-03-04] MEDS: IPRATROPIUM/ALBUTEROL 0.5-2.5 MG/3 ML AMPUL NEB SCH ×2 (07:51→19:41)
[2017-03-04] MEDS: LACTOBACILLUS ACIDOPHILUS 250 MG TAB PO SCH ×2 (11:07→17:54)
[2017-03-04] MEDS: DEXAMETHASONE SOD PHOS INJ 10 MG/1 ML VIAL IV SCH ×2 (11:07→22:40)
[2017-03-04] MEDS: DOCUSATE SODIUM 100 MG CAPSULE PO SCH ×2 (11:08→17:54)
[2017-03-04] MEDS: METOPROLOL SUCCINATE 50 MG TAB.SR.24H PO SCH (11:08)
[2017-03-04] MEDS: AMLODIPINE BESYLATE 5 MG TABLET PO SCH (11:08)
[2017-03-04] MEDS: ASPIRIN 81 MG TABLET, CHEWABLE PO SCH (11:08)
--- NOTE | 2017-03-04 15:51 | PDOC PROGRESS REPORT ---
Subjective Progress Note for:: 03/04/17 Subjective:: Patient is an unfortunate 61-year-old female with end stage COPD. At this point in time she appears to be BiPAP dependent. We have been waiting for her family to arrive. Her son arrived from [place] yesterday. I did have a lengthy conversation with the patient's son and daughter yesterday. The result of the conversation is as follows: The patient decided that she does not want aggressive interventions and wants to be on comfort measures. Both daughters appear to be in agreement with this. The son who came in from [place] yesterday is struggling with this decision. He feels that she may be getting better. I explained that if she does get better it would be for a brief period of time. Again, the patient and her daughters feel that it is in her best interest to pursue hospice. Apparently, additional family members will be coming in tomorrow. They plan on discussing this again with the storage and backup administrator Dr. Robertson at the bedside sometime between 8 and 9 in the morning. A review of the patient's hospital course please see the detailed progress note from Dr. Koenig on 03/01/2017. Physical Exam Vital Signs: Temp Pulse Resp BP Pulse Ox 97.2 F 84 14 135/76 H 98 03/04/17 11:30 03/04/17 14:00 03/04/17 11:30 03/04/17 11:30 03/04/17 11:30 Pulse Oximeter Continuous Start: 02/26/17 17: 15 Freq: RTQ4 Status: Active Document 03/04/17 11:30 CBR (Rec: 03/04/17 12:26 CBR [email or web address]) Pulse Oximetry Assessment Oxygen Saturation (92-100) 98 Oxygen Flow Rate (L/min) 3.5 Oxygen Delivery Method Nasal Cannula Equipment Usage Equipment in Use Continuous SpO2 Machine # N14 Intake & Output 03/03/17 03/04/17 03/05/17 06:59 06:59 06:59 Intake Total 260 320 Balance 260 320 Weight 57 kg 54.4 kg Additional comments: Only a brief physical exam was performed today. When I entered the room the patient was sleeping. She was fairly easy to arouse. She denied pain or discomfort. She is frail. She is tachypneic. She continues to have 2+ pedal edema. Results Laboratory Results: 03/01/17 06:48 03/01/17 06:48 Impressions: Chest CT 02/27/17 00:00 IMPRESSION: 1. COPD. 2. Small effusions with basilar changes as above. Chest X-Ray 03/01/17 10:19 IMPRESSION: Chronic lung changes with no acute cardiopulmonary disease. Assessment & Plan - Diagnosis (1) Chronic respiratory failure with hypoxia Is this a current diagnosis for this admission?: Yes (2) C. difficile colitis Is this a current diagnosis for this admission?: Yes (3) COPD (chronic obstructive pulmonary disease) Qualifiers: COPD type: chronic bronchitis Is this a current diagnosis for this admission?: Yes - Time Time Spent with patient: 15-24 minutes - Inpatient Certification Medical Necessity: Risk of Complication if Not Cared For in Hospital - Plan Summary Plan Summary: While the Patient does have complex comorbidities her primary process is end stage COPD with an FEV1 of 13% predicted. At this time our therapies are primarily for her COPD. She is still receiving her medication for hypertension. She has not been truly made comfort. Hospice has been consulted. They do not feel that she would make the trip to inpatient hospice in [place]. The family is considering taking her home on hospice. I have not ordered any additional imaging tests or labs. A family consultation with our storage and backup administrator is scheduled for tomorrow.
--- NOTE | 2017-03-04 17:32 | PDOC PROGRESS REPORT ---
Subjective Progress Note for:: 03/04/17 Subjective:: Lethargic but responsive Physical Exam Vital Signs: Temp Pulse Resp BP Pulse Ox 97.6 F 84 21 H 144/77 H 98 03/04/17 16:17 03/04/17 16:17 03/04/17 16:17 03/04/17 16:17 03/04/17 16:17 Pulse Oximeter Continuous Start: 02/26/17 17: 15 Freq: RTQ4 Status: Active Document 03/04/17 11:30 CBR (Rec: 03/04/17 12:26 CBR [email or web address]) Pulse Oximetry Assessment Oxygen Saturation (92-100) 98 Oxygen Flow Rate (L/min) 3.5 Oxygen Delivery Method Nasal Cannula Equipment Usage Equipment in Use Continuous SpO2 Machine # N14 Intake & Output 03/03/17 03/04/17 03/05/17 06:59 06:59 06:59 Intake Total 260 320 10 Balance 260 320 10 Weight 57 kg 54.4 kg General appearance: PRESENT: disheveled, mild distress, thin Head exam: PRESENT: atraumatic, normocephalic Eye exam: PRESENT: conjunctiva pale, EOMI Mouth exam: PRESENT: dry mucosa, neck supple Neck exam: ABSENT: carotid bruit, JVD, lymphadenopathy, thyromegaly Respiratory exam: PRESENT: decreased breath sounds, prolonged expiratory phas, symmetrical, unlabored Cardiovascular exam: PRESENT: RRR, +S1, +S2 Pulses: PRESENT: normal radial pulses GI/Abdominal exam: PRESENT: normal bowel sounds, soft. ABSENT: distended, guarding, mass, organolmegaly, rebound, tenderness Rectal exam: PRESENT: deferred Gentrourinary exam: PRESENT: indwelling catheter Musculoskeletal exam: PRESENT: normal inspection Neurological exam: PRESENT: alert, awake Psychiatric exam: PRESENT: normal mood Skin exam: PRESENT: dry, warm Results Laboratory Results: 03/01/17 06:48 03/01/17 06:48 Impressions: Chest CT 02/27/17 00:00 IMPRESSION: 1. COPD. 2. Small effusions with basilar changes as above. Chest X-Ray 03/01/17 10:19 IMPRESSION: Chronic lung changes with no acute cardiopulmonary disease. Assessment & Plan - Diagnosis (1) Chronic respiratory failure with hypoxia Is this a current diagnosis for this admission?: YesPlan: Have asked RT to replace current mask with a smaller version (2) SLE (systemic lupus erythematosus) Qualifiers: Systemic lupus erythematosus organ involvement: unspecified Is this a current diagnosis for this admission?: Yes (3) Protein calorie malnutrition Is this a current diagnosis for this admission?: YesPlan: Poor p.o. intake continue (4) COPD (chronic obstructive pulmonary disease) Qualifiers: COPD type: chronic bronchitis Is this a current diagnosis for this admission?: YesPlan: PFT 04/14 very severe obtructive disease;air trapping and very severe decrese in diffusion capacity will check current ABG this alone pretends a poor prognosis
[2017-03-05] MEDS: HEPARIN SOD (PORCINE) 5,000 UNIT/ML 1 ML SYRINGE SUBCUT SCH ×3 (05:56→22:02)
[2017-03-05] MEDS: BENZONATATE 100 MG CAPSULE PO SCH ×3 (05:56→21:48)
[2017-03-05] MEDS: BUDESONIDE NEB 0.5 MG/2 ML AMPUL NEB SCH ×2 (07:41→19:46)
[2017-03-05] MEDS: IPRATROPIUM/ALBUTEROL 0.5-2.5 MG/3 ML AMPUL NEB SCH ×2 (07:41→19:45)
[2017-03-05] MEDS: LACTOBACILLUS ACIDOPHILUS 250 MG TAB PO SCH ×2 (11:55→19:02)
[2017-03-05] MEDS: ASPIRIN 81 MG TABLET, CHEWABLE PO SCH (11:55)
[2017-03-05] MEDS: METOPROLOL SUCCINATE 50 MG TAB.SR.24H PO SCH (11:55)
[2017-03-05] MEDS: DOCUSATE SODIUM 100 MG CAPSULE PO SCH ×2 (11:56→19:02)
[2017-03-05] MEDS: DEXAMETHASONE SOD PHOS INJ 10 MG/1 ML VIAL IV SCH ×2 (11:56→22:02)
[2017-03-05] MEDS: AMLODIPINE BESYLATE 5 MG TABLET PO SCH (11:56)
--- NOTE | 2017-03-05 14:17 | PDOC PROGRESS REPORT ---
Subjective Progress Note for:: 03/05/17 Physical Exam Vital Signs: Temp Pulse Resp BP Pulse Ox 98.2 F 92 17 151/88 H 98 03/05/17 11:47 03/05/17 11:47 03/05/17 11:47 03/05/17 11:47 03/05/17 12:00 Pulse Oximeter Continuous Start: 02/26/17 17: 15 Freq: RTQ4 Status: Active Document 03/05/17 12:00 [facility] (Rec: 03/05/17 13:02 [facility] [email or web address]) Pulse Oximetry Assessment Oxygen Saturation (92-100) 98 Oxygen Delivery Method AVAP Fraction of Inspired Oxygen (FIO2) 35 Equipment Usage Equipment in Use Continuous SpO2 Machine # 14 Intake & Output 03/04/17 03/05/17 03/06/17 06:59 06:59 06:59 Intake Total 320 970 Balance 320 970 Weight 54.4 kg 52.3 kg Results Laboratory Results: 03/01/17 06:48 03/01/17 06:48 Impressions: Chest CT 02/27/17 00:00 IMPRESSION: 1. COPD. 2. Small effusions with basilar changes as above. Chest X-Ray 03/01/17 10:19 IMPRESSION: Chronic lung changes with no acute cardiopulmonary disease. Assessment & Plan - Diagnosis (1) Chronic respiratory failure with hypoxia Is this a current diagnosis for this admission?: YesPlan: Patient has end-stage COPD. Patient is referred to hospice (2) C. difficile colitis Is this a current diagnosis for this admission?: Yes (3) COPD (chronic obstructive pulmonary disease) Qualifiers: COPD type: chronic bronchitis Is this a current diagnosis for this admission?: YesPlan: continue with nebulizers and BiPAP. (4) Essential (primary) hypertension Is this a current diagnosis for this admission?: Yes - Time Time Spent with patient: 25-34 minutes - Inpatient Certification Medical Necessity: Need Close Monitoring Due to Risk of Patient Decompensation
[2017-03-06] MEDS: BENZONATATE 100 MG CAPSULE PO SCH ×3 (05:38→22:56)
[2017-03-06] MEDS: HEPARIN SOD (PORCINE) 5,000 UNIT/ML 1 ML SYRINGE SUBCUT SCH ×3 (06:11→23:00)
[2017-03-06] MEDS: IPRATROPIUM/ALBUTEROL 0.5-2.5 MG/3 ML AMPUL NEB SCH ×2 (08:20→19:27)
[2017-03-06] MEDS: BUDESONIDE NEB 0.5 MG/2 ML AMPUL NEB SCH ×2 (08:21→19:27)
[2017-03-06] MEDS: DOCUSATE SODIUM 100 MG CAPSULE PO SCH ×2 (12:08→18:49)
[2017-03-06 12:15] LABS: ARTERIAL BLOOD BASE EXCESS -0.1 mmol/L; ARTERIAL BLOOD O2 SATURATION 78.2 % (94-98)
[2017-03-06] MEDS: DEXAMETHASONE SOD PHOS INJ 10 MG/1 ML VIAL IV SCH ×2 (12:21→22:56)
[2017-03-06] MEDS: METOPROLOL SUCCINATE 50 MG TAB.SR.24H PO SCH (12:21)
[2017-03-06] MEDS: ASPIRIN 81 MG TABLET, CHEWABLE PO SCH (12:22)
[2017-03-06] MEDS: AMLODIPINE BESYLATE 5 MG TABLET PO SCH (12:22)
[2017-03-06] MEDS: LACTOBACILLUS ACIDOPHILUS 250 MG TAB PO SCH ×2 (12:22→18:31)
[2017-03-06] MEDS: ALBUTEROL SULFATE 0.083% NEB 2.5 MG/3 ML AMPUL NEB PRN (12:47)
[2017-03-06] MEDS: BUSPIRONE HCL 10 MG TABLET PO SCH ×2 (13:51→18:31)
--- NOTE | 2017-03-06 14:57 | PDOC PROGRESS REPORT ---
Subjective Progress Note for:: 03/06/17 Subjective:: Patient complains of some shortness of breath. She was off of the BiPAP for several hours this morning and tolerated it adequately. Physical Exam Vital Signs: Temp Pulse Resp BP Pulse Ox 98.1 F 104 H 21 H 155/93 H 96 03/06/17 11:46 03/06/17 11:46 03/06/17 14:12 03/06/17 11:46 03/06/17 14:12 Pulse Oximeter Continuous Start: 02/26/17 17: 15 Freq: RTQ4 Status: Active Document 03/06/17 11:06 [facility] (Rec: 03/06/17 11:07 [facility] [email or web address]) Pulse Oximetry Assessment Oxygen Saturation (92-100) 98 Oxygen Flow Rate (L/min) 1 Oxygen Delivery Method Nasal Cannula Equipment Usage Equipment in Use Continuous SpO2 Machine # [id number] Intake & Output 03/05/17 03/06/17 03/07/17 06:59 06:59 06:59 Intake Total 970 480 240 Output Total 250 Balance 970 230 240 Weight 52.3 kg 51.6 kg General appearance: PRESENT: no acute distress Eye exam: PRESENT: conjunctiva pink. ABSENT: scleral icterus Mouth exam: PRESENT: moist, tongue midline Neck exam: ABSENT: JVD Respiratory exam: PRESENT: clear to auscultation amaury. ABSENT: rales, rhonchi, wheezes Cardiovascular exam: PRESENT: RRR. ABSENT: diastolic murmur, rubs, systolic murmur GI/Abdominal exam: PRESENT: normal bowel sounds, soft. ABSENT: distended, guarding, mass, organolmegaly, rebound, tenderness Extremities exam: ABSENT: calf tenderness, clubbing, pedal edema Neurological exam: PRESENT: alert, awake, oriented to person, oriented to place , oriented to time, oriented to situation, CN II-XII grossly intact. ABSENT: motor sensory deficit Psychiatric exam: PRESENT: appropriate affect Skin exam: PRESENT: dry, intact, warm. ABSENT: cyanosis, rash Results Laboratory Results: 03/01/17 06:48 03/01/17 06:48 03/06/17 11:05 Carbonic Acid 1.67 H HCO3/H2CO3 Ratio 16:1 ABG pH 7.30 L ABG pCO2 55.6 H ABG pO2 47.2 L ABG HCO3 26.9 H ABG O2 Saturation 78.2 L ABG Base Excess -0.1 FiO2 ROOM AIR Impressions: Chest CT 02/27/17 00:00 IMPRESSION: 1. COPD. 2. Small effusions with basilar changes as above. Chest X-Ray 03/01/17 10:19 IMPRESSION: Chronic lung changes with no acute cardiopulmonary disease. Assessment & Plan - Diagnosis (1) Chronic respiratory failure with hypoxia Is this a current diagnosis for this admission?: YesPlan: Patient has end-stage COPD. Patient is referred to hospice (2) C. difficile colitis Is this a current diagnosis for this admission?: YesPlan: Has no complaints of diarrhea (3) COPD (chronic obstructive pulmonary disease) Qualifiers: COPD type: chronic bronchitis Is this a current diagnosis for this admission?: YesPlan: continue with nebulizers and BiPAP. (4) Essential (primary) hypertension Is this a current diagnosis for this admission?: Yes - Time Time Spent with patient: 15-24 minutes - Inpatient Certification Medical Necessity: Need Close Monitoring Due to Risk of Patient Decompensation
[2017-03-06 15:39] LABS: ARTERIAL BLOOD BASE EXCESS 2.5 mmol/L; ARTERIAL BLOOD O2 SATURATION 81.6 % (94-98)
[2017-03-07] MEDS: ALBUTEROL SULFATE 0.083% NEB 2.5 MG/3 ML AMPUL NEB PRN ×3 (00:22→13:49)
[2017-03-07] MEDS: BENZONATATE 100 MG CAPSULE PO SCH ×3 (05:35→21:51)
[2017-03-07] MEDS: HEPARIN SOD (PORCINE) 5,000 UNIT/ML 1 ML SYRINGE SUBCUT SCH ×3 (05:35→21:52)
[2017-03-07] MEDS: BUDESONIDE NEB 0.5 MG/2 ML AMPUL NEB SCH ×2 (08:47→19:44)
[2017-03-07] MEDS: IPRATROPIUM/ALBUTEROL 0.5-2.5 MG/3 ML AMPUL NEB SCH ×2 (08:47→19:44)
[2017-03-07] MEDS: BUSPIRONE HCL 10 MG TABLET PO SCH ×3 (09:24→17:42)
[2017-03-07] MEDS: METOPROLOL SUCCINATE 50 MG TAB.SR.24H PO SCH (09:24)
[2017-03-07] MEDS: AMLODIPINE BESYLATE 5 MG TABLET PO SCH (09:24)
[2017-03-07] MEDS: ASPIRIN 81 MG TABLET, CHEWABLE PO SCH (09:24)
[2017-03-07] MEDS: LACTOBACILLUS ACIDOPHILUS 250 MG TAB PO SCH ×2 (09:25→17:42)
[2017-03-07] MEDS: DEXAMETHASONE SOD PHOS INJ 10 MG/1 ML VIAL IV SCH ×2 (09:25→21:51)
[2017-03-07] MEDS: DOCUSATE SODIUM 100 MG CAPSULE PO SCH ×2 (09:26→17:44)
[2017-03-07] MEDS: HALOPERIDOL 2 MG TABLET PO SCH ×2 (10:54→21:51)
--- NOTE | 2017-03-07 11:39 | PDOC PROGRESS REPORT ---
Subjective Progress Note for:: 03/07/17 Subjective:: Patient complains of some shortness of breath. She was off of the BiPAP for several hours this morning and tolerated it adequately. Physical Exam Vital Signs: Temp Pulse Resp BP Pulse Ox 97.9 F 94 18 171/90 H 98 03/07/17 07:35 03/07/17 08:47 03/07/17 08:47 03/07/17 07:35 03/07/17 08:47 Pulse Oximeter Continuous Start: 02/26/17 17: 15 Freq: RTQ4 Status: Active Document 03/07/17 08:47 [facility] (Rec: 03/07/17 09:00 [facility] [email or web address]) Pulse Oximetry Assessment Oxygen Saturation (92-100) 94 Oxygen Delivery Method Bi-pap Fraction of Inspired Oxygen (FIO2) 28 Equipment Usage Equipment in Use Continuous SpO2 Machine # N-[id number] Intake & Output 03/06/17 03/07/17 03/08/17 06:59 06:59 06:59 Intake Total 480 240 120 Output Total 250 Balance 230 240 120 Weight 51.6 kg 50.3 kg General appearance: PRESENT: no acute distress Eye exam: PRESENT: conjunctiva pink. ABSENT: scleral icterus Mouth exam: PRESENT: moist, tongue midline Neck exam: ABSENT: JVD Respiratory exam: PRESENT: clear to auscultation amaury. ABSENT: rales, rhonchi, wheezes Cardiovascular exam: PRESENT: RRR. ABSENT: diastolic murmur, rubs, systolic murmur GI/Abdominal exam: PRESENT: normal bowel sounds, soft. ABSENT: distended, guarding, mass, organolmegaly, rebound, tenderness Extremities exam: ABSENT: calf tenderness, clubbing, pedal edema Neurological exam: PRESENT: alert, awake, oriented to person, oriented to place , oriented to time, oriented to situation, CN II-XII grossly intact. ABSENT: motor sensory deficit Psychiatric exam: PRESENT: anxious Skin exam: PRESENT: dry, intact, warm. ABSENT: cyanosis, rash Results Laboratory Results: 03/01/17 06:48 03/01/17 06:48 03/06/17 03/06/17 11:05 14:07 Carbonic Acid 1.67 H 1.87 H HCO3/H2CO3 Ratio 16:1 16:1 ABG pH 7.30 L 7.30 L ABG pCO2 55.6 H 62.2 H ABG pO2 47.2 L 51.0 L ABG HCO3 26.9 H 30.2 H ABG O2 Saturation 78.2 L 81.6 L ABG Base Excess -0.1 2.5 FiO2 ROOM AIR 1 L Impressions: Chest CT 02/27/17 00:00 IMPRESSION: 1. COPD. 2. Small effusions with basilar changes as above. Chest X-Ray 03/01/17 10:19 IMPRESSION: Chronic lung changes with no acute cardiopulmonary disease. Assessment & Plan - Diagnosis (1) Chronic respiratory failure with hypoxia Is this a current diagnosis for this admission?: YesPlan: Patient has end-stage COPD. Patient is referred to hospice (2) C. difficile colitis Is this a current diagnosis for this admission?: YesPlan: Had worsening diarrhea and a positive C. difficile toxin. Will start oral Flagyl. (3) COPD (chronic obstructive pulmonary disease) Qualifiers: COPD type: chronic bronchitis Is this a current diagnosis for this admission?: YesPlan: continue with nebulizers and BiPAP. (4) Essential (primary) hypertension Is this a current diagnosis for this admission?: Yes - Time Time Spent with patient: 25-34 minutes - Inpatient Certification Medical Necessity: Need For IV Fluids
--- NOTE | 2017-03-07 11:53 | PDOC PROGRESS REPORT ---
Subjective Progress Note for:: 03/05/17 Subjective:: awake,Lethargic but responsive Physical Exam Vital Signs: Temp Pulse Resp BP Pulse Ox 98.2 F 92 17 151/88 H 98 03/05/17 11:47 03/05/17 11:47 03/05/17 11:47 03/05/17 11:47 03/05/17 12:00 Pulse Oximeter Continuous Start: 02/26/17 17: 15 Freq: RTQ4 Status: Active Document 03/05/17 12:00 [facility] (Rec: 03/05/17 13:02 [facility] [email or web address]) Pulse Oximetry Assessment Oxygen Saturation (92-100) 98 Oxygen Delivery Method AVAP Fraction of Inspired Oxygen (FIO2) 35 Equipment Usage Equipment in Use Continuous SpO2 Machine # 14 Intake & Output 03/04/17 03/05/17 03/06/17 06:59 06:59 06:59 Intake Total 320 970 Balance 320 970 Weight 54.4 kg 52.3 kg General appearance: PRESENT: no acute distress, disheveled, thin Head exam: PRESENT: atraumatic, normocephalic Eye exam: PRESENT: conjunctiva pale, EOMI Mouth exam: PRESENT: dry mucosa, neck supple, tongue midline Neck exam: ABSENT: carotid bruit, JVD, lymphadenopathy, thyromegaly Respiratory exam: PRESENT: decreased breath sounds, rhonchi, symmetrical, wheezes Cardiovascular exam: PRESENT: RRR, +S1, +S2 Pulses: PRESENT: normal radial pulses GI/Abdominal exam: PRESENT: ascites Rectal exam: PRESENT: deferred Musculoskeletal exam: PRESENT: normal inspection Neurological exam: PRESENT: awake Skin exam: PRESENT: dry, warm Results Laboratory Results: 03/01/17 06:48 03/01/17 06:48 Impressions: Chest CT 02/27/17 00:00 IMPRESSION: 1. COPD. 2. Small effusions with basilar changes as above. Chest X-Ray 03/01/17 10:19 IMPRESSION: Chronic lung changes with no acute cardiopulmonary disease. Assessment & Plan - Diagnosis (1) Chronic respiratory failure with hypoxia Is this a current diagnosis for this admission?: YesPlan: doing a little better adjusting to mask (2) SLE (systemic lupus erythematosus) Qualifiers: Systemic lupus erythematosus organ involvement: unspecified Is this a current diagnosis for this admission?: Yes (3) Protein calorie malnutrition Is this a current diagnosis for this admission?: YesPlan: Poor p.o. intake continue (4) COPD (chronic obstructive pulmonary disease) Qualifiers: COPD type: chronic bronchitis Is this a current diagnosis for this admission?: YesPlan: end stage requiring NIPPV
--- NOTE | 2017-03-07 11:58 | PDOC PROGRESS REPORT ---
Subjective Progress Note for:: 03/06/17 Subjective:: awake,interactive Physical Exam Vital Signs: Temp Pulse Resp BP Pulse Ox 98.8 F 94 18 158/81 H 98 03/07/17 11:29 03/07/17 11:29 03/07/17 11:29 03/07/17 11:29 03/07/17 11:29 Pulse Oximeter Continuous Start: 02/26/17 17: 15 Freq: RTQ4 Status: Active Document 03/07/17 08:47 [facility] (Rec: 03/07/17 09:00 [facility] [email or web address]) Pulse Oximetry Assessment Oxygen Saturation (92-100) 94 Oxygen Delivery Method Bi-pap Fraction of Inspired Oxygen (FIO2) 28 Equipment Usage Equipment in Use Continuous SpO2 Machine # N-14 Intake & Output 03/06/17 03/07/17 03/08/17 06:59 06:59 06:59 Intake Total 480 240 120 Output Total 250 Balance 230 240 120 Weight 51.6 kg 50.3 kg General appearance: PRESENT: cooperative, disheveled, thin Head exam: PRESENT: atraumatic, normocephalic Eye exam: PRESENT: conjunctiva pale, EOMI Mouth exam: PRESENT: dry mucosa, neck supple, tongue midline Neck exam: ABSENT: carotid bruit, JVD, lymphadenopathy, thyromegaly Respiratory exam: PRESENT: crackles, decreased breath sounds, prolonged expiratory phas, rhonchi, symmetrical Cardiovascular exam: PRESENT: RRR, +S1, +S2 Pulses: PRESENT: normal radial pulses GI/Abdominal exam: PRESENT: normal bowel sounds, soft. ABSENT: distended, guarding, mass, organolmegaly, rebound, tenderness Rectal exam: PRESENT: deferred Gentrourinary exam: PRESENT: indwelling catheter Musculoskeletal exam: PRESENT: normal inspection Neurological exam: PRESENT: awake Skin exam: PRESENT: dry, warm Additional comments: extended time with daughter and other family members in regards to placement, comfort care 70 min Results Laboratory Results: 03/01/17 06:48 03/01/17 06:48 03/06/17 03/06/17 11:05 14:07 Carbonic Acid 1.67 H 1.87 H HCO3/H2CO3 Ratio 16:1 16:1 ABG pH 7.30 L 7.30 L ABG pCO2 55.6 H 62.2 H ABG pO2 47.2 L 51.0 L ABG HCO3 26.9 H 30.2 H ABG O2 Saturation 78.2 L 81.6 L ABG Base Excess -0.1 2.5 FiO2 ROOM AIR 1 L Impressions: Chest CT 02/27/17 00:00 IMPRESSION: 1. COPD. 2. Small effusions with basilar changes as above. Chest X-Ray 03/01/17 10:19 IMPRESSION: Chronic lung changes with no acute cardiopulmonary disease. Assessment & Plan - Diagnosis (1) Chronic respiratory failure with hypoxia Is this a current diagnosis for this admission?: Yes (2) SLE (systemic lupus erythematosus) Qualifiers: Systemic lupus erythematosus organ involvement: unspecified Is this a current diagnosis for this admission?: Yes (3) Protein calorie malnutrition Is this a current diagnosis for this admission?: Yes (4) COPD (chronic obstructive pulmonary disease) Qualifiers: COPD type: chronic bronchitis Is this a current diagnosis for this admission?: Yes
[2017-03-07] MEDS: METRONIDAZOLE 500 MG TABLET PO SCH ×2 (14:10→21:51)
[2017-03-08] MEDS: METRONIDAZOLE 500 MG TABLET PO SCH ×3 (05:30→22:11)
[2017-03-08] MEDS: BENZONATATE 100 MG CAPSULE PO SCH ×3 (05:30→22:11)
[2017-03-08] MEDS: HEPARIN SOD (PORCINE) 5,000 UNIT/ML 1 ML SYRINGE SUBCUT SCH ×3 (05:30→22:02)
[2017-03-08] MEDS: BUDESONIDE NEB 0.5 MG/2 ML AMPUL NEB SCH ×2 (08:02→19:23)
[2017-03-08] MEDS: IPRATROPIUM/ALBUTEROL 0.5-2.5 MG/3 ML AMPUL NEB SCH ×2 (08:03→19:23)
[2017-03-08] MEDS ORDERED: HALOPERIDOL 2 MG TABLET PO SCH (08:37)
[2017-03-08] MEDS: DEXAMETHASONE SOD PHOS INJ 10 MG/1 ML VIAL IV SCH ×2 (10:43→22:12)
[2017-03-08] MEDS: ASPIRIN 81 MG TABLET, CHEWABLE PO SCH (10:43)
[2017-03-08] MEDS: METOPROLOL SUCCINATE 50 MG TAB.SR.24H PO SCH (10:43)
[2017-03-08] MEDS: AMLODIPINE BESYLATE 5 MG TABLET PO SCH (10:43)
[2017-03-08] MEDS: LACTOBACILLUS ACIDOPHILUS 250 MG TAB PO SCH ×2 (10:43→17:25)
[2017-03-08] MEDS: BUSPIRONE HCL 10 MG TABLET PO SCH ×3 (10:44→17:26)
[2017-03-08] MEDS: HALOPERIDOL 5 MG TABLET PO SCH ×2 (10:49→22:11)
[2017-03-08] MEDS: DOCUSATE SODIUM 100 MG CAPSULE PO SCH ×2 (10:53→17:28)
--- NOTE | 2017-03-08 10:56 | PDOC PROGRESS REPORT ---
Subjective Progress Note for:: 03/08/17 Subjective:: Patient complains of some shortness of breath. Complains of feeling anxious. Also complains of diarrhea Physical Exam Vital Signs: Temp Pulse Resp BP Pulse Ox 97.5 F 106 H 24 H 157/92 H 98 03/08/17 07:26 03/08/17 08:00 03/08/17 08:00 03/08/17 07:29 03/08/17 08:00 Pulse Oximeter Continuous Start: 02/26/17 17: 15 Freq: RTQ4 Status: Active Document 03/08/17 08:00 [facility] (Rec: 03/08/17 08:19 [facility] [email or web address]) Pulse Oximetry Assessment Oxygen Saturation (92-100) 98 Oxygen Delivery Method AVAP Fraction of Inspired Oxygen (FIO2) 28 Equipment Usage Equipment in Use Continuous SpO2 Machine # N-14 Intake & Output 03/07/17 03/08/17 03/09/17 06:59 06:59 06:59 Intake Total 240 340 Balance 240 340 Weight 50.3 kg 50.3 kg General appearance: PRESENT: mild distress Eye exam: PRESENT: conjunctiva pink. ABSENT: scleral icterus Mouth exam: PRESENT: moist, tongue midline Neck exam: ABSENT: JVD Respiratory exam: PRESENT: clear to auscultation amaury. ABSENT: rales, rhonchi, wheezes Cardiovascular exam: PRESENT: RRR. ABSENT: diastolic murmur, rubs, systolic murmur GI/Abdominal exam: PRESENT: normal bowel sounds, soft. ABSENT: distended, guarding, mass, organolmegaly, rebound, tenderness Extremities exam: ABSENT: calf tenderness, clubbing, pedal edema Neurological exam: PRESENT: alert, awake, oriented to person, oriented to place , oriented to time, oriented to situation, CN II-XII grossly intact. ABSENT: motor sensory deficit Psychiatric exam: PRESENT: anxious Skin exam: PRESENT: dry, intact, warm. ABSENT: cyanosis, rash Results Laboratory Results: 03/01/17 06:48 03/01/17 06:48 Impressions: Chest CT 02/27/17 00:00 IMPRESSION: 1. COPD. 2. Small effusions with basilar changes as above. Chest X-Ray 03/01/17 10:19 IMPRESSION: Chronic lung changes with no acute cardiopulmonary disease. Assessment & Plan - Diagnosis (1) Chronic respiratory failure with hypoxia Is this a current diagnosis for this admission?: YesPlan: Patient has end-stage COPD. Patient is referred to hospice. Patient becomes very anxious when she does not have her BiPAP on. (2) C. difficile colitis Is this a current diagnosis for this admission?: YesPlan: Continue with oral Flagyl (3) COPD (chronic obstructive pulmonary disease) Qualifiers: COPD type: chronic bronchitis Is this a current diagnosis for this admission?: YesPlan: continue with nebulizers and BiPAP. (4) Essential (primary) hypertension Is this a current diagnosis for this admission?: Yes (5) Anxiety Is this a current diagnosis for this admission?: YesPlan: Increase the Haldol to 5 mg twice daily. Hopefully once her anxiety is under better control she can tolerate being off of the BiPAP. - Time Time Spent with patient: 25-34 minutes - Inpatient Certification Medical Necessity: Need Close Monitoring Due to Risk of Patient Decompensation - Plan Summary Plan Summary: The patient has been referred to hospice.
[2017-03-08] MEDS: ALBUTEROL SULFATE 0.083% NEB 2.5 MG/3 ML AMPUL NEB PRN (14:43)
[2017-03-09] MEDS: ALBUTEROL SULFATE 0.083% NEB 2.5 MG/3 ML AMPUL NEB PRN ×3 (05:15→23:53)
[2017-03-09] MEDS: HEPARIN SOD (PORCINE) 5,000 UNIT/ML 1 ML SYRINGE SUBCUT SCH ×3 (05:56→22:34)
[2017-03-09] MEDS: BENZONATATE 100 MG CAPSULE PO SCH ×3 (05:56→22:34)
[2017-03-09] MEDS: METRONIDAZOLE 500 MG TABLET PO SCH ×3 (05:56→22:34)
[2017-03-09] MEDS: IPRATROPIUM/ALBUTEROL 0.5-2.5 MG/3 ML AMPUL NEB SCH (07:48)
[2017-03-09] MEDS: BUDESONIDE NEB 0.5 MG/2 ML AMPUL NEB SCH ×2 (07:49→19:55)
[2017-03-09] MEDS: DEXAMETHASONE SOD PHOS INJ 10 MG/1 ML VIAL IV SCH (12:10)
[2017-03-09] MEDS: AMLODIPINE BESYLATE 5 MG TABLET PO SCH (12:10)
[2017-03-09] MEDS: ASPIRIN 81 MG TABLET, CHEWABLE PO SCH (12:17)
[2017-03-09] MEDS: LACTOBACILLUS ACIDOPHILUS 250 MG TAB PO SCH ×2 (12:17→17:18)
[2017-03-09] MEDS: BUSPIRONE HCL 10 MG TABLET PO SCH ×3 (12:17→17:21)
[2017-03-09] MEDS: METOPROLOL SUCCINATE 50 MG TAB.SR.24H PO SCH (12:18)
[2017-03-09] MEDS: HALOPERIDOL 5 MG TABLET PO SCH ×2 (12:18→22:35)
[2017-03-09] MEDS: DOCUSATE SODIUM 100 MG CAPSULE PO SCH ×2 (12:20→16:53)
--- NOTE | 2017-03-09 13:56 | PDOC PROGRESS REPORT ---
Subjective Progress Note for:: 03/09/17 Subjective:: Tired but okay Physical Exam Vital Signs: Temp Pulse Resp BP Pulse Ox 97.6 F 82 19 149/74 H 100 03/09/17 11:58 03/09/17 11:58 03/09/17 11:58 03/09/17 11:58 03/09/17 11:58 Pulse Oximeter Continuous Start: 02/26/17 17: 15 Freq: RTQ4 Status: Active Document 03/09/17 07:48 [facility] (Rec: 03/09/17 08:06 [facility] [email or web address]) Pulse Oximetry Assessment Oxygen Saturation (92-100) 100 Oxygen Delivery Method Bi-pap Fraction of Inspired Oxygen (FIO2) 28 Equipment Usage Equipment in Use Continuous SpO2 Machine # [id number]-14 Intake & Output 03/08/17 03/09/17 03/10/17 06:59 06:59 06:59 Intake Total 340 230 Balance 340 230 Weight 50.3 kg 50.3 kg General appearance: PRESENT: no acute distress, cooperative, disheveled, thin Head exam: PRESENT: atraumatic, normocephalic Eye exam: PRESENT: conjunctiva pale, EOMI Mouth exam: PRESENT: dry mucosa, neck supple, tongue midline Neck exam: PRESENT: carotid bruit Respiratory exam: PRESENT: decreased breath sounds, prolonged expiratory phas, rhonchi, wheezes Cardiovascular exam: PRESENT: RRR, +S1, +S2 Pulses: PRESENT: normal radial pulses GI/Abdominal exam: PRESENT: normal bowel sounds, soft. ABSENT: distended, guarding, mass, organolmegaly, rebound, tenderness Rectal exam: PRESENT: deferred Musculoskeletal exam: PRESENT: normal inspection Neurological exam: PRESENT: awake Psychiatric exam: PRESENT: depressed Skin exam: PRESENT: dry, warm Results Laboratory Results: 03/01/17 06:48 03/01/17 06:48 Impressions: Chest CT 02/27/17 00:00 IMPRESSION: 1. COPD. 2. Small effusions with basilar changes as above. Chest X-Ray 03/01/17 10:19 IMPRESSION: Chronic lung changes with no acute cardiopulmonary disease. Assessment & Plan - Diagnosis (1) Chronic respiratory failure with hypoxia Is this a current diagnosis for this admission?: YesPlan: Alternating use of BiPAP and oxygen by nasal cannulas doing well (2) SLE (systemic lupus erythematosus) Qualifiers: Systemic lupus erythematosus organ involvement: unspecified Is this a current diagnosis for this admission?: YesPlan: Continue current therapy;I would not add any immunosuppressive medication at this time (3) Protein calorie malnutrition Is this a current diagnosis for this admission?: Yes (4) COPD (chronic obstructive pulmonary disease) Qualifiers: COPD type: chronic bronchitis Is this a current diagnosis for this admission?: YesPlan: end stage - Plan Summary Plan Summary: Discussed with corporate event planner had written prescription for BiPAP hopefully patient will be placed soon
--- NOTE | 2017-03-09 14:15 | PDOC PROGRESS REPORT ---
Subjective Progress Note for:: 03/09/17 Subjective:: Patient reportedly was critically ill and has been planned for hospice. Course was complicated by Clostridium difficile colitis. Patient continues to have diarrhea. Patient remained on BiPAP. Denies any increasing shortness of breath , nausea vomiting, temperature spikes. Patient able to tolerate room for hours off the BiPAP this time. Denies any chest pain. Family at bedside who no longer considers hospice care. Physical Exam Vital Signs: Temp Pulse Resp BP Pulse Ox 97.6 F 82 19 149/74 H 100 03/09/17 11:58 03/09/17 11:58 03/09/17 11:58 03/09/17 11:58 03/09/17 11:58 Pulse Oximeter Continuous Start: 02/26/17 17: 15 Freq: RTQ4 Status: Active Document 03/09/17 07:48 [facility] (Rec: 03/09/17 08:06 [facility] [email or web address]) Pulse Oximetry Assessment Oxygen Saturation (92-100) 100 Oxygen Delivery Method Bi-pap Fraction of Inspired Oxygen (FIO2) 28 Equipment Usage Equipment in Use Continuous SpO2 Machine # [id number]-14 Intake & Output 03/08/17 03/09/17 03/10/17 06:59 06:59 06:59 Intake Total 340 230 Balance 340 230 Weight 50.3 kg 50.3 kg General appearance: PRESENT: no acute distress, other - on BiPAP Head exam: PRESENT: normocephalic Eye exam: PRESENT: conjunctiva pale Mouth exam: PRESENT: moist, neck supple Neck exam: ABSENT: JVD Respiratory exam: PRESENT: decreased breath sounds - Bilateral, rhonchi - Minimal on the lower lung maher, unlabored, other - On BiPAP. ABSENT: accessory muscle use, wheezes Cardiovascular exam: PRESENT: RRR. ABSENT: gallop GI/Abdominal exam: PRESENT: soft. ABSENT: distended, tenderness Extremities exam: PRESENT: other - Trace lower extremity edema Neurological exam: PRESENT: alert, awake, other - Responds to questions appropriately Skin exam: PRESENT: dry, warm. ABSENT: cyanosis Results Laboratory Results: 03/01/17 06:48 03/01/17 06:48 Impressions: Chest CT 02/27/17 00:00 IMPRESSION: 1. COPD. 2. Small effusions with basilar changes as above. Chest X-Ray 07/03/17 10:19 IMPRESSION: Chronic lung changes with no acute cardiopulmonary disease. Assessment & Plan - Diagnosis (1) Chronic respiratory failure with hypoxia Is this a current diagnosis for this admission?: Yes (2) C. difficile colitis Is this a current diagnosis for this admission?: Yes (3) Acute renal failure Qualifiers: Acute renal failure type: unspecified Qualified Code(s): N17.9 - Acute kidney failure, unspecified Is this a current diagnosis for this admission?: Yes (4) Anemia in CKD (chronic kidney disease) Qualifiers: Chronic kidney disease stage: stage 3 (moderate) Qualified Code(s): N18.3 - Chronic kidney disease, stage 3 (moderate); D63.1 - Anemia in chronic kidney disease Is this a current diagnosis for this admission?: Yes (5) COPD (chronic obstructive pulmonary disease) Qualifiers: COPD type: chronic bronchitis Chronic bronchitis type: unspecified Qualified Code(s): J42 - Unspecified chronic bronchitis Is this a current diagnosis for this admission?: Yes (6) Essential (primary) hypertension Is this a current diagnosis for this admission?: Yes (7) SLE (systemic lupus erythematosus) Qualifiers: Systemic lupus erythematosus type: unspecified Systemic lupus erythematosus organ involvement: unspecified Qualified Code(s): M32.9 - Systemic lupus erythematosus, unspecified Is this a current diagnosis for this admission?: Yes (8) History of stroke Is this a current diagnosis for this admission?: Yes (9) Coronary artery disease Qualifiers: Coronary Disease-Associated Artery/Lesion type: [place] artery [place] vs. transplanted heart: [place] heart Associated angina: without angina Qualified Code(s): I25.10 - Atherosclerotic heart disease of [place] coronary artery without angina pectoris Is this a current diagnosis for this admission?: Yes (10) Abdominal aortic aneurysm Qualifiers: Presence of rupture: without rupture Qualified Code(s): I71.4 - Abdominal aortic aneurysm, without rupture Is this a current diagnosis for this admission?: Yes (11) Hypothyroidism (acquired) Is this a current diagnosis for this admission?: Yes (12) GERD (gastroesophageal reflux disease) Qualifiers: Esophagitis presence: without esophagitis Qualified Code(s): K21.9 - Gastro-esophageal reflux disease without esophagitis Is this a current diagnosis for this admission?: Yes - Time Time Spent with patient: 25-34 minutes - Plan Summary Plan Summary: Transition to oral steroids. Transition to inhaled metered-dose inhaler. Consult life care planner for physical therapy and [facility] facility as well as weaning of the ventilator. Continue lactobacillus and Flagyl. Continue supportive care. Continue to wean BiPAP.
[2017-03-09] MEDS: TIOTROPIUM BROMIDE DPI 5 CAP/KIT (18 MCG/CAP) IH SCH (14:20)
[2017-03-09] MEDS: PREDNISONE 20 MG TABLET PO SCH (17:19)
[2017-03-09] MEDS: IPRATROPIUM/ALBUTEROL 120 PUFF/4 GM MDI IH SCH (17:20)
[2017-03-10] MEDS: IPRATROPIUM/ALBUTEROL 120 PUFF/4 GM MDI IH SCH ×5 (00:28→23:34)
[2017-03-10] MEDS: ALBUTEROL SULFATE 0.083% NEB 2.5 MG/3 ML AMPUL NEB PRN ×4 (04:21→19:47)
[2017-03-10] MEDS: METRONIDAZOLE 500 MG TABLET PO SCH ×3 (06:42→21:11)
[2017-03-10] MEDS: HEPARIN SOD (PORCINE) 5,000 UNIT/ML 1 ML SYRINGE SUBCUT SCH ×3 (06:42→21:11)
[2017-03-10] MEDS: BENZONATATE 100 MG CAPSULE PO SCH ×3 (06:42→21:12)
[2017-03-10 06:56] LABS: HEMATOCRIT 34.9 % (36.0-47.0); HEMOGLOBIN 11.2 g/dL (12.0-15.5); HGB HCT DIFFERENCE -1.3; MEAN CORPUSCULAR HEMOGLOBIN 30.1 pg (27.0-33.4); MEAN CORPUSCULAR HGB CONC 31.9 g/dL (32.0-36.0); MEAN CORPUSCULAR VOLUME 94 fl (80-97); RED CELL DISTRIBUTION WIDTH 13.8 % (11.5-14.0); WHITE BLOOD COUNT 8.8 10^3/uL (4.0-10.5)
[2017-03-10 07:11] LABS: ANION GAP 10 (5-19); BLOOD UREA NITROGEN 59 mg/dL (7-20); CALCIUM 9.4 mg/dL (8.4-10.2); CARBON DIOXIDE 30 mmol/L (22-30); CHLORIDE 105 mmol/L (98-107); CREATININE RESULT 1.19 mg/dL (0.52-1.25); GLUCOSE 121 mg/dL (75-110); POTASSIUM 4.7 mmol/L (3.6-5.0); SODIUM 145.3 mmol/L (137-145)
[2017-03-10] MEDS: BUDESONIDE NEB 0.5 MG/2 ML AMPUL NEB SCH ×2 (07:59→19:47)
[2017-03-10] MEDS: DOCUSATE SODIUM 100 MG CAPSULE PO SCH (10:31)
[2017-03-10] MEDS: AMLODIPINE BESYLATE 5 MG TABLET PO SCH (10:31)
[2017-03-10] MEDS: BUSPIRONE HCL 10 MG TABLET PO SCH ×3 (10:32→17:54)
[2017-03-10] MEDS: METOPROLOL SUCCINATE 50 MG TAB.SR.24H PO SCH (10:32)
[2017-03-10] MEDS: PREDNISONE 20 MG TABLET PO SCH ×2 (10:32→17:54)
[2017-03-10] MEDS: HALOPERIDOL 5 MG TABLET PO SCH ×2 (10:33→21:12)
[2017-03-10] MEDS: LACTOBACILLUS ACIDOPHILUS 250 MG TAB PO SCH ×2 (10:33→17:54)
[2017-03-10] MEDS: ASPIRIN 81 MG TABLET, CHEWABLE PO SCH (10:33)
--- NOTE | 2017-03-10 13:26 | PDOC PROGRESS REPORT ---
Subjective Progress Note for:: 03/10/17 Subjective:: Patient continues to improve slowly. Shortness of breath is better this morning than yesterday. Denies any chills or fever. Diarrhea is still present but less. No reported temperature spikes, nausea or vomiting, nor any pain or discomfort at this time. Physical Exam Vital Signs: Temp Pulse Resp BP Pulse Ox 97.8 F 85 18 145/90 H 100 03/10/17 12:25 03/10/17 12:25 03/10/17 12:25 03/10/17 12:25 03/10/17 12:25 Pulse Oximeter Continuous Start: 02/26/17 17: 15 Freq: RTQ4 Status: Active Document 03/10/17 11:16 [facility] (Rec: 03/10/17 11:17 [facility] [email or web address]) Pulse Oximetry Assessment Oxygen Saturation (92-100) 98 Oxygen Delivery Method AVAP Fraction of Inspired Oxygen (FIO2) 28 Equipment Usage Equipment in Use Continuous SpO2 Machine # 14 Intake & Output 03/09/17 03/10/17 03/11/17 06:59 06:59 06:59 Intake Total 230 270 Balance 230 270 Weight 50.3 kg 50.3 kg General appearance: PRESENT: no acute distress, cooperative, thin Head exam: PRESENT: normocephalic Eye exam: PRESENT: EOMI Mouth exam: PRESENT: moist, neck supple Neck exam: ABSENT: JVD Respiratory exam: PRESENT: rhonchi - Minimal bilateral Cardiovascular exam: PRESENT: RRR. ABSENT: gallop GI/Abdominal exam: PRESENT: hypoactive bowel sounds, soft. ABSENT: distended Extremities exam: ABSENT: pedal edema - Yesterday is already he Neurological exam: PRESENT: alert, awake, oriented to situation Skin exam: PRESENT: dry - wall. 1. Urine, warm - Today and. ABSENT: cyanosis Results Laboratory Results: 03/10/17 06:48 03/10/17 06:48 03/10/17 03/10/17 06:48 06:48 WBC 8.8 RBC 3.70 L Hgb 11.2 L Hct 34.9 L MCV 94 MCH 30.1 MCHC 31.9 L RDW 13.8 Plt Count 164 Sodium 145.3 H Potassium 4.7 Chloride 105 Carbon Dioxide 30 Anion Gap 10 BUN 59 H Creatinine 1.19 Est GFR ( Amer) 56 L Est GFR (Non-Af Amer) 46 L Glucose 121 H Calcium 9.4 Impressions: Chest CT 02/27/17 00:00 IMPRESSION: 1. COPD. 2. Small effusions with basilar changes as above. Chest X-Ray 03/01/17 10:19 IMPRESSION: Chronic lung changes with no acute cardiopulmonary disease. Assessment & Plan - Diagnosis (1) Chronic respiratory failure with hypoxia Is this a current diagnosis for this admission?: Yes (2) C. difficile colitis Is this a current diagnosis for this admission?: Yes (3) Acute renal failure Qualifiers: Acute renal failure type: unspecified Qualified Code(s): N17.9 - Acute kidney failure, unspecified Is this a current diagnosis for this admission?: Yes (4) Anemia in CKD (chronic kidney disease) Qualifiers: Chronic kidney disease stage: stage 3 (moderate) Qualified Code(s): N18.3 - Chronic kidney disease, stage 3 (moderate); D63.1 - Anemia in chronic kidney disease Is this a current diagnosis for this admission?: Yes (5) COPD (chronic obstructive pulmonary disease) Qualifiers: COPD type: chronic bronchitis Chronic bronchitis type: unspecified Qualified Code(s): J42 - Unspecified chronic bronchitis Is this a current diagnosis for this admission?: Yes (6) Essential (primary) hypertension Is this a current diagnosis for this admission?: Yes (7) SLE (systemic lupus erythematosus) Qualifiers: Systemic lupus erythematosus type: unspecified Systemic lupus erythematosus organ involvement: unspecified Qualified Code(s): M32.9 - Systemic lupus erythematosus, unspecified Is this a current diagnosis for this admission?: Yes (8) History of stroke Is this a current diagnosis for this admission?: Yes (9) Coronary artery disease Qualifiers: Coronary Disease-Associated Artery/Lesion type: [place] artery [place] vs. transplanted heart: [place] heart Associated angina: without angina Qualified Code(s): I25.10 - Atherosclerotic heart disease of [place] coronary artery without angina pectoris Is this a current diagnosis for this admission?: Yes (10) Abdominal aortic aneurysm Qualifiers: Presence of rupture: without rupture Qualified Code(s): I71.4 - Abdominal aortic aneurysm, without rupture Is this a current diagnosis for this admission?: Yes (11) Hypothyroidism (acquired) Is this a current diagnosis for this admission?: Yes (12) GERD (gastroesophageal reflux disease) Qualifiers: Esophagitis presence: without esophagitis Qualified Code(s): K21.9 - Gastro-esophageal reflux disease without esophagitis Is this a current diagnosis for this admission?: Yes - Time Time Spent with patient: 15-24 minutes - Plan Summary Plan Summary: We will discontinue Megace at this time. Continue prednisone. Continue physical therapy. Discontinue Colace as well. Continue antibiotics. Continue supportive care. Awaiting rehabilitation bed, and BiPAP.
--- NOTE | 2017-03-10 18:56 | PDOC PROGRESS REPORT ---
Subjective Progress Note for:: 03/10/17 Subjective:: Awake less lethargic very interactive Physical Exam Vital Signs: Temp Pulse Resp BP Pulse Ox 97.8 F 81 24 H 151/89 H 96 03/10/17 16:00 03/10/17 16:00 03/10/17 16:00 03/10/17 16:00 03/10/17 16:11 Pulse Oximeter Continuous Start: 02/26/17 17: 15 Freq: RTQ4 Status: Active Document 03/10/17 16:11 [facility] (Rec: 03/10/17 16:12 [facility] [email or web address]) Pulse Oximetry Assessment Oxygen Saturation (92-100) 96 Oxygen Delivery Method AVAP Equipment Usage Equipment in Use Continuous SpO2 Machine # 14 Additional RT Notes Other PT MAINTAINING OFF BIPAP. Intake & Output 03/09/17 03/10/17 03/11/17 06:59 06:59 06:59 Intake Total 230 270 610 Balance 230 270 610 Weight 50.3 kg 50.3 kg General appearance: PRESENT: no acute distress, cooperative, disheveled, thin, well-developed Head exam: PRESENT: atraumatic, normocephalic Eye exam: PRESENT: conjunctiva pale, EOMI Mouth exam: PRESENT: dry mucosa, neck supple, tongue midline Neck exam: ABSENT: carotid bruit, JVD, lymphadenopathy, thyromegaly Respiratory exam: PRESENT: decreased breath sounds, prolonged expiratory phas, rales, rhonchi, symmetrical Cardiovascular exam: PRESENT: RRR, +S1, +S2 Pulses: PRESENT: normal radial pulses GI/Abdominal exam: PRESENT: normal bowel sounds, soft. ABSENT: distended, guarding, mass, organolmegaly, rebound, tenderness Rectal exam: PRESENT: deferred Gentrourinary exam: PRESENT: indwelling catheter Musculoskeletal exam: PRESENT: normal inspection Neurological exam: PRESENT: alert, awake Psychiatric exam: PRESENT: normal mood Skin exam: PRESENT: dry, warm Results Laboratory Results: 03/10/17 06:48 03/10/17 06:48 03/10/17 03/10/17 06:48 06:48 WBC 8.8 RBC 3.70 L Hgb 11.2 L Hct 34.9 L MCV 94 MCH 30.1 MCHC 31.9 L RDW 13.8 Plt Count 164 Sodium 145.3 H Potassium 4.7 Chloride 105 Carbon Dioxide 30 Anion Gap 10 BUN 59 H Creatinine 1.19 Est GFR ( Amer) 56 L Est GFR (Non-Af Amer) 46 L Glucose 121 H Calcium 9.4 Impressions: Chest CT 02/27/17 00:00 IMPRESSION: 1. COPD. 2. Small effusions with basilar changes as above. Chest X-Ray 03/01/17 10:19 IMPRESSION: Chronic lung changes with no acute cardiopulmonary disease. Assessment & Plan - Diagnosis (1) Chronic respiratory failure with hypoxia Is this a current diagnosis for this admission?: YesPlan: oxygen by nasal cannula only doing well (2) SLE (systemic lupus erythematosus) Qualifiers: Systemic lupus erythematosus type: unspecified Systemic lupus erythematosus organ involvement: unspecified Qualified Code(s): M32.9 - Systemic lupus erythematosus, unspecified Is this a current diagnosis for this admission?: YesPlan: Continue current therapy;I would not add any immunosuppressive medication at this time (3) Protein calorie malnutrition Is this a current diagnosis for this admission?: Yes (4) COPD (chronic obstructive pulmonary disease) Qualifiers: COPD type: chronic bronchitis Chronic bronchitis type: unspecified Qualified Code(s): J42 - Unspecified chronic bronchitis Is this a current diagnosis for this admission?: Yes
[2017-03-11] MEDS: METRONIDAZOLE 500 MG TABLET PO SCH ×3 (05:41→21:34)
[2017-03-11] MEDS: BENZONATATE 100 MG CAPSULE PO SCH ×3 (05:41→21:35)
[2017-03-11] MEDS: IPRATROPIUM/ALBUTEROL 120 PUFF/4 GM MDI IH SCH ×3 (05:42→21:36)
[2017-03-11] MEDS: HEPARIN SOD (PORCINE) 5,000 UNIT/ML 1 ML SYRINGE SUBCUT SCH ×3 (05:42→21:34)
[2017-03-11] MEDS: BUDESONIDE NEB 0.5 MG/2 ML AMPUL NEB SCH ×2 (07:39→19:47)
[2017-03-11] MEDS: ALBUTEROL SULFATE 0.083% NEB 2.5 MG/3 ML AMPUL NEB PRN ×2 (07:39→16:57)
[2017-03-11] MEDS: PREDNISONE 20 MG TABLET PO SCH ×2 (11:33→21:35)
[2017-03-11] MEDS: LACTOBACILLUS ACIDOPHILUS 250 MG TAB PO SCH ×2 (11:34→21:35)
[2017-03-11] MEDS: AMLODIPINE BESYLATE 5 MG TABLET PO SCH (11:34)
[2017-03-11] MEDS: BUSPIRONE HCL 10 MG TABLET PO SCH ×3 (11:35→21:34)
[2017-03-11] MEDS: ASPIRIN 81 MG TABLET, CHEWABLE PO SCH (11:35)
[2017-03-11] MEDS: METOPROLOL SUCCINATE 50 MG TAB.SR.24H PO SCH (11:35)
[2017-03-11] MEDS: HALOPERIDOL 5 MG TABLET PO SCH ×2 (11:35→21:36)
[2017-03-11] MEDS: TIOTROPIUM BROMIDE DPI 5 CAP/KIT (18 MCG/CAP) IH SCH (11:36)
--- NOTE | 2017-03-11 14:01 | PDOC PROGRESS REPORT ---
Subjective Progress Note for:: 03/11/17 Subjective:: Continues to improve slowly. Able to tolerate off BIPAP for longer period of time. Physical Exam Vital Signs: Temp Pulse Resp BP Pulse Ox 97.1 F 87 16 150/83 H 100 03/11/17 11:42 03/11/17 11:42 03/11/17 11:42 03/11/17 11:42 03/11/17 12:34 Pulse Oximeter Continuous Start: 02/26/17 17: 15 Freq: RTQ4 Status: Active Document 03/11/17 12:34 [facility] (Rec: 03/11/17 12:34 [facility] [email or web address]) Pulse Oximetry Assessment Oxygen Saturation (92-100) 100 Oxygen Flow Rate (L/min) 2 Oxygen Delivery Method Nasal Cannula Equipment Usage Equipment in Use Continuous SpO2 Machine # [id number] Intake & Output 03/10/17 03/11/17 03/12/17 06:59 06:59 06:59 Intake Total 270 610 Balance 270 610 Weight 50.3 kg 50.5 kg General appearance: PRESENT: no acute distress, cooperative Head exam: PRESENT: normocephalic Eye exam: PRESENT: EOMI Mouth exam: PRESENT: moist, neck supple Neck exam: ABSENT: JVD Respiratory exam: PRESENT: decreased breath sounds, rhonchi - few B/L. ABSENT: wheezes Cardiovascular exam: PRESENT: RRR. ABSENT: gallop GI/Abdominal exam: PRESENT: soft. ABSENT: tenderness Extremities exam: PRESENT: pedal edema Neurological exam: PRESENT: alert, awake, oriented to situation Skin exam: PRESENT: dry, warm. ABSENT: cyanosis Results Laboratory Results: 03/10/17 06:48 03/10/17 06:48 Impressions: Chest CT 02/27/17 00:00 IMPRESSION: 1. COPD. 2. Small effusions with basilar changes as above. Chest X-Ray 03/01/17 10:19 IMPRESSION: Chronic lung changes with no acute cardiopulmonary disease. Assessment & Plan - Diagnosis (1) Chronic respiratory failure with hypoxia Is this a current diagnosis for this admission?: Yes (2) C. difficile colitis Is this a current diagnosis for this admission?: Yes (3) Acute renal failure Qualifiers: Acute renal failure type: unspecified Qualified Code(s): N17.9 - Acute kidney failure, unspecified Is this a current diagnosis for this admission?: Yes (4) Anemia in CKD (chronic kidney disease) Qualifiers: Chronic kidney disease stage: stage 3 (moderate) Qualified Code(s): N18.3 - Chronic kidney disease, stage 3 (moderate); D63.1 - Anemia in chronic kidney disease Is this a current diagnosis for this admission?: Yes (5) COPD (chronic obstructive pulmonary disease) Qualifiers: COPD type: chronic bronchitis Chronic bronchitis type: unspecified Qualified Code(s): J42 - Unspecified chronic bronchitis Is this a current diagnosis for this admission?: Yes (6) Essential (primary) hypertension Is this a current diagnosis for this admission?: Yes (7) SLE (systemic lupus erythematosus) Qualifiers: Systemic lupus erythematosus type: unspecified Systemic lupus erythematosus organ involvement: unspecified Qualified Code(s): M32.9 - Systemic lupus erythematosus, unspecified Is this a current diagnosis for this admission?: Yes (8) History of stroke Is this a current diagnosis for this admission?: Yes (9) Coronary artery disease Qualifiers: Coronary Disease-Associated Artery/Lesion type: [place] artery [place] vs. transplanted heart: [place] heart Associated angina: without angina Qualified Code(s): I25.10 - Atherosclerotic heart disease of [place] coronary artery without angina pectoris Is this a current diagnosis for this admission?: Yes (10) Abdominal aortic aneurysm Qualifiers: Presence of rupture: without rupture Qualified Code(s): I71.4 - Abdominal aortic aneurysm, without rupture Is this a current diagnosis for this admission?: Yes (11) Hypothyroidism (acquired) Is this a current diagnosis for this admission?: Yes (12) GERD (gastroesophageal reflux disease) Qualifiers: Esophagitis presence: without esophagitis Qualified Code(s): K21.9 - Gastro-esophageal reflux disease without esophagitis Is this a current diagnosis for this admission?: Yes - Time Time Spent with patient: 25-34 minutes - Plan Summary Plan Summary: Begin Tessalon pearles. Humidify oxygen. Continue other medications and supportive care. Continue physical therapy. Awaiting rehabilitation placement.
[2017-03-12] MEDS: IPRATROPIUM/ALBUTEROL 120 PUFF/4 GM MDI IH SCH ×5 (00:12→23:08)
[2017-03-12] MEDS: HEPARIN SOD (PORCINE) 5,000 UNIT/ML 1 ML SYRINGE SUBCUT SCH ×2 (05:25→15:49)
[2017-03-12] MEDS: METRONIDAZOLE 500 MG TABLET PO SCH ×3 (05:25→22:51)
[2017-03-12] MEDS: BENZONATATE 100 MG CAPSULE PO SCH ×3 (05:25→22:51)
[2017-03-12] MEDS: BUDESONIDE NEB 0.5 MG/2 ML AMPUL NEB SCH ×2 (08:01→20:13)
[2017-03-12] MEDS: ALBUTEROL SULFATE 0.083% NEB 2.5 MG/3 ML AMPUL NEB PRN ×2 (08:01→14:31)
--- NOTE | 2017-03-12 11:45 | PDOC PROGRESS REPORT ---
Subjective Progress Note for:: 03/12/17 Subjective:: Patient is more awake and alert. Complains of being weak all over. Patient reports no increasing shortness of breath. No pain or discomfort at this time. Diarrhea seems to be improving. Patient reports that she has not worn the BiPAP recently. Physical Exam Vital Signs: Temp Pulse Resp BP Pulse Ox 98.0 F 72 20 133/83 H 100 03/11/17 20:50 03/12/17 08:01 03/12/17 08:01 03/12/17 05:26 03/12/17 11:17 Pulse Oximeter Continuous Start: 02/26/17 17: 15 Freq: RTQ4 Status: Active Document 03/12/17 11:17 [facility] (Rec: 03/12/17 11:18 LDA [email or web address]) Pulse Oximetry Assessment Oxygen Saturation (92-100) 100 Oxygen Flow Rate (L/min) 2 Oxygen Delivery Method Nasal Cannula Equipment Usage Equipment in Use Continuous SpO2 Machine # 14 Intake & Output 03/11/17 03/12/17 03/13/17 06:59 06:59 06:59 Intake Total 610 560 Output Total 300 Balance 610 260 Weight 50.5 kg 50.1 kg General appearance: PRESENT: no acute distress, thin Head exam: PRESENT: normocephalic Eye exam: PRESENT: EOMI Mouth exam: PRESENT: moist, neck supple Neck exam: ABSENT: JVD Respiratory exam: PRESENT: decreased breath sounds - Bilateral, rhonchi - Minimal Cardiovascular exam: PRESENT: RRR GI/Abdominal exam: PRESENT: hypoactive bowel sounds, soft. ABSENT: distended, tenderness Extremities exam: ABSENT: pedal edema Neurological exam: PRESENT: alert, awake, oriented to situation Skin exam: PRESENT: dry, warm. ABSENT: cyanosis Results Laboratory Results: 03/10/17 06:48 03/10/17 06:48 Impressions: Chest CT 02/27/17 00:00 IMPRESSION: 1. COPD. 2. Small effusions with basilar changes as above. Chest X-Ray 03/01/17 10:19 IMPRESSION: Chronic lung changes with no acute cardiopulmonary disease. Assessment & Plan - Diagnosis (1) Chronic respiratory failure with hypoxia Is this a current diagnosis for this admission?: Yes (2) C. difficile colitis Is this a current diagnosis for this admission?: Yes (3) Acute renal failure Qualifiers: Acute renal failure type: unspecified Qualified Code(s): N17.9 - Acute kidney failure, unspecified Is this a current diagnosis for this admission?: Yes (4) Anemia in CKD (chronic kidney disease) Qualifiers: Chronic kidney disease stage: stage 3 (moderate) Qualified Code(s): N18.3 - Chronic kidney disease, stage 3 (moderate); D63.1 - Anemia in chronic kidney disease Is this a current diagnosis for this admission?: Yes (5) COPD (chronic obstructive pulmonary disease) Qualifiers: COPD type: chronic bronchitis Chronic bronchitis type: unspecified Qualified Code(s): J42 - Unspecified chronic bronchitis Is this a current diagnosis for this admission?: Yes (6) Essential (primary) hypertension Is this a current diagnosis for this admission?: Yes (7) SLE (systemic lupus erythematosus) Qualifiers: Systemic lupus erythematosus type: unspecified Systemic lupus erythematosus organ involvement: unspecified Qualified Code(s): M32.9 - Systemic lupus erythematosus, unspecified Is this a current diagnosis for this admission?: Yes (8) History of stroke Is this a current diagnosis for this admission?: Yes (9) Coronary artery disease Qualifiers: Coronary Disease-Associated Artery/Lesion type: [place] artery [place] vs. transplanted heart: [place] heart Associated angina: without angina Qualified Code(s): I25.10 - Atherosclerotic heart disease of [place] coronary artery without angina pectoris Is this a current diagnosis for this admission?: Yes (10) Abdominal aortic aneurysm Qualifiers: Presence of rupture: without rupture Qualified Code(s): I71.4 - Abdominal aortic aneurysm, without rupture Is this a current diagnosis for this admission?: Yes (11) Hypothyroidism (acquired) Is this a current diagnosis for this admission?: Yes (12) GERD (gastroesophageal reflux disease) Qualifiers: Esophagitis presence: without esophagitis Qualified Code(s): K21.9 - Gastro-esophageal reflux disease without esophagitis Is this a current diagnosis for this admission?: Yes - Time Time Spent with patient: 25-34 minutes - Plan Summary Plan Summary: Continue high-dose steroids. Seems to be helping her. In the meantime we will stop BuSpar and Haldol see how she does. Continue physical therapy. Continue other medications and supportive care.
[2017-03-12] MEDS: AMLODIPINE BESYLATE 5 MG TABLET PO SCH (12:34)
[2017-03-12] MEDS: METOPROLOL SUCCINATE 50 MG TAB.SR.24H PO SCH (12:39)
[2017-03-12] MEDS: LACTOBACILLUS ACIDOPHILUS 250 MG TAB PO SCH ×2 (12:39→17:35)
[2017-03-12] MEDS: PREDNISONE 20 MG TABLET PO SCH ×2 (12:39→17:35)
[2017-03-12] MEDS: ASPIRIN 81 MG TABLET, CHEWABLE PO SCH (12:39)
[2017-03-12] MEDS: TIOTROPIUM BROMIDE DPI 5 CAP/KIT (18 MCG/CAP) IH SCH (12:40)
--- NOTE | 2017-03-12 20:52 | PDOC PROGRESS REPORT ---
Subjective Progress Note for:: 03/11/17 Subjective:: Awake less lethargic very interactive Physical Exam Vital Signs: Temp Pulse Resp BP Pulse Ox 98.0 F 77 14 153/88 H 94 03/11/17 20:50 03/12/17 15:47 03/12/17 15:47 03/12/17 15:47 03/12/17 15:47 Pulse Oximeter Continuous Start: 02/26/17 17: 15 Freq: RTQ4 Status: Active Document 03/12/17 15:39 L[facility] (Rec: 03/12/17 15:40 LDA [email or web address]) Pulse Oximetry Assessment Oxygen Saturation (92-100) 100 Oxygen Flow Rate (L/min) 2 Oxygen Delivery Method Nasal Cannula Equipment Usage Equipment in Use Continuous SpO2 Machine # 14 Intake & Output 03/11/17 03/12/17 03/13/17 06:59 06:59 06:59 Intake Total 610 560 270 Output Total 300 Balance 610 260 270 Weight 50.5 kg 50.1 kg General appearance: PRESENT: no acute distress, disheveled, thin Head exam: PRESENT: atraumatic, normocephalic Eye exam: PRESENT: conjunctiva pale, EOMI Mouth exam: PRESENT: dry mucosa, tongue midline Neck exam: PRESENT: carotid bruit Respiratory exam: PRESENT: decreased breath sounds, prolonged expiratory phas, rhonchi, symmetrical, unlabored Cardiovascular exam: PRESENT: RRR, +S1, +S2 Pulses: PRESENT: normal radial pulses GI/Abdominal exam: PRESENT: normal bowel sounds, soft. ABSENT: distended, guarding, mass, organolmegaly, rebound, tenderness Rectal exam: PRESENT: deferred Musculoskeletal exam: PRESENT: normal inspection Neurological exam: PRESENT: awake Skin exam: PRESENT: dry, warm Results Laboratory Results: 03/10/17 06:48 03/10/17 06:48 Impressions: Chest CT 02/27/17 00:00 IMPRESSION: 1. COPD. 2. Small effusions with basilar changes as above. Chest X-Ray 03/01/17 10:19 IMPRESSION: Chronic lung changes with no acute cardiopulmonary disease. Assessment & Plan - Diagnosis (1) Chronic respiratory failure with hypoxia Is this a current diagnosis for this admission?: Yes (2) SLE (systemic lupus erythematosus) Qualifiers: Systemic lupus erythematosus type: unspecified Systemic lupus erythematosus organ involvement: unspecified Qualified Code(s): M32.9 - Systemic lupus erythematosus, unspecified Is this a current diagnosis for this admission?: Yes (3) Protein calorie malnutrition Is this a current diagnosis for this admission?: Yes (4) COPD (chronic obstructive pulmonary disease) Qualifiers: COPD type: chronic bronchitis Chronic bronchitis type: unspecified Qualified Code(s): J42 - Unspecified chronic bronchitis Is this a current diagnosis for this admission?: Yes
--- NOTE | 2017-03-12 20:55 | PDOC PROGRESS REPORT ---
Subjective Progress Note for:: 03/12/17 Subjective:: Awake very interactive Physical Exam Vital Signs: Temp Pulse Resp BP Pulse Ox 98.0 F 77 14 153/88 H 94 03/11/17 20:50 03/12/17 15:47 03/12/17 15:47 03/12/17 15:47 03/12/17 15:47 Pulse Oximeter Continuous Start: 02/26/17 17: 15 Freq: RTQ4 Status: Active Document 03/12/17 15:39 LDA (Rec: 03/12/17 15:40 LDA [email or web address]) Pulse Oximetry Assessment Oxygen Saturation (92-100) 100 Oxygen Flow Rate (L/min) 2 Oxygen Delivery Method Nasal Cannula Equipment Usage Equipment in Use Continuous SpO2 Machine # 14 Intake & Output 03/11/17 03/12/17 03/13/17 06:59 06:59 06:59 Intake Total 610 560 270 Output Total 300 Balance 610 260 270 Weight 50.5 kg 50.1 kg General appearance: PRESENT: no acute distress, disheveled, thin, well-developed Head exam: PRESENT: atraumatic, normocephalic Eye exam: PRESENT: conjunctiva pale, EOMI Mouth exam: PRESENT: dry mucosa, neck supple Neck exam: ABSENT: carotid bruit, JVD, lymphadenopathy, thyromegaly Respiratory exam: PRESENT: decreased breath sounds, prolonged expiratory phas, rales, rhonchi, unlabored Cardiovascular exam: PRESENT: RRR, +S1, +S2 Pulses: PRESENT: normal radial pulses GI/Abdominal exam: PRESENT: normal bowel sounds, soft. ABSENT: distended, guarding, mass, organolmegaly, rebound, tenderness Musculoskeletal exam: PRESENT: normal inspection Neurological exam: PRESENT: awake Skin exam: PRESENT: dry, warm Results Laboratory Results: 03/10/17 06:48 03/10/17 06:48 Impressions: Chest CT 02/27/17 00:00 IMPRESSION: 1. COPD. 2. Small effusions with basilar changes as above. Chest X-Ray 03/01/17 10:19 IMPRESSION: Chronic lung changes with no acute cardiopulmonary disease. Assessment & Plan - Diagnosis (1) Chronic respiratory failure with hypoxia Is this a current diagnosis for this admission?: Yes (2) SLE (systemic lupus erythematosus) Qualifiers: Systemic lupus erythematosus type: unspecified Systemic lupus erythematosus organ involvement: unspecified Qualified Code(s): M32.9 - Systemic lupus erythematosus, unspecified Is this a current diagnosis for this admission?: Yes (3) Protein calorie malnutrition Is this a current diagnosis for this admission?: Yes (4) COPD (chronic obstructive pulmonary disease) Qualifiers: COPD type: chronic bronchitis Chronic bronchitis type: unspecified Qualified Code(s): J42 - Unspecified chronic bronchitis Is this a current diagnosis for this admission?: Yes
[2017-03-13] MEDS: IPRATROPIUM/ALBUTEROL 120 PUFF/4 GM MDI IH SCH ×4 (05:45→23:16)
[2017-03-13] MEDS: METRONIDAZOLE 500 MG TABLET PO SCH ×3 (05:45→22:24)
[2017-03-13] MEDS: HEPARIN SOD (PORCINE) 5,000 UNIT/ML 1 ML SYRINGE SUBCUT SCH ×3 (05:45→22:24)
[2017-03-13] MEDS: BENZONATATE 100 MG CAPSULE PO SCH ×3 (05:45→22:24)
[2017-03-13] MEDS: BUDESONIDE NEB 0.5 MG/2 ML AMPUL NEB SCH ×2 (08:20→19:48)
[2017-03-13] MEDS: ALBUTEROL SULFATE 0.083% NEB 2.5 MG/3 ML AMPUL NEB PRN ×3 (08:20→19:48)
[2017-03-13] MEDS: METOPROLOL SUCCINATE 50 MG TAB.SR.24H PO SCH (10:59)
[2017-03-13] MEDS: AMLODIPINE BESYLATE 5 MG TABLET PO SCH (10:59)
[2017-03-13] MEDS: ASPIRIN 81 MG TABLET, CHEWABLE PO SCH (11:00)
[2017-03-13] MEDS: LACTOBACILLUS ACIDOPHILUS 250 MG TAB PO SCH ×2 (11:00→17:31)
[2017-03-13] MEDS: PREDNISONE 20 MG TABLET PO SCH ×2 (11:01→17:32)
[2017-03-13] MEDS: TIOTROPIUM BROMIDE DPI 5 CAP/KIT (18 MCG/CAP) IH SCH (11:01)
--- NOTE | 2017-03-13 14:37 | PDOC PROGRESS REPORT ---
Subjective Progress Note for:: 03/13/17 Subjective:: Patient denies any increasing shortness of breath. No increasing diarrhea as well. No nausea or vomiting, chills or fever, chest pain nor pleurisy. Physical Exam Vital Signs: Temp Pulse Resp BP Pulse Ox 97.6 F 72 18 156/81 H 100 03/13/17 12:00 03/13/17 12:00 03/13/17 12:00 03/13/17 12:00 03/13/17 12:00 Pulse Oximeter Continuous Start: 02/26/17 17: 15 Freq: RTQ4 Status: Active Document 03/13/17 05:09 EAL (Rec: 03/13/17 05:09 EAL [email or web address]) Pulse Oximetry Assessment Oxygen Saturation (92-100) 100 Oxygen Flow Rate (L/min) 2.5 Oxygen Delivery Method Nasal Cannula Fraction of Inspired Oxygen (FIO2) 30 Equipment Usage Equipment in Use Continuous SpO2 Machine # 14 Intake & Output 03/12/17 03/13/17 03/14/17 06:59 06:59 06:59 Intake Total 560 400 Output Total 300 Balance 260 400 Weight 50.1 kg 49.9 kg General appearance: PRESENT: no acute distress, cooperative, thin Mouth exam: PRESENT: moist, neck supple Neck exam: ABSENT: JVD Respiratory exam: PRESENT: decreased breath sounds, rhonchi - Occasional bilateral Cardiovascular exam: PRESENT: RRR GI/Abdominal exam: PRESENT: soft. ABSENT: distended Extremities exam: ABSENT: pedal edema Neurological exam: PRESENT: alert, awake, oriented to situation Skin exam: PRESENT: dry, warm. ABSENT: cyanosis Results Laboratory Results: 03/10/17 06:48 03/10/17 06:48 Impressions: Chest CT 02/27/17 00:00 IMPRESSION: 1. COPD. 2. Small effusions with basilar changes as above. Chest X-Ray 03/01/17 10:19 IMPRESSION: Chronic lung changes with no acute cardiopulmonary disease. Assessment & Plan - Diagnosis (1) Chronic respiratory failure with hypoxia Is this a current diagnosis for this admission?: Yes (2) C. difficile colitis Is this a current diagnosis for this admission?: Yes (3) Acute renal failure Qualifiers: Acute renal failure type: unspecified Qualified Code(s): N17.9 - Acute kidney failure, unspecified Is this a current diagnosis for this admission?: Yes (4) Anemia in CKD (chronic kidney disease) Qualifiers: Chronic kidney disease stage: stage 3 (moderate) Qualified Code(s): N18.3 - Chronic kidney disease, stage 3 (moderate); D63.1 - Anemia in chronic kidney disease Is this a current diagnosis for this admission?: Yes (5) COPD (chronic obstructive pulmonary disease) Qualifiers: COPD type: chronic bronchitis Chronic bronchitis type: unspecified Qualified Code(s): J42 - Unspecified chronic bronchitis Is this a current diagnosis for this admission?: Yes (6) Essential (primary) hypertension Is this a current diagnosis for this admission?: Yes (7) SLE (systemic lupus erythematosus) Qualifiers: Systemic lupus erythematosus type: unspecified Systemic lupus erythematosus organ involvement: unspecified Qualified Code(s): M32.9 - Systemic lupus erythematosus, unspecified Is this a current diagnosis for this admission?: Yes (8) History of stroke Is this a current diagnosis for this admission?: Yes (9) Coronary artery disease Qualifiers: Coronary Disease-Associated Artery/Lesion type: [place] artery [place] vs. transplanted heart: [place] heart Associated angina: without angina Qualified Code(s): I25.10 - Atherosclerotic heart disease of [place] coronary artery without angina pectoris Is this a current diagnosis for this admission?: Yes (10) Abdominal aortic aneurysm Qualifiers: Presence of rupture: without rupture Qualified Code(s): I71.4 - Abdominal aortic aneurysm, without rupture Is this a current diagnosis for this admission?: Yes (11) Hypothyroidism (acquired) Is this a current diagnosis for this admission?: Yes (12) GERD (gastroesophageal reflux disease) Qualifiers: Esophagitis presence: without esophagitis Qualified Code(s): K21.9 - Gastro-esophageal reflux disease without esophagitis Is this a current diagnosis for this admission?: Yes - Time Time Spent with patient: Less than 15 minutes - Plan Summary Plan Summary: Continue current medication and supportive care. Awaiting subacute rehabilitation bed.
[2017-03-14 04:46] LABS: VENOUS BLOOD BASE EXCESS 10.3 mmol/L; VENOUS BLOOD PH 7.31 (7.30-7.42)
[2017-03-14] MEDS: ACETAMINOPHEN 325 MG TABLET PO PRN (05:14)
[2017-03-14] MEDS: METRONIDAZOLE 500 MG TABLET PO SCH (05:15)
[2017-03-14] MEDS: BENZONATATE 100 MG CAPSULE PO SCH ×3 (05:15→21:32)
[2017-03-14] MEDS: IPRATROPIUM/ALBUTEROL 120 PUFF/4 GM MDI IH SCH ×4 (05:15→23:58)
[2017-03-14] MEDS: HEPARIN SOD (PORCINE) 5,000 UNIT/ML 1 ML SYRINGE SUBCUT SCH ×3 (05:15→21:29)
[2017-03-14 07:50] LABS: VENOUS BLOOD BASE EXCESS 11.3 mmol/L; VENOUS BLOOD HCO3 40.2 mmol/L (20-32); VENOUS BLOOD PH 7.33 (7.30-7.42)
[2017-03-14 07:53] LABS: VENOUS BLOOD PCO2 77.2 mmHg (35-63)
[2017-03-14] MEDS: BUDESONIDE NEB 0.5 MG/2 ML AMPUL NEB SCH ×2 (08:13→19:50)
[2017-03-14] MEDS: ALBUTEROL SULFATE 0.083% NEB 2.5 MG/3 ML AMPUL NEB PRN (08:13)
--- NOTE | 2017-03-14 09:19 | PDOC PROGRESS REPORT ---
Subjective Progress Note for:: 03/14/17 Subjective:: Patient reportedly placed back on BiPAP. Reported secondary to confusion. Venous blood gas was obtained pH was normal but the PCO2 was high. Patient however denies increasing shortness of breath. Patient reports that she talks a lot even to herself. No reported nor documented desaturation. Physical Exam Vital Signs: Temp Pulse Resp BP Pulse Ox 97.4 F 94 19 164/89 H 97 03/14/17 08:00 03/14/17 08:13 03/14/17 08:13 03/14/17 08:00 03/14/17 08:13 Pulse Oximeter Continuous Start: 02/26/17 17: 15 Freq: RTQ4 Status: Active Document 03/14/17 08:13 [facility] (Rec: 03/14/17 08:26 [facility] [email or web address]) Pulse Oximetry Assessment Oxygen Saturation (92-100) 97 Oxygen Flow Rate (L/min) 2 Oxygen Delivery Method Nasal Cannula Equipment Usage Equipment in Use Continuous SpO2 Machine # 14 Intake & Output 03/13/17 03/14/17 03/15/17 06:59 06:59 06:59 Intake Total 400 1390 Balance 400 1390 Weight 49.9 kg 52.1 kg General appearance: PRESENT: no acute distress, cooperative, thin Head exam: PRESENT: normocephalic Eye exam: PRESENT: EOMI Mouth exam: PRESENT: moist, neck supple Neck exam: ABSENT: JVD Respiratory exam: PRESENT: decreased breath sounds - Bilateral Cardiovascular exam: PRESENT: RRR. ABSENT: gallop GI/Abdominal exam: PRESENT: soft. ABSENT: distended Extremities exam: ABSENT: pedal edema Neurological exam: PRESENT: alert, awake, oriented to situation Skin exam: PRESENT: dry, warm. ABSENT: cyanosis Results Laboratory Results: 03/10/17 06:48 03/10/17 06:48 03/14/17 03/14/17 03/14/17 03:40 04:26 07:43 VBG pH Cancelled 7.31 7.33 VBG pCO2 Cancelled 82.0 H* 77.2 H* VBG HCO3 Cancelled 40.0 H 40.2 H VBG Base Excess Cancelled 10.3 11.3 Impressions: Chest CT 02/27/17 00:00 IMPRESSION: 1. COPD. 2. Small effusions with basilar changes as above. Chest X-Ray 03/01/17 10:19 IMPRESSION: Chronic lung changes with no acute cardiopulmonary disease. Assessment & Plan - Diagnosis (1) Chronic respiratory failure with hypoxia Is this a current diagnosis for this admission?: Yes (2) C. difficile colitis Is this a current diagnosis for this admission?: Yes (3) Acute renal failure Qualifiers: Acute renal failure type: unspecified Qualified Code(s): N17.9 - Acute kidney failure, unspecified Is this a current diagnosis for this admission?: Yes (4) Anemia in CKD (chronic kidney disease) Qualifiers: Chronic kidney disease stage: stage 3 (moderate) Qualified Code(s): N18.3 - Chronic kidney disease, stage 3 (moderate); D63.1 - Anemia in chronic kidney disease Is this a current diagnosis for this admission?: Yes (5) COPD (chronic obstructive pulmonary disease) Qualifiers: COPD type: chronic bronchitis Chronic bronchitis type: unspecified Qualified Code(s): J42 - Unspecified chronic bronchitis Is this a current diagnosis for this admission?: Yes (6) Essential (primary) hypertension Is this a current diagnosis for this admission?: Yes (7) SLE (systemic lupus erythematosus) Qualifiers: Systemic lupus erythematosus type: unspecified Systemic lupus erythematosus organ involvement: unspecified Qualified Code(s): M32.9 - Systemic lupus erythematosus, unspecified Is this a current diagnosis for this admission?: Yes (8) History of stroke Is this a current diagnosis for this admission?: Yes (9) Coronary artery disease Qualifiers: Coronary Disease-Associated Artery/Lesion type: [place] artery [place] vs. transplanted heart: [place] heart Associated angina: without angina Qualified Code(s): I25.10 - Atherosclerotic heart disease of [place] coronary artery without angina pectoris Is this a current diagnosis for this admission?: Yes (10) Abdominal aortic aneurysm Qualifiers: Presence of rupture: without rupture Qualified Code(s): I71.4 - Abdominal aortic aneurysm, without rupture Is this a current diagnosis for this admission?: Yes (11) Hypothyroidism (acquired) Is this a current diagnosis for this admission?: Yes (12) GERD (gastroesophageal reflux disease) Qualifiers: Esophagitis presence: without esophagitis Qualified Code(s): K21.9 - Gastro-esophageal reflux disease without esophagitis Is this a current diagnosis for this admission?: Yes - Time Time Spent with patient: 15-24 minutes - Plan Summary Plan Summary: Continue to wean the BiPAP completely. Antibiotic to complete. Awaiting subacute rehabilitation bed. Continue supportive care.
[2017-03-14] MEDS: ASPIRIN 81 MG TABLET, CHEWABLE PO SCH (10:25)
[2017-03-14] MEDS: LACTOBACILLUS ACIDOPHILUS 250 MG TAB PO SCH ×2 (10:25→17:22)
[2017-03-14] MEDS: TIOTROPIUM BROMIDE DPI 5 CAP/KIT (18 MCG/CAP) IH SCH (10:25)
[2017-03-14] MEDS: AMLODIPINE BESYLATE 5 MG TABLET PO SCH (10:25)
[2017-03-14] MEDS: METOPROLOL SUCCINATE 50 MG TAB.SR.24H PO SCH (10:25)
[2017-03-14] MEDS: PREDNISONE 20 MG TABLET PO SCH ×2 (10:25→17:22)
[2017-03-15] MEDS: HEPARIN SOD (PORCINE) 5,000 UNIT/ML 1 ML SYRINGE SUBCUT SCH ×3 (05:20→21:23)
[2017-03-15] MEDS: IPRATROPIUM/ALBUTEROL 120 PUFF/4 GM MDI IH SCH ×4 (06:19→23:01)
[2017-03-15] MEDS: BENZONATATE 100 MG CAPSULE PO SCH ×3 (06:19→21:23)
[2017-03-15] MEDS: BUDESONIDE NEB 0.5 MG/2 ML AMPUL NEB SCH ×2 (09:02→19:51)
[2017-03-15] MEDS: ALBUTEROL SULFATE 0.083% NEB 2.5 MG/3 ML AMPUL NEB PRN ×2 (09:02→23:45)
--- NOTE | 2017-03-15 10:00 | PDOC PROGRESS REPORT ---
Subjective Progress Note for:: 03/15/17 Subjective:: Patient remained on nasal cannula oxygen. Continues to use the BiPAP less. Still generally weak and has easy fatigability and gets exhausted on minimal exertion. No reported temperature spikes, nausea or vomiting, chills or fever. Patient reports soft stools. Physical Exam Vital Signs: Temp Pulse Resp BP Pulse Ox 97.9 F 98 14 151/87 H 100 03/15/17 07:54 03/15/17 09:03 03/15/17 09:03 03/15/17 07:54 03/15/17 09:03 Pulse Oximeter Continuous Start: 02/26/17 17: 15 Freq: RTQ4 Status: Active Document 03/15/17 09:03 [facility] (Rec: 03/15/17 09:45 [facility] [email or web address]) Pulse Oximetry Assessment Oxygen Saturation (92-100) 100 Oxygen Flow Rate (L/min) 3 Oxygen Delivery Method Nasal Cannula Fraction of Inspired Oxygen (FIO2) 92 Equipment Usage Equipment in Use Continuous SpO2 Machine # 14 Intake & Output 03/14/17 03/15/17 03/16/17 06:59 06:59 06:59 Intake Total 1390 1200 Balance 1390 1200 Weight 52.1 kg 48.7 kg General appearance: PRESENT: no acute distress, thin, other - Nasal cannula oxygen Head exam: PRESENT: normocephalic Eye exam: PRESENT: conjunctiva pale Mouth exam: PRESENT: moist, neck supple Neck exam: ABSENT: JVD Respiratory exam: PRESENT: decreased breath sounds. ABSENT: rhonchi, wheezes Cardiovascular exam: PRESENT: RRR. ABSENT: gallop GI/Abdominal exam: PRESENT: normal bowel sounds, soft. ABSENT: distended Extremities exam: ABSENT: pedal edema Neurological exam: PRESENT: alert, awake, oriented to situation Skin exam: PRESENT: dry, warm. ABSENT: cyanosis Results Laboratory Results: 03/10/17 06:48 03/10/17 06:48 Impressions: Chest CT 02/27/17 00:00 IMPRESSION: 1. COPD. 2. Small effusions with basilar changes as above. Chest X-Ray 03/01/17 10:19 IMPRESSION: Chronic lung changes with no acute cardiopulmonary disease. Assessment & Plan - Diagnosis (1) Chronic respiratory failure with hypoxia Is this a current diagnosis for this admission?: Yes (2) C. difficile colitis Is this a current diagnosis for this admission?: Yes (3) Acute renal failure Qualifiers: Acute renal failure type: unspecified Qualified Code(s): N17.9 - Acute kidney failure, unspecified Is this a current diagnosis for this admission?: Yes (4) Anemia in CKD (chronic kidney disease) Qualifiers: Chronic kidney disease stage: stage 3 (moderate) Qualified Code(s): N18.3 - Chronic kidney disease, stage 3 (moderate); D63.1 - Anemia in chronic kidney disease Is this a current diagnosis for this admission?: Yes (5) COPD (chronic obstructive pulmonary disease) Qualifiers: COPD type: chronic bronchitis Chronic bronchitis type: unspecified Qualified Code(s): J42 - Unspecified chronic bronchitis Is this a current diagnosis for this admission?: Yes (6) Essential (primary) hypertension Is this a current diagnosis for this admission?: Yes (7) SLE (systemic lupus erythematosus) Qualifiers: Systemic lupus erythematosus type: unspecified Systemic lupus erythematosus organ involvement: unspecified Qualified Code(s): M32.9 - Systemic lupus erythematosus, unspecified Is this a current diagnosis for this admission?: Yes (8) History of stroke Is this a current diagnosis for this admission?: Yes (9) Coronary artery disease Qualifiers: Coronary Disease-Associated Artery/Lesion type: [place] artery [place] vs. transplanted heart: [place] heart Associated angina: without angina Qualified Code(s): I25.10 - Atherosclerotic heart disease of [place] coronary artery without angina pectoris Is this a current diagnosis for this admission?: Yes (10) Abdominal aortic aneurysm Qualifiers: Presence of rupture: without rupture Qualified Code(s): I71.4 - Abdominal aortic aneurysm, without rupture Is this a current diagnosis for this admission?: Yes (11) Hypothyroidism (acquired) Is this a current diagnosis for this admission?: Yes (12) GERD (gastroesophageal reflux disease) Qualifiers: Esophagitis presence: without esophagitis Qualified Code(s): K21.9 - Gastro-esophageal reflux disease without esophagitis Is this a current diagnosis for this admission?: Yes - Time Time Spent with patient: 25-34 minutes - Plan Summary Plan Summary: We are going to continue the Flagyl for at least a total of 10 days. In the meantime we will continue to wean BiPAP. Awaiting [employer] approval for patient to go to [facility]. High-dose steroids seems to have helped her in terms of her respiration we will start to taper. Continue supportive care. Awaiting subacute rehab bed. Patient and family change their mind regarding hospice care and comfort measures. Patient wanted to try rehab first at this time prior to deciding hospice.
[2017-03-15] MEDS: LACTOBACILLUS ACIDOPHILUS 250 MG TAB PO SCH ×2 (12:22→18:54)
[2017-03-15] MEDS: AMLODIPINE BESYLATE 5 MG TABLET PO SCH (12:23)
[2017-03-15] MEDS: ASPIRIN 81 MG TABLET, CHEWABLE PO SCH (12:23)
[2017-03-15] MEDS: PREDNISONE 20 MG TABLET PO SCH ×2 (12:23→18:54)
[2017-03-15] MEDS: METOPROLOL SUCCINATE 50 MG TAB.SR.24H PO SCH (12:24)
[2017-03-15] MEDS: TIOTROPIUM BROMIDE DPI 5 CAP/KIT (18 MCG/CAP) IH SCH (12:26)
[2017-03-15] MEDS: METRONIDAZOLE 500 MG TABLET PO SCH ×2 (18:54→21:23)
[2017-03-16] MEDS: BENZONATATE 100 MG CAPSULE PO SCH ×3 (05:18→22:41)
[2017-03-16] MEDS: IPRATROPIUM/ALBUTEROL 120 PUFF/4 GM MDI IH SCH ×3 (05:18→19:29)
[2017-03-16] MEDS: METRONIDAZOLE 500 MG TABLET PO SCH ×3 (05:18→22:41)
[2017-03-16] MEDS: ACETAMINOPHEN 325 MG TABLET PO PRN (06:17)
[2017-03-16] MEDS: HEPARIN SOD (PORCINE) 5,000 UNIT/ML 1 ML SYRINGE SUBCUT SCH ×3 (06:17→22:41)
[2017-03-16 06:35] LABS: HEMATOCRIT 34.9 % (36.0-47.0); HEMOGLOBIN 11.1 g/dL (12.0-15.5); HGB HCT DIFFERENCE -1.6; MEAN CORPUSCULAR HGB CONC 31.8 g/dL (32.0-36.0); MEAN CORPUSCULAR VOLUME 95 fl (80-97); RED BLOOD COUNT 3.69 10^6/uL (3.72-5.28); RED CELL DISTRIBUTION WIDTH 14.2 % (11.5-14.0); WHITE BLOOD COUNT 6.6 10^3/uL (4.0-10.5)
[2017-03-16 07:08] LABS: ANION GAP 6 (5-19); BLOOD UREA NITROGEN 44 mg/dL (7-20); CALCIUM 9.3 mg/dL (8.4-10.2); CARBON DIOXIDE 39 mmol/L (22-30); CHLORIDE 102 mmol/L (98-107); CREATININE RESULT 0.97 mg/dL (0.52-1.25); GLUCOSE 111 mg/dL (75-110); POTASSIUM 4.4 mmol/L (3.6-5.0); SODIUM 146.8 mmol/L (137-145)
[2017-03-16] MEDS: BUDESONIDE NEB 0.5 MG/2 ML AMPUL NEB SCH ×2 (08:02→19:56)
[2017-03-16] MEDS: ALBUTEROL SULFATE 0.083% NEB 2.5 MG/3 ML AMPUL NEB PRN ×2 (08:02→14:20)
[2017-03-16] MEDS: PREDNISONE 20 MG TABLET PO SCH ×2 (09:48→16:51)
[2017-03-16] MEDS: METOPROLOL SUCCINATE 50 MG TAB.SR.24H PO SCH (09:49)
[2017-03-16] MEDS: LACTOBACILLUS ACIDOPHILUS 250 MG TAB PO SCH ×2 (09:49→16:51)
[2017-03-16] MEDS: TIOTROPIUM BROMIDE DPI 5 CAP/KIT (18 MCG/CAP) IH SCH (09:49)
[2017-03-16] MEDS: AMLODIPINE BESYLATE 5 MG TABLET PO SCH (09:49)
[2017-03-16] MEDS: ASPIRIN 81 MG TABLET, CHEWABLE PO SCH (09:49)
--- NOTE | 2017-03-16 12:23 | PDOC PROGRESS REPORT ---
Subjective Progress Note for:: 03/16/17 Subjective:: Patient complains of some shortness of breath. Physical Exam Vital Signs: Temp Pulse Resp BP Pulse Ox 99 F 80 15 155/81 H 97 03/16/17 00:00 03/16/17 07:00 03/16/17 04:00 03/16/17 00:00 03/16/17 04:00 Pulse Oximeter Continuous Start: 02/26/17 17: 15 Freq: RTQ4 Status: Active Document 03/16/17 04:00 [facility] (Rec: 03/16/17 04:13 [facility] [email or web address]) Pulse Oximetry Assessment Oxygen Saturation (92-100) 97 Oxygen Delivery Method Bi-pap Fraction of Inspired Oxygen (FIO2) 28 Equipment Usage Equipment in Use Continuous Pulse Oximeter 24 Hour Charge Charge Now Continuous SpO2 Machine # 14 Intake & Output 03/15/17 03/16/17 03/17/17 06:59 06:59 06:59 Intake Total 1200 355 Balance 1200 355 Weight 48.7 kg General appearance: PRESENT: no acute distress Eye exam: PRESENT: conjunctiva pink. ABSENT: scleral icterus Mouth exam: PRESENT: moist, tongue midline Neck exam: ABSENT: JVD Respiratory exam: PRESENT: clear to auscultation amaury. ABSENT: rales, rhonchi, wheezes Cardiovascular exam: PRESENT: RRR. ABSENT: diastolic murmur, rubs, systolic murmur GI/Abdominal exam: PRESENT: normal bowel sounds, soft. ABSENT: distended, guarding, mass, organolmegaly, rebound, tenderness Extremities exam: ABSENT: calf tenderness, clubbing, pedal edema Neurological exam: PRESENT: alert, awake, oriented to person, oriented to place , oriented to time, oriented to situation, CN II-XII grossly intact. ABSENT: motor sensory deficit Psychiatric exam: PRESENT: appropriate affect Skin exam: PRESENT: dry, intact, warm. ABSENT: cyanosis, rash Results Laboratory Results: 03/16/17 06:11 03/16/17 06:11 03/16/17 03/16/17 06:11 06:11 WBC 6.6 RBC 3.69 L Hgb 11.1 L Hct 34.9 L MCV 95 MCH 30.0 MCHC 31.8 L RDW 14.2 H Plt Count 191 Sodium 146.8 H Potassium 4.4 Chloride 102 Carbon Dioxide 39 H Anion Gap 6 BUN 44 H Creatinine 0.97 Est GFR ( Amer) > 60 Est GFR (Non-Af Amer) 58 L Glucose 111 H Calcium 9.3 Impressions: Chest CT 02/27/17 00:00 IMPRESSION: 1. COPD. 2. Small effusions with basilar changes as above. Chest X-Ray 03/01/17 10:19 IMPRESSION: Chronic lung changes with no acute cardiopulmonary disease. Assessment & Plan - Diagnosis (1) Chronic respiratory failure with hypoxia Is this a current diagnosis for this admission?: YesPlan: Patient has end-stage COPD. Initially was going to go to hospice however the family has changed her mind that she will going to rehab when a bed becomes available. BiPAP as needed. (2) C. difficile colitis Is this a current diagnosis for this admission?: YesPlan: patient reports that her diarrhea has improved. Continue with Flagyl. (3) COPD (chronic obstructive pulmonary disease) Qualifiers: COPD type: chronic bronchitis Chronic bronchitis type: unspecified Qualified Code(s): J42 - Unspecified chronic bronchitis Is this a current diagnosis for this admission?: YesPlan: continue with nebulizers and BiPAP. (4) Essential (primary) hypertension Is this a current diagnosis for this admission?: Yes (5) Anxiety Is this a current diagnosis for this admission?: Yes - Time Time Spent with patient: 25-34 minutes - Inpatient Certification Medical Necessity: Need Close Monitoring Due to Risk of Patient Decompensation - Plan Summary Plan Summary: Plan on DC to rehab when a bed becomes available.
[2017-03-17] MEDS: IPRATROPIUM/ALBUTEROL 120 PUFF/4 GM MDI IH SCH ×5 (00:43→23:26)
[2017-03-17] MEDS: BENZONATATE 100 MG CAPSULE PO SCH ×3 (06:19→22:20)
[2017-03-17] MEDS: METRONIDAZOLE 500 MG TABLET PO SCH ×3 (06:19→22:20)
[2017-03-17] MEDS: HEPARIN SOD (PORCINE) 5,000 UNIT/ML 1 ML SYRINGE SUBCUT SCH ×3 (06:19→22:20)
[2017-03-17] MEDS: BUDESONIDE NEB 0.5 MG/2 ML AMPUL NEB SCH ×2 (07:53→19:58)
[2017-03-17] MEDS: AMLODIPINE BESYLATE 5 MG TABLET PO SCH (09:34)
[2017-03-17] MEDS: LACTOBACILLUS ACIDOPHILUS 250 MG TAB PO SCH ×2 (09:34→19:34)
[2017-03-17] MEDS: METOPROLOL SUCCINATE 50 MG TAB.SR.24H PO SCH (09:34)
[2017-03-17] MEDS: PREDNISONE 20 MG TABLET PO SCH ×2 (09:34→19:34)
[2017-03-17] MEDS: ASPIRIN 81 MG TABLET, CHEWABLE PO SCH (09:34)
[2017-03-17] MEDS: TIOTROPIUM BROMIDE DPI 5 CAP/KIT (18 MCG/CAP) IH SCH (09:35)
--- NOTE | 2017-03-17 11:15 | PDOC PROGRESS REPORT ---
Subjective Progress Note for:: 03/17/17 Subjective:: Patient complains of pleuritic type chest pain Physical Exam Vital Signs: Temp Pulse Resp BP Pulse Ox 98.0 F 76 20 152/82 H 100 03/17/17 08:14 03/17/17 08:14 03/17/17 08:14 03/17/17 08:14 03/17/17 08:14 Pulse Oximeter Continuous Start: 02/26/17 17: 15 Freq: RTQ4 Status: Active Document 03/17/17 07:52 [facility] (Rec: 03/17/17 08:02 [facility] [email or web address]) Pulse Oximetry Assessment Oxygen Saturation (92-100) 100 Oxygen Flow Rate (L/min) 2.5 Oxygen Delivery Method Nasal Cannula Fraction of Inspired Oxygen (FIO2) 30 Equipment Usage Equipment in Use Continuous SpO2 Machine # 14 Intake & Output 03/16/17 03/17/17 03/18/17 06:59 06:59 06:59 Intake Total 355 360 Balance 355 360 Weight 98.9 kg General appearance: PRESENT: no acute distress Eye exam: PRESENT: conjunctiva pink. ABSENT: scleral icterus Mouth exam: PRESENT: moist, tongue midline Neck exam: ABSENT: JVD Respiratory exam: PRESENT: clear to auscultation amaury. ABSENT: rales, rhonchi, wheezes Cardiovascular exam: PRESENT: RRR. ABSENT: diastolic murmur, rubs, systolic murmur GI/Abdominal exam: PRESENT: normal bowel sounds, soft. ABSENT: distended, guarding, mass, organolmegaly, rebound, tenderness Extremities exam: ABSENT: calf tenderness, clubbing, pedal edema Neurological exam: PRESENT: alert, awake, oriented to person, oriented to place , oriented to time, oriented to situation, CN II-XII grossly intact. ABSENT: motor sensory deficit Psychiatric exam: PRESENT: appropriate affect Skin exam: PRESENT: dry, intact, warm. ABSENT: cyanosis, rash Results Laboratory Results: 03/16/17 06:11 03/16/17 06:11 Impressions: Chest CT 02/27/17 00:00 IMPRESSION: 1. COPD. 2. Small effusions with basilar changes as above. Chest X-Ray 03/01/17 10:19 IMPRESSION: Chronic lung changes with no acute cardiopulmonary disease. Assessment & Plan - Diagnosis (1) Chronic respiratory failure with hypoxia Is this a current diagnosis for this admission?: YesPlan: Patient has end-stage COPD. she will going to rehab when a bed becomes available. BiPAP as needed. (2) C. difficile colitis Is this a current diagnosis for this admission?: YesPlan: patient reports that her diarrhea continues to improve. Continue with Flagyl. (3) COPD (chronic obstructive pulmonary disease) Qualifiers: COPD type: chronic bronchitis Chronic bronchitis type: unspecified Qualified Code(s): J42 - Unspecified chronic bronchitis Is this a current diagnosis for this admission?: YesPlan: continue with nebulizers and BiPAP. (4) Essential (primary) hypertension Is this a current diagnosis for this admission?: Yes (5) Anxiety Is this a current diagnosis for this admission?: YesPlan: Increase the Haldol to 5 mg twice daily. Hopefully once her anxiety is under better control she can tolerate being off of the BiPAP.
[2017-03-17] MEDS: ALBUTEROL SULFATE 0.083% NEB 2.5 MG/3 ML AMPUL NEB PRN (19:58)
[2017-03-18] MEDS: IPRATROPIUM/ALBUTEROL 120 PUFF/4 GM MDI IH SCH ×4 (05:36→23:48)
[2017-03-18] MEDS: BENZONATATE 100 MG CAPSULE PO SCH ×3 (05:36→21:45)
[2017-03-18] MEDS: METRONIDAZOLE 500 MG TABLET PO SCH ×3 (05:36→21:45)
[2017-03-18] MEDS: HEPARIN SOD (PORCINE) 5,000 UNIT/ML 1 ML SYRINGE SUBCUT SCH ×3 (05:36→21:46)
[2017-03-18] MEDS: ALBUTEROL SULFATE 0.083% NEB 2.5 MG/3 ML AMPUL NEB PRN ×2 (07:52→19:57)
[2017-03-18] MEDS: BUDESONIDE NEB 0.5 MG/2 ML AMPUL NEB SCH ×2 (07:53→19:57)
--- NOTE | 2017-03-18 10:14 | PDOC TRANSFER SUMMARY ---
General - Admit/Disc Date/PCP Admission Date/Primary Care Provider: 02/21/17 22:03 BLANCA GRIDER, DO Discharge Date: 03/18/17 - Discharge Diagnosis (1) Chronic respiratory failure with hypoxia Is this a current diagnosis for this admission?: YesSummary: Secondary to COPD exacerbation. Patient at one point had agreed to be a DO NOT RESUSCITATE and go home with hospice. She has improved and has rescinded her decision and request to be a full code again. (2) C. difficile colitis Is this a current diagnosis for this admission?: YesSummary: Patient has been on Flagyl and has been improving. She will complete an additional 7 days of Flagyl. (3) COPD (chronic obstructive pulmonary disease) Is this a current diagnosis for this admission?: Yes (4) Essential (primary) hypertension Is this a current diagnosis for this admission?: Yes (5) Anxiety Is this a current diagnosis for this admission?: Yes - Additional Information Resuscitation Status: Full Code Discharge Diet: Cardiac Discharge Activity: Activity As Tolerated Home Medications: Albuterol Sulfate [Ventolin Hfa] 2 puff IH Q4HP PRN 02/21/17 Amlodipine Besylate 5 mg PO DAILY 02/21/17 Aspirin [Aspirin 81 mg Chewable Tablet] 81 mg PO DAILY 02/21/17 Budesonide/Formoterol Fumarate [Symbicort 160-4.5 Mcg Inhaler] 2 puff IH BID Cholecalciferol (Vitamin D3) [Vitamin D3] 1,000 units PO DAILY 02/21/17 Isosorbide Mononitrate [Imdur 30 mg Tablet.er] 30 mg PO QPM 02/21/17 Metoprolol Succinate [Toprol Xl] 50 mg PO DAILY 02/21/17 Omeprazole 40 mg PO DAILY 02/21/17 Ondansetron HCl [Zofran 4 mg Tablet] 4 mg PO Q4HP PRN 02/21/17 Pravastatin Sodium 10 mg PO DAILY 02/21/17 Tiotropium [place] [Spiriva Handihaler 5 Cap/Kit (18 Mcg/Cap)] 18 mcg IH DAILY 02/21/17 Folic Acid/Vitamin B Comp W-C [Nephrocaps Multiple Vitamin Capsule] 1 cap PO WSUPPER 02/22/17 Losartan Potassium [Cozaar 25 mg Tablet] 25 mg PO DAILY 02/22/17 Nitroglycerin [Nitrostat] 0.4 mg SL Q5MP PRN 02/22/17 Metronidazole [Flagyl 500 mg Tablet] 500 mg PO Q8 #20 tablet 03/18/17 Prednisone [Deltasone 20 mg Tablet] 10 mg PO DAILY #21 tablet 03/18/17 History of Present Illness Admission Date/PCP: 02/21/17 22:03 BLANCA GRIDER DO History of Present Illness: LAURYN PETTY is a 61 year old female with a history of end-stage COPD, hypertension, history of CVA of the breast, CKD stage 3/4 with a base creatinine of 1.5 was admitted with history of progressive weakness and shortness of breath. Apparently she was hospitalized in [place] the week before and she was discharged on Wednesday. Then she gives history of being worked up for possible abdominal aortic aneurysm. Unsure of whether she had angiogram and use of contrast [place].Currently she says her nausea vomiting is better. She denies any history of fever chills. She has left-sided back pains. No history of dysuria or hematuria.Diarrhea has resolved and she has been constipated for the last 2 days. She does not know if she was positive for C. difficile and what antibiotics was given. Hospital Course Hospital Course: 61-year-old female admitted with an acute COPD exacerbation along with acute renal failure. The patient was treated with IV steroids and nebulizers as well as BiPAP for her COPD exacerbation. The patient's COPD was very slow to improve. The patient initially made minimal improvement and pulmonary medicine was consulted. Patient has known end-stage COPD. The patient because of her failure to improve was made a DO NOT RESUSCITATE at her and her family's wish. The family was at the bedside and the possibility of hospice was discussed. They agreed to hospice and we were trying to wean the patient off BiPAP so she could go to inpatient hospice treatment. The patient however did show improvement and her respiratory status improved well enough that she could be off of BiPAP for a good part of the day. She changed her mind and rescinded her DO NOT RESUSCITATE and hospice orders. Patient requests to go to rehab and get stronger and she requests to be a full code. The patient when she presented also was noted to have C. difficile. She has been on Flagyl and has had improvement in her colitis. Patient is having about 2 bowel movements daily now. She has been on Flagyl now for 3 weeks and will recommend 1 additional week of Flagyl at which time she could be taken off of that if she is negative. The patient when she presented also had acute on chronic renal failure and nephrology was consulted. Patient has had improvement in her renal function and she has been making adequate urine and remains euvolemic. Patient has a history of heart disease but has not had any complaints of that. Patient has been accepted at [facility] and she will go there for rehab. The patient still requires BiPAP intermittently she becomes short of breath and her settings for her BiPAP are inspiratory pressure 15, expiratory pressure 6 with a rate of 12. FiO2 is 28%. Physical Exam Vital Signs: Temp Pulse Resp BP Pulse Ox 97.7 F 79 16 146/72 H 98 03/18/17 08:00 03/18/17 08:00 03/18/17 08:00 03/18/17 08:00 03/18/17 08:00 Pulse Oximeter Continuous Start: 02/26/17 17: 15 Freq: RTQ4 Status: Active Document 03/18/17 07:56 [facility] (Rec: 03/18/17 07:58 [facility] [email or web address]) Pulse Oximetry Assessment Equipment Usage Equipment in Use Continuous SpO2 Machine # [id number] Intake & Output 03/17/17 03/18/17 03/19/17 06:59 06:59 06:59 Intake Total 360 680 Balance 360 680 Weight 98.9 kg General appearance: PRESENT: no acute distress Eye exam: PRESENT: conjunctiva pink. ABSENT: scleral icterus Mouth exam: PRESENT: moist, tongue midline Neck exam: ABSENT: JVD Respiratory exam: PRESENT: clear to auscultation amaury. ABSENT: rales, rhonchi, wheezes Cardiovascular exam: PRESENT: RRR. ABSENT: diastolic murmur, rubs, systolic murmur GI/Abdominal exam: PRESENT: normal bowel sounds, soft. ABSENT: distended, guarding, mass, organolmegaly, rebound, tenderness Rectal exam: PRESENT: deferred Extremities exam: ABSENT: calf tenderness, clubbing, pedal edema Neurological exam: PRESENT: alert, awake, oriented to person, oriented to place , oriented to time, oriented to situation, CN II-XII grossly intact. ABSENT: motor sensory deficit Psychiatric exam: PRESENT: appropriate affect Skin exam: PRESENT: dry, intact, warm. ABSENT: cyanosis, rash Results Laboratory Results: 03/16/17 06:11 03/16/17 06:11 Impressions: Chest CT 02/27/17 00:00 IMPRESSION: 1. COPD. 2. Small effusions with basilar changes as above. Chest X-Ray 03/01/17 10:19 IMPRESSION: Chronic lung changes with no acute cardiopulmonary disease. Transfer Plan - Disposition [facility] BEING DISCHARGED WITH ANY OF THE FOLLOWING DIAGNOSIS?: No Plan Discharge Plan: Patient is discharged to [facility] for PT and OT. Time Spent: Greater than 30 Minutes
[2017-03-18] MEDS: LACTOBACILLUS ACIDOPHILUS 250 MG TAB PO SCH ×2 (11:16→17:10)
[2017-03-18] MEDS: ASPIRIN 81 MG TABLET, CHEWABLE PO SCH (11:17)
[2017-03-18] MEDS: AMLODIPINE BESYLATE 5 MG TABLET PO SCH (11:17)
[2017-03-18] MEDS: METOPROLOL SUCCINATE 50 MG TAB.SR.24H PO SCH (11:18)
[2017-03-18] MEDS: PREDNISONE 20 MG TABLET PO SCH ×2 (11:18→17:10)
[2017-03-18] MEDS: TIOTROPIUM BROMIDE DPI 5 CAP/KIT (18 MCG/CAP) IH SCH (11:19)
[2017-03-19] MEDS: METRONIDAZOLE 500 MG TABLET PO SCH ×2 (06:03→13:52)
[2017-03-19] MEDS: BENZONATATE 100 MG CAPSULE PO SCH ×2 (06:03→13:52)
[2017-03-19] MEDS: IPRATROPIUM/ALBUTEROL 120 PUFF/4 GM MDI IH SCH ×3 (06:03→17:41)
[2017-03-19] MEDS: HEPARIN SOD (PORCINE) 5,000 UNIT/ML 1 ML SYRINGE SUBCUT SCH ×2 (06:07→13:52)
[2017-03-19] MEDS: BUDESONIDE NEB 0.5 MG/2 ML AMPUL NEB SCH (07:45)
[2017-03-19] MEDS: TIOTROPIUM BROMIDE DPI 5 CAP/KIT (18 MCG/CAP) IH SCH (08:59)
[2017-03-19] MEDS: METOPROLOL SUCCINATE 50 MG TAB.SR.24H PO SCH (09:04)
[2017-03-19] MEDS: LACTOBACILLUS ACIDOPHILUS 250 MG TAB PO SCH ×2 (09:04→17:41)
[2017-03-19] MEDS: PREDNISONE 20 MG TABLET PO SCH ×2 (09:04→17:40)
[2017-03-19] MEDS: ASPIRIN 81 MG TABLET, CHEWABLE PO SCH (09:04)
[2017-03-19] MEDS: AMLODIPINE BESYLATE 5 MG TABLET PO SCH (09:04)
[2017-03-19 19:51] VITALS: BP 159/84
--- NOTE | 2017-03-22 17:02 | PDOC PROGRESS REPORT ---
Subjective Progress Note for:: 03/15/17 Subjective:: Awake very interactive Physical Exam Vital Signs: Temp Pulse Resp BP Pulse Ox 97.7 F 80 18 141/68 H 100 03/15/17 19:51 03/15/17 19:51 03/15/17 19:51 03/15/17 19:51 03/15/17 19:51 Pulse Oximeter Continuous Start: 02/26/17 17: 15 Freq: RTQ4 Status: Active Document 03/15/17 12:15 [facility] (Rec: 03/15/17 12:18 [facility] [email or web address]) Pulse Oximetry Assessment Oxygen Saturation (92-100) 100 Oxygen Flow Rate (L/min) 3 Oxygen Delivery Method Room Air Fraction of Inspired Oxygen (FIO2) 32 Equipment Usage Equipment in Use Continuous SpO2 Machine # N 14 Intake & Output 03/14/17 03/15/17 03/16/17 06:59 06:59 06:59 Intake Total 1390 1200 355 Balance 1390 1200 355 Weight 52.1 kg 48.7 kg General appearance: PRESENT: no acute distress, cooperative, disheveled, thin, well-developed Head exam: PRESENT: atraumatic, normocephalic Eye exam: PRESENT: conjunctiva pale, EOMI Mouth exam: PRESENT: dry mucosa, neck supple, tongue midline Neck exam: ABSENT: carotid bruit, JVD, lymphadenopathy, thyromegaly Respiratory exam: PRESENT: decreased breath sounds, prolonged expiratory phas, rhonchi, symmetrical, unlabored Cardiovascular exam: PRESENT: RRR, +S1, +S2 GI/Abdominal exam: PRESENT: normal bowel sounds, soft. ABSENT: distended, guarding, mass, organolmegaly, rebound, tenderness Rectal exam: PRESENT: deferred Musculoskeletal exam: PRESENT: normal inspection Neurological exam: PRESENT: alert, awake Psychiatric exam: PRESENT: normal mood Skin exam: PRESENT: dry, warm Results Laboratory Results: 03/10/17 06:48 03/10/17 06:48 Impressions: Chest CT 02/27/17 00:00 IMPRESSION: 1. COPD. 2. Small effusions with basilar changes as above. Chest X-Ray 03/01/17 10:19 IMPRESSION: Chronic lung changes with no acute cardiopulmonary disease. Assessment & Plan - Diagnosis (1) Chronic respiratory failure with hypoxia Is this a current diagnosis for this admission?: Yes (2) SLE (systemic lupus erythematosus) Qualifiers: Systemic lupus erythematosus type: unspecified Systemic lupus erythematosus organ involvement: unspecified Qualified Code(s): M32.9 - Systemic lupus erythematosus, unspecified Is this a current diagnosis for this admission?: Yes (3) Protein calorie malnutrition Is this a current diagnosis for this admission?: Yes (4) COPD (chronic obstructive pulmonary disease) Qualifiers: COPD type: chronic bronchitis Chronic bronchitis type: unspecified Qualified Code(s): J42 - Unspecified chronic bronchitis Is this a current diagnosis for this admission?: Yes
--- NOTE | 2017-03-22 17:03 | PDOC PROGRESS REPORT ---
Subjective Progress Note for:: 03/16/17 Subjective:: Awake very interactive Physical Exam Vital Signs: Temp Pulse Resp BP Pulse Ox 98.2 F 81 15 150/77 H 100 03/16/17 15:49 03/16/17 15:49 03/16/17 15:49 03/16/17 15:49 03/16/17 15:49 Pulse Oximeter Continuous Start: 02/26/17 17: 15 Freq: RTQ4 Status: Active Document 03/16/17 15:00 [facility] (Rec: 03/16/17 16:17 [facility] [email or web address]) Pulse Oximetry Assessment Oxygen Saturation (92-100) 99 Oxygen Flow Rate (L/min) 2 Oxygen Delivery Method Nasal Cannula Equipment Usage Equipment in Use Continuous SpO2 Machine # 14 Intake & Output 03/15/17 03/16/17 03/17/17 06:59 06:59 06:59 Intake Total 1200 355 120 Balance 1200 355 120 Weight 48.7 kg General appearance: PRESENT: no acute distress, cooperative, disheveled, thin, well-developed Head exam: PRESENT: atraumatic, normocephalic Eye exam: PRESENT: conjunctiva pale, EOMI Mouth exam: PRESENT: dry mucosa, neck supple, tongue midline Neck exam: ABSENT: carotid bruit, JVD, lymphadenopathy, thyromegaly Respiratory exam: PRESENT: decreased breath sounds, prolonged expiratory phas, rhonchi, unlabored Cardiovascular exam: PRESENT: RRR, +S1, +S2 Pulses: PRESENT: normal radial pulses GI/Abdominal exam: PRESENT: normal bowel sounds, soft. ABSENT: distended, guarding, mass, organolmegaly, rebound, tenderness Rectal exam: PRESENT: deferred Musculoskeletal exam: PRESENT: normal inspection Neurological exam: PRESENT: alert, awake Psychiatric exam: PRESENT: normal mood Skin exam: PRESENT: dry, warm Results Laboratory Results: 03/16/17 06:11 03/16/17 06:11 03/16/17 03/16/17 06:11 06:11 WBC 6.6 RBC 3.69 L Hgb 11.1 L Hct 34.9 L MCV 95 MCH 30.0 MCHC 31.8 L RDW 14.2 H Plt Count 191 Sodium 146.8 H Potassium 4.4 Chloride 102 Carbon Dioxide 39 H Anion Gap 6 BUN 44 H Creatinine 0.97 Est GFR ( Amer) > 60 Est GFR (Non-Af Amer) 58 L Glucose 111 H Calcium 9.3 Impressions: Chest CT 02/27/17 00:00 IMPRESSION: 1. COPD. 2. Small effusions with basilar changes as above. Chest X-Ray 03/01/17 10:19 IMPRESSION: Chronic lung changes with no acute cardiopulmonary disease. Assessment & Plan - Diagnosis (1) Chronic respiratory failure with hypoxia Is this a current diagnosis for this admission?: Yes (2) SLE (systemic lupus erythematosus) Qualifiers: Systemic lupus erythematosus type: unspecified Systemic lupus erythematosus organ involvement: unspecified Qualified Code(s): M32.9 - Systemic lupus erythematosus, unspecified Is this a current diagnosis for this admission?: Yes (3) Protein calorie malnutrition Is this a current diagnosis for this admission?: Yes (4) COPD (chronic obstructive pulmonary disease) Qualifiers: COPD type: chronic bronchitis Chronic bronchitis type: unspecified Qualified Code(s): J42 - Unspecified chronic bronchitis Is this a current diagnosis for this admission?: Yes
--- NOTE | 2017-03-22 17:04 | PDOC PROGRESS REPORT ---
Subjective Progress Note for:: 03/18/17 Subjective:: Awake very interactive Physical Exam Vital Signs: Temp Pulse Resp BP Pulse Ox 98.1 F 81 16 138/72 H 100 03/18/17 11:50 03/18/17 11:50 03/18/17 11:50 03/18/17 11:50 03/18/17 12:00 Pulse Oximeter Continuous Start: 02/26/17 17: 15 Freq: RTQ4 Status: Active Document 03/18/17 12:00 [facility] (Rec: 03/18/17 13:40 [facility] [email or web address]) Pulse Oximetry Assessment Oxygen Saturation (92-100) 100 Oxygen Flow Rate (L/min) 2 Oxygen Delivery Method Nasal Cannula Equipment Usage Equipment in Use Continuous SpO2 Machine # [id number] Intake & Output 03/17/17 03/18/17 03/19/17 06:59 06:59 06:59 Intake Total 360 680 Balance 360 680 Weight 98.9 kg General appearance: PRESENT: no acute distress, cooperative, disheveled, thin, well-developed Head exam: PRESENT: atraumatic, normocephalic Eye exam: PRESENT: conjunctiva pale, EOMI Mouth exam: PRESENT: dry mucosa, neck supple, tongue midline Neck exam: ABSENT: carotid bruit, JVD, lymphadenopathy, thyromegaly Respiratory exam: PRESENT: decreased breath sounds, prolonged expiratory phas, symmetrical, unlabored Cardiovascular exam: PRESENT: RRR, +S1, +S2 Pulses: PRESENT: normal radial pulses GI/Abdominal exam: PRESENT: normal bowel sounds, soft. ABSENT: distended, guarding, mass, organolmegaly, rebound, tenderness Rectal exam: PRESENT: deferred Musculoskeletal exam: PRESENT: normal inspection Neurological exam: PRESENT: alert, awake Psychiatric exam: PRESENT: normal mood Skin exam: PRESENT: dry, warm Results Laboratory Results: 03/16/17 06:11 03/16/17 06:11 Impressions: Chest CT 02/27/17 00:00 IMPRESSION: 1. COPD. 2. Small effusions with basilar changes as above. Chest X-Ray 03/01/17 10:19 IMPRESSION: Chronic lung changes with no acute cardiopulmonary disease. Assessment & Plan - Diagnosis (1) Chronic respiratory failure with hypoxia Is this a current diagnosis for this admission?: Yes (2) SLE (systemic lupus erythematosus) Qualifiers: Systemic lupus erythematosus type: unspecified Systemic lupus erythematosus organ involvement: unspecified Qualified Code(s): M32.9 - Systemic lupus erythematosus, unspecified Is this a current diagnosis for this admission?: Yes (3) Protein calorie malnutrition Is this a current diagnosis for this admission?: Yes (4) COPD (chronic obstructive pulmonary disease) Qualifiers: COPD type: chronic bronchitis Chronic bronchitis type: unspecified Qualified Code(s): J42 - Unspecified chronic bronchitis Is this a current diagnosis for this admission?: Yes
== END 2017-03-19 20:10 | DRG 191 ==
LOC: ER 18:26 → EH 22:03 → UNDOADMIN 22:23 → EH 22:23 → 5 02-22 01:00
PROVIDERS: ADMIT Internal Medicine; ATTEND Internal Medicine
PROC: 3E0F73Z Introduction of Anti-inflammatory into Respiratory Tract, Via Natural or Artificial Opening (ICD-10-PCS; 2017-02-22)
PROC: 5A09557 Assistance with Respiratory Ventilation, Greater than 96 Consecutive Hours, Continuous Positive Airway Pressure (ICD-10-PCS; 2017-02-26)
PROC: 30233N1 Transfusion of Nonautologous Red Blood Cells into Peripheral Vein, Percutaneous Approach (ICD-10-PCS; principal; 2017-02-28)
DX: J44.1 Chronic obstructive pulmonary disease with (acute) exacerbation (principal); N17.9 Acute kidney failure, unspecified; J96.11 Chronic respiratory failure with hypoxia; E46 Unspecified protein-calorie malnutrition; Z68.1 Body mass index [BMI] 19.9 or less, adult; E87.2 Acidosis; B37.0 Candidal stomatitis; A04.7 Enterocolitis due to Clostridium difficile; I12.9 Hypertensive chronic kidney disease with stage 1 through stage 4 chronic kidney disease, or unspecified chronic kidney disease; N18.3 Chronic kidney disease, stage 3 (moderate); Z99.81 Dependence on supplemental oxygen; I71.4 Abdominal aortic aneurysm, without rupture; I25.10 Atherosclerotic heart disease of native coronary artery without angina pectoris; D63.1 Anemia in chronic kidney disease; E86.0 Dehydration; M32.9 Systemic lupus erythematosus, unspecified; F41.9 Anxiety disorder, unspecified; E03.9 Hypothyroidism, unspecified; F32.9 Major depressive disorder, single episode, unspecified; K59.00 Constipation, unspecified; I25.2 Old myocardial infarction; Z90.49 Acquired absence of other specified parts of digestive tract; Z90.10 Acquired absence of unspecified breast and nipple; Z95.5 Presence of coronary angioplasty implant and graft; K21.9 Gastro-esophageal reflux disease without esophagitis; Z79.82 Long term (current) use of aspirin; Z86.73 Personal history of transient ischemic attack (TIA), and cerebral infarction without residual deficits; Z85.3 Personal history of malignant neoplasm of breast; Z79.52 Long term (current) use of systemic steroids; Z88.2 Allergy status to sulfonamides; Z91.013 Allergy to seafood; Z98.51 Tubal ligation status
CPT/HCPCS: 36415; 36430; 36600; 71010; 71020; 71250; 80048; 80053; 81001; 82550; 82607; 82728; 82746; 82803; 83540; 83550; 83735; 83970; 84100; 84165; 84443; 85025; 85027; 85045; 86850; 86900; 86901; 86920; 87040; 87493; 93005; 93010; 93975; 94640; 94660; 94762; 96361; 96365; 96375; 99291; G8978-GP; G8979-GP; J1100; J1644; J1956; J2930; J3490; J7030; J7050; J7512; J7620; P9016

== ENCOUNTER 2017-04-02 04:24 | Emergency (ER) | payer MEDICARE ==
[2017-04-02 05:38] LABS: ABSOLUTE LYMPHOCYTES (AUTO) 1.4 10^3/uL (0.5-4.7); ABSOLUTE MONOCYTES (AUTO) 0.3 10^3/uL (0.1-1.4); ABSOLUTE NEUT (AUTO) 1.9 10^3/uL (1.7-8.2); BASOPHILS % (AUTO) 0.1 % (0-2); EOSINOPHILS % (AUTO) 1.3 % (0-6); HEMATOCRIT 16.5 % (36.0-47.0); LYMPHOCYTES % (AUTO) 38.5 % (13-45); MEAN CORPUSCULAR HGB CONC 32.6 g/dL (32.0-36.0); MEAN CORPUSCULAR VOLUME 98 fl (80-97); MONOCYTES % (AUTO) 8.8 % (3-13); RED BLOOD COUNT 1.68 10^6/uL (3.72-5.28); SEGMENTED NEUTROPHILS % (AUTO) 51.3 % (42-78); WHITE BLOOD COUNT 3.7 10^3/uL (4.0-10.5)
[2017-04-02 06:04] LABS: HGB HCT DIFFERENCE -0.3
[2017-04-02 06:05] LABS: HEMOGLOBIN 5.4 g/dL (12.0-15.5)
[2017-04-02 06:47] LABS: ALANINE AMINOTRANSFERASE 18 U/L (9-52); ALBUMIN 2.4 g/dL (3.5-5.0); ALKALINE PHOSPHATASE 58 U/L (38-126); ANION GAP 5 (5-19); ASPARTATE AMINO TRANSFERASE 21 U/L (14-36); BILIRUBIN,DIRECT 0.3 mg/dL (0.0-0.4); BILIRUBIN,TOTAL 0.3 mg/dL (0.2-1.3); BLOOD UREA NITROGEN 32 mg/dL (7-20); CALCIUM 8.2 mg/dL (8.4-10.2); CARBON DIOXIDE 34 mmol/L (22-30); CHLORIDE 106 mmol/L (98-107); CREATININE RESULT 1.24 mg/dL (0.52-1.25); GLUCOSE 78 mg/dL (75-110); POTASSIUM 4.3 mmol/L (3.6-5.0); SODIUM 144.5 mmol/L (137-145); TOTAL PROTEIN 5.1 g/dL (6.3-8.2)
[2017-04-02] MEDS ORDERED: NORMAL SALINE 250 ML IV PRN ×2 (06:58)
[2017-04-02 07:57] LABS: FOLATE > 20.00 ng/mL (>2.76)
[2017-04-02 12:46] LABS: ABSOLUTE EOSINOPHILS # (AUTO) 0.1 10^3/uL (0.0-0.6); ABSOLUTE LYMPHOCYTES (AUTO) 2.1 10^3/uL (0.5-4.7); ABSOLUTE MONOCYTES (AUTO) 0.5 10^3/uL (0.1-1.4); ABSOLUTE NEUT (AUTO) 3.6 10^3/uL (1.7-8.2); BASOPHILS % (AUTO) 0.4 % (0-2); EOSINOPHILS % (AUTO) 1.3 % (0-6); HEMATOCRIT 31.2 % (36.0-47.0); LYMPHOCYTES % (AUTO) 33.8 % (13-45); MEAN CORPUSCULAR HEMOGLOBIN 30.4 pg (27.0-33.4); MEAN CORPUSCULAR HGB CONC 33.3 g/dL (32.0-36.0); MONOCYTES % (AUTO) 8.3 % (3-13); RED BLOOD COUNT 3.42 10^6/uL (3.72-5.28); RED CELL DISTRIBUTION WIDTH 15.6 % (11.5-14.0); SEGMENTED NEUTROPHILS % (AUTO) 56.2 % (42-78); WHITE BLOOD COUNT 6.3 10^3/uL (4.0-10.5)
[2017-04-02 13:16] LABS: HEMOGLOBIN 10.4 g/dL (12.0-15.5); MEAN CORPUSCULAR VOLUME 91 fl (80-97)
--- NOTE | 2017-04-02 13:49 | ER Document Report ---
ED General - General Chief Complaint: Abnormal Lab Results Stated Complaint: ABNORMAL LABS Time Seen by Provider: 04/02/17 06:28 TRAVEL OUTSIDE OF THE [place] IN LAST 30 DAYS: No - HPI Patient complains to provider of: Abnormal laboratory values Notes: Patient coming in for evaluation of a low H&H performed at the assisted. Patient has a history of chronic anemia due to renal disease. Patient also was recently admitted and had a long extended stay here in the hospital. Upon evaluation patient complains of generalized weakness otherwise has no other complaints. Patient states she is checked daily for blood in her stool has not had any reports of blood in her stool noted dark stool states light brown stools. Patient otherwise has no other complaints no fevers chills nausea vomiting abdominal pain chest pain. - Related Data Allergies/Adverse Reactions: Sulfa (Sulfonamide Antibiotics) Allergy (Severe, Verified 02/21/17 20:17) iodine [Iodine] Allergy (Unknown, Verified 02/21/17 20:17) Shellfish * [Shellfish] Allergy (Verified 02/21/17 20:17) Past Medical History - Social History Smoking Status: Unknown if Ever Smoked Family History: COPD, Hyperlipidemia Patient has suicidal ideation: No Patient has homicidal ideation: No - Past Medical History Cardiac Medical History: Reports: Hx Coronary Artery Disease, Hx Heart Attack, Hx Hypertension Denies: Hx Atrial Fibrillation, Hx Congestive Heart Failure, Hx Hypercholesterolemia, Hx Peripheral Vascular Disease, Hx Pulmonary Embolism, Hx Heart Murmur Pulmonary Medical History: Reports: Hx COPD, Hx Pneumonia Denies: Hx Asthma, Hx Bronchitis, Hx Respiratory Failure, Hx Sleep Apnea, Hx Tuberculosis Neurological Medical History: Denies: Hx Cerebrovascular Accident, Hx Seizures Endocrine Medical History: Reports: Hx Hypothyroidism. Denies: Hx Graves' Disease, Hx Hyperthyroidism Renal/ Medical History: Denies: Hx End Stage Renal Disease, Hx Kidney Stones, Hx Peritoneal Dialysis Malignancy Medical History: Reports: Hx Breast Cancer. Denies: Hx Leukemia, Hx Lung Cancer GI Medical History: Reports: Hx Gastroesophageal Reflux Disease. Denies: Hx Crohn's Disease, Hx Hiatal Hernia, Hx Irritable Bowel, Hx Liver Failure, Hx Ulcer Musculoskeltal Medical History: Reports Hx Arthritis, Denies Hx Fibromyalgia, Denies Hx Multiple Sclerosis, Denies Hx Muscular Dystrophy Skin Medical History: Denies Hx MRSA Psychiatric Medical History: Reports: Hx Depression Denies: Hx Bipolar Disorder, Hx Dementia, Hx Post Traumatic Stress Disorder, Hx Schizophrenia Traumatic Medical History: Reports: Hx Fractures - nose Infectious Medical History: Denies: Hx HIV Past Surgical History: Reports: Hx Appendectomy, Hx Cardiac Catheterization - stent x 2, Hx Cholecystectomy, Hx Mastectomy, Hx Tubal Ligation. Denies: Hx Bowel Surgery, Hx Section, Hx Colostomy, Hx Coronary Artery Bypass Graft, Hx Gastric Bypass Surgery, Hx Herniorrhaphy, Hx Hysterectomy, Hx Pacemaker, Hx Tonsillectomy - Immunizations Hx Diphtheria, Pertussis, Tetanus Vaccination: No Hx Pneumococcal Vaccination: 08/30/11 Review of Systems - Review of Systems Constitutional: Other - Low H&H EENT: No symptoms reported Cardiovascular: No symptoms reported Respiratory: No symptoms reported Gastrointestinal: No symptoms reported Genitourinary: No symptoms reported Female Genitourinary: No symptoms reported Musculoskeletal: No symptoms reported Skin: No symptoms reported Hematologic/Lymphatic: No symptoms reported Neurological/Psychological: No symptoms reported Physical Exam - Vital signs Vitals: Temp Pulse Resp BP Pulse Ox 98 F 83 17 116/70 99 04/02/17 04:04/02/17 04:04/02/17 04:31 04/02/17 04:04/02/17 04:31 Interpretation: Normal - General General appearance: Appears well, Alert - HEENT Head: Normocephalic, Atraumatic Eyes: Normal Pupils: PERRL - Respiratory Respiratory status: No respiratory distress Chest status: Nontender Breath sounds: Normal Chest palpation: Normal - Cardiovascular Rhythm: Regular Heart sounds: Normal auscultation Murmur: No - Abdominal Inspection: Normal Distension: No distension Bowel sounds: Normal Tenderness: Nontender Organomegaly: No organomegaly - Rectal Stool: Heme positive, Other - Light brown stool Hemorrhoids: None Notes: Decubitus ulcer covered with dressing dressing looks to be intact no signs of blushing or purulent drainage - Back Back: Normal, Nontender - Extremities General upper extremity: Normal inspection, Nontender, Normal color, Normal ROM , Normal temperature General lower extremity: Normal inspection, Nontender, Normal color, Normal ROM , Normal temperature, Normal weight bearing. No: Joao's sign - Neurological Neuro grossly intact: Yes Cognition: Normal Orientation: AAOx4 [place] Coma Scale Eye Opening: Spontaneous Adan Coma Scale Verbal: Oriented Adan Coma Scale Motor: Obeys Commands Adan Coma Scale Total: 15 Speech: Normal Motor strength normal: LUE, RUE, LLE, RLE Sensory: Normal - Psychological Associated symptoms: Normal affect, Normal mood - Skin Skin Temperature: Warm Skin Moisture: Dry Skin Color: Normal Course - Re-evaluation Re-evalutation: 04/02/17 14:45 Patient's hemoglobin did return at less than 6. Transfusion was ordered. Rectal exam was performed revealing a light brown stool although the laboratory did with a Hemoccult card as positive. Unable to visualize cord however patient is very adamant that she has not had any abdominal pain or bloody or black stools. Patient did have a recent colonoscopy approximately 1 year ago did show some signs of gastric erosions patient states she has been compliant with her omeprazole that she takes. As it did not have any GI sales promotion director did discuss with the patient that she will need to be transferred to see a GI specialist. Patient at this time is refusing transfer. Patient is also refusing to be admitted to the hospital patient is requesting that she only receives blood and this should be sent back to the assisted. At this time vital signs are stable no signs of rapid tree blood. Feel this is an appropriate course. Patient was given 2 units repeat H&H showed increased greater than 10 patient was discharged home - Vital Signs Vital signs: Temp Pulse Resp BP Pulse Ox 97.8 F 92 16 132/83 H 100 04/02/17 14:15 04/02/17 08:07 04/02/17 14:15 04/02/17 14:15 04/02/17 14:15 - Laboratory Result Diagrams: 04/02/17 12:30 04/02/17 05:07 Laboratory results interpreted by me: 04/02/17 04/02/17 04/02/17 05:07 05:07 05:07 WBC 3.7 L RBC 1.68 L Hgb 5.4 L Hct 16.5 L MCV 98 H RDW 17.0 H Plt Count 97 L Retic Count (auto) 2.90 H Carbon Dioxide 34 H BUN 32 H Est GFR ( Amer) 53 L Est GFR (Non-Af Amer) 44 L Calcium 8.2 L Iron 34.1 L TIBC 179 L Ferritin 479.00 H Total Protein 5.1 L Albumin 2.4 L Crossmatch 04/02/17 04/02/17 05:07 12:30 WBC RBC 3.42 L Hgb 10.4 L D Hct 31.2 L MCV RDW 15.6 H Plt Count 82 L Retic Count (auto) Carbon Dioxide BUN Est GFR ( Amer) Est GFR (Non-Af Amer) Calcium Iron TIBC Ferritin Total Protein Albumin Crossmatch See Detail Critical Care Note - Critical Care Note Total time excluding time spent on procedures (mins): 35 Comments: Multiple evaluation patient requiring blood transfusions Discharge - Discharge Clinical Impression: Anemia requiring transfusions Condition: Good Disposition: HOME, SELF-CARE Additional Instructions: Elaborate today showed a hemoglobin of 5 with a repeat hemoglobin of 10 point 2 units of blood. Your examination of your rectal vault revealed light brown stool with small amount microscopic blood within. You were offered transportation to another hospital that has gastroenterology to further evaluate your anemia however at this time he refused transport and are requesting to follow-up as outpatient. Her vital signs have remained stable and I would highly recommend she have repeat laboratory studies in the next 24- 48 hours follow-up with your PCP and GI specialist
[2017-04-02 14:21] VITALS: BP 132/83
== END 2017-04-02 14:23 | disposition home or self-care (01) ==
LOC: ER 04:24
DX: D64.9 Anemia, unspecified (principal); R19.5 Other fecal abnormalities; R53.1 Weakness; L89.90 Pressure ulcer of unspecified site, unspecified stage; I10 Essential (primary) hypertension; I25.10 Atherosclerotic heart disease of native coronary artery without angina pectoris; I25.2 Old myocardial infarction; J44.9 Chronic obstructive pulmonary disease, unspecified; K21.9 Gastro-esophageal reflux disease without esophagitis; Z79.899 Other long term (current) drug therapy; Z88.2 Allergy status to sulfonamides; Z91.013 Allergy to seafood; Z85.3 Personal history of malignant neoplasm of breast; Z98.61 Coronary angioplasty status
CPT/HCPCS: 99285; 86900; 86901; 36415; 36430; 86850; 82607; 82728; 82746; 83540; 83550; 85025; 82272; 85045; 80053; 84466; 86920; P9016

== ENCOUNTER 2017-04-28 16:33 | Emergency (ER) | payer MEDICARE ==
--- NOTE | 2017-04-28 17:29 | RADIOLOGY REPORT (SQ) ---
EXAM DESCRIPTION: CHEST SINGLE VIEW COMPLETED DATE/TIME: 04/28/2017 5:14 pm REASON FOR STUDY: sob COMPARISON: 02/21/2017 EXAM PARAMETERS: NUMBER OF VIEWS: One view. TECHNIQUE: Single frontal radiographic view of the chest acquired. RADIATION DOSE: NA LIMITATIONS: None. FINDINGS: LUNGS AND PLEURA: No acute opacities, masses or pneumothorax. Emphysema. No pleural effu sanjuana. MEDIASTINUM AND HILAR STRUCTURES: Stable. HEART AND VASCULAR STRUCTURES: Stable. BONES: No acute findings. HARDWARE: None in the chest. OTHER: No other significant finding. IMPRESSION: NO ACUTE RADIOGRAPHIC FINDING IN THE CHEST. TECHNICAL DOCUMENTATION: JOB ID: [id number]
[2017-04-28 17:35] LABS: ABSOLUTE LYMPHOCYTES (AUTO) 1.4 10^3/uL (0.5-4.7); ABSOLUTE MONOCYTES (AUTO) 0.4 10^3/uL (0.1-1.4); ABSOLUTE NEUT (AUTO) 6.3 10^3/uL (1.7-8.2); BASOPHILS % (AUTO) 0.1 % (0-2); HEMATOCRIT 29.1 % (36.0-47.0); HEMOGLOBIN 9.6 g/dL (12.0-15.5); HGB HCT DIFFERENCE -0.3; MEAN CORPUSCULAR HEMOGLOBIN 31.2 pg (27.0-33.4); MEAN CORPUSCULAR HGB CONC 33.1 g/dL (32.0-36.0); MEAN CORPUSCULAR VOLUME 94 fl (80-97); MONOCYTES % (AUTO) 5.3 % (3-13); RED BLOOD COUNT 3.09 10^6/uL (3.72-5.28); RED CELL DISTRIBUTION WIDTH 15.8 % (11.5-14.0); SEGMENTED NEUTROPHILS % (AUTO) 77.6 % (42-78); WHITE BLOOD COUNT 8.1 10^3/uL (4.0-10.5)
[2017-04-28 18:08] LABS: ALANINE AMINOTRANSFERASE 40 U/L (9-52); ALBUMIN 3.3 g/dL (3.5-5.0); ALKALINE PHOSPHATASE 70 U/L (38-126); ANION GAP 9 (5-19); ASPARTATE AMINO TRANSFERASE 34 U/L (14-36); BILIRUBIN,DIRECT 0.4 mg/dL (0.0-0.4); BILIRUBIN,TOTAL 0.5 mg/dL (0.2-1.3); BLOOD UREA NITROGEN 33 mg/dL (7-20); CALCIUM 9.2 mg/dL (8.4-10.2); CARBON DIOXIDE 35 mmol/L (22-30); CHLORIDE 99 mmol/L (98-107); CREATININE RESULT 0.96 mg/dL (0.52-1.25); GLUCOSE 128 mg/dL (75-110); POTASSIUM 4.4 mmol/L (3.6-5.0); SODIUM 142.8 mmol/L (137-145); TOTAL PROTEIN 6.7 g/dL (6.3-8.2)
--- NOTE | 2017-04-28 18:43 | ER Document Report ---
ED Extremity Problem, Lower - General Chief Complaint: Leg Swelling Stated Complaint: FEET SWELLING Time Seen by Provider: 04/28/17 16:52 Mode of Arrival: Ambulatory Information source: Patient Notes: Patient reports several days of bilateral foot swelling and pain. She states her home health nurse suggested she come to the hospital. She does have a history of congestive heart failure but does not take any diuretics. She denies any recent injuries or fevers. The pain is constant. It is moderate. It radiates up both legs. It is worse when touched and better if left alone. She states her legs feel tight and ache. She denies any increase of shortness of breath or chest pain. TRAVEL OUTSIDE OF THE [place] IN LAST 30 DAYS: No - Related Data Allergies/Adverse Reactions: Sulfa (Sulfonamide Antibiotics) Allergy (Severe, Verified 02/21/17 20:17) iodine [Iodine] Allergy (Unknown, Verified 02/21/17 20:17) Shellfish * [Shellfish] Allergy (Verified 02/21/17 20:17) Past Medical History - General Information source: Patient - Social History Smoking Status: Former Smoker Frequency of alcohol use: None Drug Abuse: None Family History: Reviewed & Not Pertinent, COPD, Hyperlipidemia Patient has suicidal ideation: No Patient has homicidal ideation: No - Past Medical History Cardiac Medical History: Reports: Hx Coronary Artery Disease, Hx Heart Attack, Hx Hypertension Denies: Hx Atrial Fibrillation, Hx Congestive Heart Failure, Hx Hypercholesterolemia, Hx Peripheral Vascular Disease, Hx Pulmonary Embolism, Hx Heart Murmur Pulmonary Medical History: Reports: Hx COPD, Hx Pneumonia Denies: Hx Asthma, Hx Bronchitis, Hx Respiratory Failure, Hx Sleep Apnea, Hx Tuberculosis Neurological Medical History: Denies: Hx Cerebrovascular Accident, Hx Seizures Endocrine Medical History: Reports: Hx Hypothyroidism. Denies: Hx Graves' Disease, Hx Hyperthyroidism Renal/ Medical History: Denies: Hx End Stage Renal Disease, Hx Kidney Stones, Hx Peritoneal Dialysis Malignancy Medical History: Reports: Hx Breast Cancer. Denies: Hx Leukemia, Hx Lung Cancer GI Medical History: Reports: Hx Gastroesophageal Reflux Disease. Denies: Hx Crohn's Disease, Hx Hiatal Hernia, Hx Irritable Bowel, Hx Liver Failure, Hx Ulcer Musculoskeltal Medical History: Reports Hx Arthritis, Denies Hx Fibromyalgia, Denies Hx Multiple Sclerosis, Denies Hx Muscular Dystrophy Skin Medical History: Denies Hx MRSA Psychiatric Medical History: Reports: Hx Depression Denies: Hx Bipolar Disorder, Hx Dementia, Hx Post Traumatic Stress Disorder, Hx Schizophrenia Traumatic Medical History: Reports: Hx Fractures - nose Infectious Medical History: Denies: Hx HIV Past Surgical History: Reports: Hx Appendectomy, Hx Cardiac Catheterization - stent x 2, Hx Cholecystectomy, Hx Mastectomy, Hx Tubal Ligation. Denies: Hx Bowel Surgery, Hx Section, Hx Colostomy, Hx Coronary Artery Bypass Graft, Hx Gastric Bypass Surgery, Hx Herniorrhaphy, Hx Hysterectomy, Hx Pacemaker, Hx Tonsillectomy - Immunizations Hx Diphtheria, Pertussis, Tetanus Vaccination: No Hx Pneumococcal Vaccination: 08/30/11 Review of Systems - Review of Systems Constitutional: denies: Chills, Fever Cardiovascular: denies: Chest pain, Palpitations Respiratory: denies: Cough, Short of breath -: Yes All other systems reviewed and negative Physical Exam - Vital signs Vitals: Temp Pulse Resp BP Pulse Ox 98.7 F 85 20 130/68 H 96 04/28/17 16:42 04/28/17 16:42 04/28/17 16:42 04/28/17 16:42 04/28/17 16:42 Interpretation: Normal - General General appearance: Appears well, Alert - HEENT Head: Normocephalic, Atraumatic Eyes: Normal Pupils: PERRL - Respiratory Respiratory status: No respiratory distress Chest status: Nontender Breath sounds: Decreased air movement Chest palpation: Normal - Cardiovascular Rhythm: Regular Heart sounds: Normal auscultation Murmur: No - Abdominal Inspection: Normal Distension: No distension Bowel sounds: Normal Tenderness: Nontender Organomegaly: No organomegaly - Back Back: Normal, Nontender - Extremities General upper extremity: Normal inspection, Nontender, Normal color, Normal ROM , Normal temperature General lower extremity: Other - Patient has 3+ bilateral pitting edema of the feet and lower ankles. They are diffusely tender. However there is no erythema or warmth and there are no signs of infection. Patient can flex and extend all toes and they have appropriate color and temperature. No evidence of ischemia.. No: Joao's sign - Neurological Neuro grossly intact: Yes Cognition: Normal Orientation: AAOx4 Randolph Coma Scale Eye Opening: Spontaneous Adan Coma Scale Verbal: Oriented Randolph Coma Scale Motor: Obeys Commands Adan Coma Scale Total: 15 Speech: Normal Motor strength normal: LUE, RUE, LLE, RLE Sensory: Normal - Psychological Associated symptoms: Normal affect, Normal mood - Skin Skin Temperature: Warm Skin Moisture: Dry Skin Color: Normal Course - Vital Signs Vital signs: Temp Pulse Resp BP Pulse Ox 98.7 F 85 20 130/68 H 96 04/28/17 16:42 04/28/17 16:42 04/28/17 16:42 04/28/17 16:42 04/28/17 16:42 - Laboratory Result Diagrams: 04/28/17 17:00 04/28/17 17:00 Laboratory results interpreted by me: 04/28/17 04/28/17 04/28/17 17:00 17:00 17:00 RBC 3.09 L Hgb 9.6 L Hct 29.1 L RDW 15.8 H Plt Count 122 L Carbon Dioxide 35 H BUN 33 H Est GFR (Non-Af Amer) 59 L Glucose 128 H NT-Pro-B Natriuret Pep 5210 H Albumin 3.3 L - Diagnostic Test Radiology reviewed: Image reviewed, Reports reviewed - Chest x-ray shows no evidence of acute pathology. Discharge - Discharge Clinical Impression: Pedal edema Condition: Stable Disposition: HOME, SELF-CARE Instructions: Dependent Edema ([facility]), Edema, Peripheral ([facility]) Additional Instructions: Please call your doctor first thing in the morning. Let your doctor know that we prescribed you Lasix, 20 milligrams, to be taken twice each day. Prescriptions: Furosemide [Lasix 20 mg Tablet] 20 mg PO BID #30 tablet Potassium Citrate [Potassium Citrate ER] 10 meq PO DAILY #15 tablet.sa
[2017-04-28] MEDS ORDERED: FUROSEMIDE 20 MG TABLET PO ONE (18:44)
[2017-04-28 19:07] VITALS: BP 146/76
== END 2017-04-28 18:59 | disposition home or self-care (01) ==
LOC: ER 16:33
DX: R60.9 Edema, unspecified (principal); I50.9 Heart failure, unspecified; I25.10 Atherosclerotic heart disease of native coronary artery without angina pectoris; I11.0 Hypertensive heart disease with heart failure; Z88.2 Allergy status to sulfonamides; E03.9 Hypothyroidism, unspecified; Z91.013 Allergy to seafood; Z85.3 Personal history of malignant neoplasm of breast; Z90.49 Acquired absence of other specified parts of digestive tract; Z90.10 Acquired absence of unspecified breast and nipple; I25.2 Old myocardial infarction
CPT/HCPCS: 99284; 36415; 85025; 80053; 83880; 71010; A9270

== ENCOUNTER 2017-05-15 11:18 | Emergency (ER) | payer MEDICARE ==
[2017-05-15 12:03] LABS: ABSOLUTE EOSINOPHILS # (AUTO) 0.1 10^3/uL (0.0-0.6); ABSOLUTE LYMPHOCYTES (AUTO) 2.1 10^3/uL (0.5-4.7); ABSOLUTE MONOCYTES (AUTO) 0.7 10^3/uL (0.1-1.4); ABSOLUTE NEUT (AUTO) 5.7 10^3/uL (1.7-8.2); BASOPHILS % (AUTO) 0.4 % (0-2); EOSINOPHILS % (AUTO) 0.8 % (0-6); HEMOGLOBIN 10.6 g/dL (12.0-15.5); HGB HCT DIFFERENCE 0.8; LYMPHOCYTES % (AUTO) 24.7 % (13-45); MEAN CORPUSCULAR HEMOGLOBIN 31.9 pg (27.0-33.4); MEAN CORPUSCULAR HGB CONC 34.1 g/dL (32.0-36.0); MEAN CORPUSCULAR VOLUME 94 fl (80-97); MONOCYTES % (AUTO) 8.1 % (3-13); RED BLOOD COUNT 3.32 10^6/uL (3.72-5.28); RED CELL DISTRIBUTION WIDTH 16.2 % (11.5-14.0); WHITE BLOOD COUNT 8.6 10^3/uL (4.0-10.5)
[2017-05-15 12:20] LABS: ALANINE AMINOTRANSFERASE 61 U/L (9-52); ALBUMIN 3.6 g/dL (3.5-5.0); ALKALINE PHOSPHATASE 68 U/L (38-126); ANION GAP 11 (5-19); ASPARTATE AMINO TRANSFERASE 47 U/L (14-36); BILIRUBIN,DIRECT 0.4 mg/dL (0.0-0.4); BILIRUBIN,TOTAL 0.5 mg/dL (0.2-1.3); BLOOD UREA NITROGEN 25 mg/dL (7-20); CALCIUM 9.5 mg/dL (8.4-10.2); CARBON DIOXIDE 32 mmol/L (22-30); CHLORIDE 101 mmol/L (98-107); CREATINE KINASE 45 U/L (30-135); CREATININE RESULT 1.01 mg/dL (0.52-1.25); GLUCOSE 100 mg/dL (75-110); POTASSIUM 3.8 mmol/L (3.6-5.0); SODIUM 144.2 mmol/L (137-145)
[2017-05-15 12:33] LABS: CREATINE KINASE MB 1.55 ng/mL (<4.55); TROPONIN I 0.021 ng/mL
[2017-05-15 12:47] LABS: ARTERIAL BLOOD BASE EXCESS 6.6 mmol/L; ARTERIAL BLOOD O2 SATURATION 94.5 % (94-98)
--- NOTE | 2017-05-15 13:22 | RADIOLOGY REPORT (SQ) ---
EXAM DESCRIPTION: CHEST PA/LAT COMPLETED DATE/TIME: 05/15/2017 1:15 pm REASON FOR STUDY: diff breathing COMPARISON: 04/28/2017. NUMBER OF VIEWS: Two view. TECHNIQUE: Frontal and lateral radiographic views of the chest acquired. LIMITATIONS: None. FINDINGS: LUNGS AND PLEURA: No opacities, masses or pneumothorax. No pleural effusion. Attenuated bl ood vessels and flattened mannie-diaphragms. MEDIASTINUM AND HILAR STRUCTURES: No masses. No contour abnormalities. HEART AND VASCULAR STRUCTURES: Heart normal in size and contour. No evidence for failure. BONES: No acute findings. HARDWARE: Surgical clips. OTHER: No other significant finding. IMPRESSION: COPD. NO ACUTE RADIOGRAPHIC FINDING IN THE CHEST. TECHNICAL DOCUMENTATION: JOB ID: [id number] [employer]- All Rights Reserved
[2017-05-15 14:08] LABS: APPEARANCE,URINE SLIGHTLY-CLOUDY; BILIRUBIN,URINE NEGATIVE (NEGATIVE); GLUCOSE, URINE NEGATIVE (NEGATIVE); KETONES,URINE NEGATIVE (NEGATIVE); LEUKOCYTE ESTERASE,URINE NEGATIVE (NEGATIVE); NITRITE,URINE NEGATIVE (NEGATIVE); PROTEIN,URINE 100 mg/dL (NEGATIVE); URINE SPECIFIC GRAVITY 1.009; UROBILINOGEN,URINE NEGATIVE mg/dL (<2.0)
--- NOTE | 2017-05-15 14:17 | ER Document Report ---
ED General - General Chief Complaint: Shortness Of Breath Stated Complaint: DIFFICULTY BREATHING Time Seen by Provider: 05/15/17 11:31 Mode of Arrival: Medic Information source: Patient Notes: Patient presents emergency department with complaints of shortness of breath. Patient reports history of CHF, COPD. She reports that she uses home O2 3 L\ nasal cannula. She reports her symptoms started on worsened today. She reports she seemed better on Wednesday. She reported she used her inhaler and albuterol treatment without relief of symptoms. She reports exertional short of breath from getting out of bed to the bedside commode. She reports peripheral edema but reports it is better than normal. Denies cough fever vomiting diarrhea. Reports some chest pressure earlier today but it went right away. TRAVEL OUTSIDE OF THE [place] IN LAST 30 DAYS: No - HPI Onset: Other Onset/Duration: Persistent Quality of pain: No pain Associated symptoms: denies: Nonproductive cough, Productive cough, Diarrhea, Vomiting Exacerbated by: Walking Relieved by: Denies Similar symptoms previously: Yes Recently seen / treated by doctor: No - Related Data Allergies/Adverse Reactions: Sulfa (Sulfonamide Antibiotics) Allergy (Severe, Verified 02/21/17 20:17) iodine [Iodine] Allergy (Unknown, Verified 02/21/17 20:17) Shellfish * [Shellfish] Allergy (Verified 02/21/17 20:17) Past Medical History - General Information source: Patient - Social History Smoking Status: Former Smoker - quit 7 years ago Chew tobacco use (# tins/day): No Frequency of alcohol use: None Drug Abuse: None Lives with: Family Family History: CAD - family hx cad, COPD, Hyperlipidemia Patient has suicidal ideation: No Patient has homicidal ideation: No - Past Medical History Cardiac Medical History: Reports: Hx Coronary Artery Disease, Hx Heart Attack, Hx Hypertension Denies: Hx Atrial Fibrillation, Hx Congestive Heart Failure, Hx Hypercholesterolemia, Hx Peripheral Vascular Disease, Hx Pulmonary Embolism, Hx Heart Murmur Pulmonary Medical History: Reports: Hx COPD, Hx Pneumonia Denies: Hx Asthma, Hx Bronchitis, Hx Respiratory Failure, Hx Sleep Apnea, Hx Tuberculosis Neurological Medical History: Denies: Hx Cerebrovascular Accident, Hx Seizures Endocrine Medical History: Reports: Hx Hypothyroidism. Denies: Hx Graves' Disease, Hx Hyperthyroidism Renal/ Medical History: Denies: Hx End Stage Renal Disease, Hx Kidney Stones, Hx Peritoneal Dialysis Malignancy Medical History: Reports: Hx Breast Cancer. Denies: Hx Leukemia, Hx Lung Cancer GI Medical History: Reports: Hx Gastroesophageal Reflux Disease. Denies: Hx Crohn's Disease, Hx Hiatal Hernia, Hx Irritable Bowel, Hx Liver Failure, Hx Ulcer Musculoskeltal Medical History: Reports Hx Arthritis, Denies Hx Fibromyalgia, Denies Hx Multiple Sclerosis, Denies Hx Muscular Dystrophy Skin Medical History: Denies Hx MRSA Psychiatric Medical History: Reports: Hx Depression Denies: Hx Bipolar Disorder, Hx Dementia, Hx Post Traumatic Stress Disorder, Hx Schizophrenia Traumatic Medical History: Reports: Hx Fractures - nose Infectious Medical History: Denies: Hx HIV Past Surgical History: Reports: Hx Appendectomy, Hx Cardiac Catheterization - stent x 2, Hx Cholecystectomy, Hx Mastectomy, Hx Tubal Ligation. Denies: Hx Bowel Surgery, Hx Section, Hx Colostomy, Hx Coronary Artery Bypass Graft, Hx Gastric Bypass Surgery, Hx Herniorrhaphy, Hx Hysterectomy, Hx Pacemaker, Hx Tonsillectomy - Immunizations Hx Diphtheria, Pertussis, Tetanus Vaccination: No Hx Pneumococcal Vaccination: 08/30/11 Review of Systems - Review of Systems Notes: Review HPI for review of systems., All other systems negative Physical Exam - Vital signs Vitals: Temp Resp Pulse Ox 97.7 F 14 100 05/15/17 11:30 05/15/17 11:30 05/15/17 11:30 - General General appearance: Alert. No: Anxious In distress: None - HEENT Head: Normocephalic Eyes: Normal Conjunctiva: Normal Extraocular movements intact: Yes Mouth/Lips: Normal Mucous membranes: Normal Neck: Normal, Supple - Respiratory Respiratory status: No respiratory distress. No: Cyanosis, Depressed respirations, Retractions, Tachypnea Chest status: Nontender Breath sounds: Decreased air movement Chest palpation: Normal. No: Flail segment - Cardiovascular Rhythm: Regular Heart sounds: Normal auscultation Murmur: No - Abdominal Inspection: Normal Distension: No distension Bowel sounds: Normal Tenderness: Nontender Organomegaly: No organomegaly - Back Back: Normal, Nontender - Extremities General upper extremity: Normal ROM General lower extremity: Edema, Normal ROM Ankle: Edema Foot: Edema - +2-3 - Neurological Neuro grossly intact: Yes Cognition: Normal Orientation: AAOx4 Adan Coma Scale Eye Opening: Spontaneous Adan Coma Scale Verbal: Oriented Baker Coma Scale Motor: Obeys Commands Adan Coma Scale Total: 15 Speech: Normal Cranial nerves: Normal Cerebellar coordination: Normal 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 Patient is she is normally short of breath walking around. Upon resting back in bed patient heart rate went to 97 O2 sat went to 100%. Patient was instructed on all labs which are indeterminant BNP is lower than normal. ABG better than normal. Patient chest x -ray shows COPD. Cardiac enzymes negative. Patient was instructed on discharge home continue taking medications and neb treatments as prescribed. Patient was also instructed to follow-up with her primary care provider Wednesday. Dr. Jason was consulted and agrees with plan of care. 05/15/17 15:02 pt reports she feels great, declines neb treatment before discharge since she has neb tx q4 hours as needed. She reports she doesn't need one. Pt instructed to return to ED for return of SOB, concerns - Vital Signs Vital signs: Temp Pulse Resp BP Pulse Ox 98.3 F 13 143/94 H 100 05/15/17 14:49 05/15/17 14:49 05/15/17 14:49 05/15/17 14:49 - Laboratory Result Diagrams: 05/15/17 11:29 05/15/17 11:29 Laboratory results interpreted by me: 05/15/17 05/15/17 05/15/17 11:29 11:29 11:29 RBC 3.32 L Hgb 10.6 L Hct 31.0 L RDW 16.2 H Carbonic Acid ABG pCO2 ABG pO2 ABG HCO3 ABG Total CO2 Carbon Dioxide 32 H BUN 25 H Est GFR (Non-Af Amer) 56 L AST 47 H ALT 61 H NT-Pro-B Natriuret Pep 2780 H Urine Protein 05/15/17 05/15/17 12:12 13:45 RBC Hgb Hct RDW Carbonic Acid 1.40 H ABG pCO2 46.4 H ABG pO2 69.6 L ABG HCO3 31.5 H ABG Total CO2 32.9 H Carbon Dioxide BUN Est GFR (Non-Af Amer) AST ALT NT-Pro-B Natriuret Pep Urine Protein 100 H - Diagnostic Test Radiology reviewed: Image reviewed, Reports reviewed - copd Discharge - Discharge Clinical Impression: Difficulty breathing COPD (chronic obstructive pulmonary disease) Qualifiers: COPD type: unspecified COPD Qualified Code(s): J44.9 - Chronic obstructive pulmonary disease, unspecified CHF (congestive heart failure) Qualifiers: Congestive heart failure type: unspecified congestive heart failure type Congestive heart failure chronicity: chronic Qualified Code(s): I50.9 - Heart failure, unspecified Condition: Stable Disposition: HOME, SELF-CARE Instructions: Chronic Obstructive Lung Disease ([facility]), Congestive Heart Failure ([facility]) Additional Instructions: *You have been evaluated for shortness of breath, COPD, chronic CHF *Take your medications as prescribed, use your inhaler and neb treatments as prescribed *Increase fluids *Continue home 02 as prescribed *Follow up with your primary care provider Wednesday *Return to ED for increasing fever, cough, worsening condition, changes, needs Forms: Elevated Blood Pressure, Parent Work Note
[2017-05-15 14:59] VITALS: BP 143/94
--- NOTE | 2017-05-15 22:03 | EKG REPORT ---
SEVERITY:- ABNORMAL ECG - SINUS TACHYCARDIA VENTRICULAR PREMATURE COMPLEXES LEFT VENTRICULAR HYPERTROPHY NONSPECIFIC T ABNORMALITIES, INFERIOR LEADS : Confirmed by: Angel Bauer 15-May-2017 22:02:56
== END 2017-05-15 14:59 | disposition home or self-care (01) ==
LOC: ER 11:18
DX: J44.9 Chronic obstructive pulmonary disease, unspecified (principal); I50.9 Heart failure, unspecified; Z87.891 Personal history of nicotine dependence; Z99.81 Dependence on supplemental oxygen
CPT/HCPCS: 36415; 36600; 71020; 80053; 81001; 82550; 82553; 82803; 83880; 84484; 85025; 93005; 93010; 99285

== ENCOUNTER 2017-05-25 13:37 | Outpatient (CLI) | payer MEDICARE ==
[2017-05-25 13:31] LABS: HEMATOCRIT 27.3 % (36.0-47.0); HEMOGLOBIN 9.2 g/dL (12.0-15.5); HGB HCT DIFFERENCE 0.3; MEAN CORPUSCULAR HEMOGLOBIN 31.2 pg (27.0-33.4); MEAN CORPUSCULAR HGB CONC 33.5 g/dL (32.0-36.0); MEAN CORPUSCULAR VOLUME 93 fl (80-97); RED BLOOD COUNT 2.94 10^6/uL (3.72-5.28); RED CELL DISTRIBUTION WIDTH 14.4 % (11.5-14.0); WHITE BLOOD COUNT 3.8 10^3/uL (4.0-10.5)
[2017-05-25 13:53] VITALS: BP 112/62
[2017-05-25] MEDS ORDERED: EPOETIN ALFA 30,000 UNIT in SYRINGE, DISPOSABLE, 1 EACH SUBCUT ONE (14:00)
[2017-05-26] MEDS ORDERED: EPOETIN ALFA 30,000 UNIT in SYRINGE, DISPOSABLE, 1 EACH SUBCUT PRN (14:00)
== END 2017-05-25 14:22 | disposition home or self-care (01) ==
LOC: II 13:37 → 5TH 13:40 → II 14:22
PROVIDERS: ATTEND Internal Medicine
PROC: 3E013GC Introduction of Other Therapeutic Substance into Subcutaneous Tissue, Percutaneous Approach (ICD-10-PCS; principal; 2017-05-25)
DX: N18.4 Chronic kidney disease, stage 4 (severe) (principal); D63.1 Anemia in chronic kidney disease
CPT/HCPCS: 96372; 36415; 85027; Q4081; J3490

== ENCOUNTER 2017-06-22 10:36 | Outpatient (CLI) | payer MEDICARE ==
[~2017-06-22 10:36] MED LIST: EPOETIN ALFA 30,000 UNIT in SYRINGE, DISPOSABLE, 1 EACH SUBCUT PRN
[2017-06-22 11:12] LABS: HEMATOCRIT 32.6 % (36.0-47.0); HGB HCT DIFFERENCE 0.4; MEAN CORPUSCULAR HEMOGLOBIN 30.7 pg (27.0-33.4); MEAN CORPUSCULAR HGB CONC 33.8 g/dL (32.0-36.0); MEAN CORPUSCULAR VOLUME 91 fl (80-97); RED CELL DISTRIBUTION WIDTH 14.3 % (11.5-14.0); WHITE BLOOD COUNT 4.8 10^3/uL (4.0-10.5)
[2017-06-22 11:22] VITALS: BP 141/83
== END 2017-06-22 11:31 | disposition home or self-care (01) ==
LOC: II 10:36 → 5TH 11:05 → II 11:31
PROVIDERS: ATTEND Internal Medicine
DX: N18.4 Chronic kidney disease, stage 4 (severe) (principal); D63.1 Anemia in chronic kidney disease
CPT/HCPCS: 36415; 85027; J3490; Q4081

== ENCOUNTER 2017-11-06 20:07 | Inpatient (IN) | payer MEDICARE ==
[2017-11-06] MEDS ORDERED: IPRATROPIUM/ALBUTEROL 0.5-2.5 MG/3 ML AMPUL NEB ONE ×2 (20:12→20:16)
[2017-11-06] MEDS ORDERED: PREDNISONE 20 MG TABLET PO ONE ×2 (20:12→20:16)
--- NOTE | 2017-11-06 20:36 | ER Document Report ---
ED General - General Stated Complaint: DIFFICULTY BREATHING Time Seen by Provider: 11/06/17 20:12 Notes: 62-year-old female with a history of CHF and COPD on home oxygen presents with acute onset shortness of breath 2 hours ago, nebulizers were not helping so she called 911. She also had some left-sided chest pain earlier today which she cannot well defined. She has had fever and was febrile for EMS. They gave her some neb laser treatments could not get an IV and brought her here. She has some cough and fever lately as well. TRAVEL OUTSIDE OF THE [place] IN LAST 30 DAYS: No - Related Data Allergies/Adverse Reactions: Sulfa (Sulfonamide Antibiotics) Allergy (Severe, Verified 02/21/17 20:17) iodine [Iodine] Allergy (Unknown, Verified 02/21/17 20:17) Shellfish * [Shellfish] Allergy (Verified 02/21/17 20:17) Past Medical History - Social History Smoking Status: Former Smoker Family History: CAD - family hx cad, COPD, Hyperlipidemia - Past Medical History Cardiac Medical History: Reports: Hx Coronary Artery Disease, Hx Heart Attack, Hx Hypertension Denies: Hx Atrial Fibrillation, Hx Congestive Heart Failure, Hx Hypercholesterolemia, Hx Peripheral Vascular Disease, Hx Pulmonary Embolism, Hx Heart Murmur Pulmonary Medical History: Reports: Hx COPD, Hx Pneumonia Denies: Hx Asthma, Hx Bronchitis, Hx Respiratory Failure, Hx Sleep Apnea, Hx Tuberculosis Neurological Medical History: Denies: Hx Cerebrovascular Accident, Hx Seizures Endocrine Medical History: Reports: Hx Hypothyroidism. Denies: Hx Graves' Disease, Hx Hyperthyroidism Renal/ Medical History: Denies: Hx End Stage Renal Disease, Hx Kidney Stones, Hx Peritoneal Dialysis Malignancy Medical History: Reports: Hx Breast Cancer. Denies: Hx Leukemia, Hx Lung Cancer GI Medical History: Reports: Hx Gastroesophageal Reflux Disease. Denies: Hx Crohn's Disease, Hx Hiatal Hernia, Hx Irritable Bowel, Hx Liver Failure, Hx Pancreatitis, Hx Ulcer Musculoskeltal Medical History: Reports Hx Arthritis, Denies Hx Fibromyalgia, Denies Hx Multiple Sclerosis, Denies Hx Muscular Dystrophy Skin Medical History: Denies Hx MRSA Psychiatric Medical History: Reports: Hx Depression Denies: Hx Bipolar Disorder, Hx Dementia, Hx Post Traumatic Stress Disorder, Hx Schizophrenia Traumatic Medical History: Reports: Hx Fractures - nose Infectious Medical History: Denies: Hx HIV Past Surgical History: Reports: Hx Appendectomy, Hx Cardiac Catheterization - stent x 2, Hx Cholecystectomy, Hx Mastectomy, Hx Tubal Ligation. Denies: Hx Bowel Surgery, Hx Section, Hx Colostomy, Hx Coronary Artery Bypass Graft, Hx Gastric Bypass Surgery, Hx Herniorrhaphy, Hx Hysterectomy, Hx Pacemaker, Hx Tonsillectomy - Immunizations Hx Diphtheria, Pertussis, Tetanus Vaccination: No Hx Pneumococcal Vaccination: 08/30/11 Review of Systems - Review of Systems Notes: REVIEW OF SYSTEMS GEN: D fever and chills ENT: Denies sore throat, nasal discharge, ear pain EYES: Denies blurry vision, eye pain, discharge CV: Denies chest pain, palpitations, edema RESP: Breath cough wheezing GI: Denies abdominal pain, nausea, vomiting, diarrhea MSK: Denies joint pain/swelling, edema, SKIN: Denies rash, skin lesions LYMPH: Denies swollen glands/lymph nodes NEURO: Denies headache, focal weakness or numbness, dizziness PSYCH: Denies depression, suicidal or homicidal ideation PHYSICAL EXAMINATION General: No acute distress, well-nourished Head: Atraumatic, normocephalic ENT: Mouth normal, oropharynx moist, no exudates or tonsillar enlargement Eyes: Conjunctiva normal, pupils equal, lids normal Neck: No JVD, supple, no guarding CVS: Normal rate, regular rhythm, no murmurs Resp: Acute respiratory distress prolonged expiratory phase, tachypneic with accessory muscle use. Diminished bilaterally. GI: Nondistended, soft, no tenderness to palpation, no rebound or guarding Ext: No deformities, no edema, normal range of motion in upper and lower ext Back: No CVA or midline TTP Skin: No rash, warm Lymphatic: No lymphadeopathy noted Neuro: Awake, alert. Face symmetric. GCS 15. Physical Exam - Vital signs Vitals: Resp Pulse Ox 15 97 11/06/17 20:16 11/06/17 20:16 Course - Re-evaluation Re-evalutation: 11/06/17 20:35 62-year-old lady with cardiac and pulmonary disease presenting with acute shortness of breath and hypoxic respiratory failure. She has no crackles or leg edema I think her presentation is most consistent with COPD flare plus or minus pneumonia and sepsis. She will be observed carefully on BiPAP, will draw sepsis labs, do EKG troponin and BNP to rule out acute coronary syndrome. Reassessed at 8:35 PM. Comfortable on BiPAP with a normal saturation. ECG today shows changes consistent with LVH versus ischemia with asymmetric T-wave inversions in leads V3 through V6 not present on prior, very tall R waves in the lateral precordium and no ST elevation. Troponin will be pending. 11/06/17 21:25 Reassessed at about 9:10 PM. Patient is feeling better on BiPAP. Respiratory rate has slowed down. X-ray shows possible left lower lobe pneumonia. Treated with ceftriaxone and doxy at this time. Chemistry is pending. Troponin is pending. Added empiric Tamiflu. 11/06/17 21:56 Reassessed. Feeling better. We will try to wean to nasal cannula. BNP is returned and is grossly elevated so we will add Lasix to her regimen. Her troponin is negative. Discussed with Dr. Esteban for admission to [facility]. - Vital Signs Vital signs: Temp Pulse Resp BP Pulse Ox 15 97 11/06/17 20:16 11/06/17 20:16 - Laboratory Result Diagrams: 11/06/17 21:00 11/06/17 21:00 Laboratory results interpreted by me: 11/06/17 11/06/17 11/06/17 21:00 21:00 21:00 RBC 2.64 L Hgb 8.1 L Hct 24.2 L Plt Count 129 L Chloride 97 L Carbon Dioxide 35 H BUN 21 H Est GFR (Non-Af Amer) 59 L Glucose 129 H NT-Pro-B Natriuret Pep 20849 H - Diagnostic Test Radiology reviewed: Image reviewed, Reports reviewed - EKG Interpretation by Ak EKG shows normal: Sinus rhythm Rate: Normal Rhythm: NSR Scobey/QRS: LBBB Voltage: Increased voltage Critical Care Note - Critical Care Note Total time excluding time spent on procedures (mins): 35 Comments: The above patient is critically ill. Not including procedures, but including direct re-evaluations, speaking with patient and/or consultants, interpreting results, and documenting, I spent the total amount of minute listed listed above on critical care time Discharge - Discharge Clinical Impression: COPD exacerbation, Respiratory distress Acute exacerbation of congestive heart failure Qualifiers: Heart failure type: diastolic Qualified Code(s): I50.33 - Acute on chronic diastolic (congestive) heart failure Condition: Critical Disposition: ADMITTED INPATIENT Admitting Provider: Hospitalist Unit Admitted: [facility]
[2017-11-06] MEDS ORDERED: OSELTAMIVIR PHOSPHATE 75 MG CAPSULE PO ONE (20:44)
--- NOTE | 2017-11-06 21:07 | RADIOLOGY REPORT (SQ) ---
EXAM DESCRIPTION: CHEST SINGLE VIEW COMPLETED DATE/TIME: 11/06/2017 8:46 pm REASON FOR STUDY: SOB COMPARISON: 05/15/2017 NUMBER OF VIEWS: One view. TECHNIQUE: Single frontal radiographic view of the chest acquired. LIMITATIONS: None. FINDINGS: LUNGS AND PLEURA: Ill-defined airspace opacities are seen of the left lower lobe. No mass es or pneumothorax. No pleural effusion. Attenuated blood vessels and flattened mannie-diaphragms. MEDIASTINUM AND HILAR STRUCTURES: No masses. Contour normal. HEART AND VASCULAR STRUCTURES: Heart normal in size. Normal vasculature. BONES: No acute findings. HARDWARE: Surgical clips are seen within the left axilla. OTHER: No other significant finding. IMPRESSION: In the appropriate clinical setting, findings are consistent with a developing left lowe r lobe pneumonia. Background of COPD. TECHNICAL DOCUMENTATION: JOB ID: [id number] [employer]- All Rights Reserved Reading location - IP/workstation name: [email or web address]
[2017-11-06 21:14] LABS: ABSOLUTE EOSINOPHILS # (AUTO) 0.1 10^3/uL (0.0-0.6); ABSOLUTE LYMPHOCYTES (AUTO) 1.6 10^3/uL (0.5-4.7); ABSOLUTE MONOCYTES (AUTO) 0.4 10^3/uL (0.1-1.4); ABSOLUTE NEUT (AUTO) 4.7 10^3/uL (1.7-8.2); BASOPHILS % (AUTO) 0.2 % (0-2); EOSINOPHILS % (AUTO) 1.3 % (0-6); HEMATOCRIT 24.2 % (36.0-47.0); HEMOGLOBIN 8.1 g/dL (12.0-15.5); LYMPHOCYTES % (AUTO) 24.1 % (13-45); MEAN CORPUSCULAR HEMOGLOBIN 30.7 pg (27.0-33.4); MEAN CORPUSCULAR HGB CONC 33.6 g/dL (32.0-36.0); MEAN CORPUSCULAR VOLUME 91 fl (80-97); MONOCYTES % (AUTO) 5.3 % (3-13); PLATELET COUNT 129 10^3/uL (150-450); RED BLOOD COUNT 2.64 10^6/uL (3.72-5.28); RED CELL DISTRIBUTION WIDTH 13.4 % (11.5-14.0); SEGMENTED NEUTROPHILS % (AUTO) 69.1 % (42-78); TOTAL CELLS COUNTED % (AUTO) 100 %; WHITE BLOOD COUNT 6.8 10^3/uL (4.0-10.5)
[2017-11-06] MEDS ORDERED: DOXYCYCLINE HYCLATE 100 MG TABLET PO ONE (21:16)
[2017-11-06] MEDS ORDERED: CEFTRIAXONE 1 GM/D5W RTU 1 GM/50 ML RTUPB IV ONE (21:16)
[2017-11-06 21:39] LABS: ANION GAP 8 (5-19); BLOOD UREA NITROGEN 21 mg/dL (7-20); CARBON DIOXIDE 35 mmol/L (22-30); CHLORIDE 97 mmol/L (98-107); GLUCOSE 129 mg/dL (75-110); POTASSIUM 4.7 mmol/L (3.6-5.0); SODIUM 139.7 mmol/L (137-145)
[2017-11-06 21:51] LABS: TROPONIN I 0.024 ng/mL
[2017-11-06] MEDS ORDERED: CEFTRIAXONE INJ 1000 MG VIAL ONE (21:52)
[2017-11-06] MEDS ORDERED: FUROSEMIDE INJ/PF 40 MG/4 ML SDV IV ONE (21:54)
[2017-11-06] MEDS ORDERED: DOCUSATE SODIUM 100 MG/10 ML UDC PO PRN (22:13)
[2017-11-06] MEDS ORDERED: PROMETHAZINE HCL INJ 25 MG/1 ML VIAL IV PRN (22:13)
[2017-11-06] MEDS ORDERED: ACETAMINOPHEN 325 MG TABLET PO PRN (22:13)
[2017-11-06] MEDS ORDERED: ALBUTEROL SULFATE 0.083% NEB 2.5 MG/3 ML AMPUL NEB PRN (22:13)
[2017-11-07] MEDS ORDERED: NITROGLYCERIN 0.4 MG/TAB 25 TAB/BOTTLE SL PRN (00:56)
[2017-11-07] MEDS ORDERED: INFLUENZA ADLT QUAD (36MOS+) 2017-18 VAC 0.5 ML SYR IM PRN (01:16)
--- NOTE | 2017-11-07 01:19 | PDOC H&P ---
History of Present Illness Admission Date/PCP: BLANCA GRIDER DO Patient complains of: Worsening shortness of breath since yesterday. History of Present Illness: LAURYN PETTY is a 62 year old cachectic female with history of CAD/CHF, SLE and COPD (on 3 L home oxygen and BiPAP at night and as needed) was admitted with above-mentioned complaints. According to the patient, she started having worsening shortness of breath last night which seemed to improve after she used her BiPAP machine. But this morning, she apparently started having some chest pain which she describes as stabbing, lasting for 10-15 minutes with no associated symptoms. She took one baby aspirin which relieved the pain. And around 7 PM, she again started having shortness of breath so she used her nebulizer machine 4 times in addition to her BiPAP with no resolution of her symptoms. She called EMS and she was given 1 more breathing treatment en route to the hospital. She complained of undocumented fever yesterday, no chills, cough or any sputum or sick contact. She also said that she felt nauseous and was having uncontrollable sneezing and runny nose but no sore throat. According to the ED physician, EMS reported that she was febrile. Of note, the patient mentioned that she noticed her blood pressure was elevated last week so she called her ground crew lines person who changed her medications. She said that her Toprol-XL was increased from 75 mg daily to 100 mg daily and Lisinopril was added but it didn't really control her BP. She also said that her Lasix has been DC'd earlier this month after resolution of her leg edema, and that she has been drinking more fluids lately. In the ED, her temperature was 98.0, heart rate 86, respiratory rate 19, blood pressure 157/95 with oxygen saturation 93% on BiPAP at 40%. Her WBC was 6.8 with hemoglobin of 8.1. Her troponin was 0.024 [place] [address]. A chest x -ray was done which showed COPD and developing left lower lobe pneumonia. She received 2 DuoNeb treatments, 1 g ceftriaxone x1, 100 mg doxy x1, 75 mg Tamiflu 1, prednisone 40 mg 1 and 40 mg IV Lasix 1 (she has not diuresed yet). Past Medical History Cardiac Medical History: Reports: Coronary Artery Disease, Myocardial Infarction , Hypertension Denies: Atrial Fibrillation, Congestive Heart Failure, Hyperlipidema, Peripheral Vascular Disease, Pulmonary Embolism, Heart Murmur Pulmonary Medical History: Reports: Chronic Obstructive Pulmonary Disease (COPD ) - on 3l home oxygen and BIPAP at night and as needed., Pneumonia Denies: Asthma, Bronchitis, Respiratory Failure, Sleep Apnea, Tuberculosis EENT Medical History: Reports: Other - glaucoma, blind in left eye. Neurological Medical History: Denies: Seizures Endocrine Medical History: Reports: Hypothyroidism Denies: Hyperthyroidism Renal/ Medical History: Denies: End Stage Renal Disease Malignancy Medical History: Reports: Breast Cancer Denies: Leukemia, Lung Cancer GI Medical History: Reports: Gastroesophageal Reflux Disease Denies: Crohn's Disease, Hiatal Hernia Musculoskeltal Medical History: Reports: Arthritis, Other - SLE Denies: Fibromyalgia Psychiatric Medical History: Reports: Depression Denies: Bipolar Disorder, Dementia, Post Traumatic Stress Disorder Hematology: Reports: Anemia Denies: Hemophilia, Sickle Cell Disease Infectious Medical History: Denies: HIV Past Surgical History Past Surgical History: Reports: Appendectomy, Cardiac Catheterization - stent x 2, Cholecystectomy, Mastectomy - right mastectomy, post chemo., Tubal Ligation Denies: Amputation, Section, Colostomy, Coronary Artery Bypass Graft , Gastric Bypass Surgery, Herniorrhaphy, Hysterectomy, Pacemaker, Tonsillectomy Social History Smoking Status: Former Smoker Cigarettes Packs Per Day: 0 - Used to smoke half a pack a day for 30 years. She quit in 2010. Frequency of Alcohol Use: None Hx Recreational Drug Use: No Hx Prescription Drug Abuse: No - Advance Directive Resuscitation Status: Full Code Family History Family History: CAD - family hx cad, COPD, Hyperlipidemia Parental Family History Reviewed: Yes - Mother CAD/diabetes. Father: MA. Sister/brother: Diabetes. Children Family History Reviewed: No Sibling(s) Family History Reviewed.: Yes Medication/Allergy Home Medications: Albuterol Sulfate [Ventolin Hfa] 2 puff IH Q4HP PRN 02/21/17 Amlodipine Besylate 5 mg PO DAILY 02/21/17 Aspirin [Aspirin 81 mg Chewable Tablet] 81 mg PO DAILY 02/21/17 Budesonide/Formoterol Fumarate [Symbicort 160-4.5 Mcg Inhaler] 2 puff IH BID Cholecalciferol (Vitamin D3) [Vitamin D3] 1,000 units PO DAILY 02/21/17 Isosorbide Mononitrate [Imdur 30 mg Tablet.er] 30 mg PO QPM 02/21/17 Metoprolol Succinate [Toprol Xl] 50 mg PO DAILY 02/21/17 Omeprazole 40 mg PO DAILY 02/21/17 Ondansetron HCl [Zofran 4 mg Tablet] 4 mg PO Q4HP PRN 02/21/17 Pravastatin Sodium 10 mg PO DAILY 02/21/17 Tiotropium [place] [Spiriva Handihaler 5 Cap/Kit (18 Mcg/Cap)] 18 mcg IH DAILY 02/21/17 Folic Acid/Vitamin B Comp W-C [Nephrocaps Multiple Vitamin Capsule] 1 cap PO WSUPPER 02/22/17 Losartan Potassium [Cozaar 25 mg Tablet] 25 mg PO DAILY 02/22/17 Nitroglycerin [Nitrostat] 0.4 mg SL Q5MP PRN 02/22/17 Furosemide [Lasix 20 mg Tablet] 20 mg PO BID #30 tablet 04/28/17 Allergies/Adverse Reactions: Sulfa (Sulfonamide Antibiotics) Allergy (Severe, Verified 02/21/17 20:17) iodine [Iodine] Allergy (Unknown, Verified 02/21/17 20:17) Shellfish * [Shellfish] Allergy (Verified 02/21/17 20:17) Review of Systems ROS unobtainable: Other - Pertinent positives and negatives as detailed in the HPI. The patient denied any abdominal pain, diarrhea or constipation or any urinary symptoms. She had generalized weakness. She is ambulatory using a walker. Physical Exam Vital Signs: Temp Pulse Resp BP Pulse Ox 15 97 11/06/17 20:16 11/06/17 20:16 General appearance: PRESENT: no acute distress - on BIPAP., thin Head exam: PRESENT: atraumatic, normocephalic Eye exam: PRESENT: PERRLA - right eye., other - left eye blindness. Mouth exam: PRESENT: other - Wearing BIPAP mask. Neck exam: PRESENT: full ROM, JVD Respiratory exam: PRESENT: decreased breath sounds. ABSENT: rales, rhonchi, wheezes Cardiovascular exam: PRESENT: RRR, +S1, +S2 Pulses: PRESENT: normal dorsalis pedis pul GI/Abdominal exam: PRESENT: normal bowel sounds, soft. ABSENT: distended, rebound, tenderness Rectal exam: PRESENT: deferred Extremities exam: PRESENT: full ROM. ABSENT: pedal edema Neurological exam: PRESENT: alert, altered, awake, oriented to situation Skin exam: PRESENT: dry, warm. ABSENT: erythema, rash Results Laboratory Results: 11/06/17 21:00 11/06/17 21:00 11/06/17 11/06/17 21:00 21:00 WBC 6.8 RBC 2.64 L Hgb 8.1 L Hct 24.2 L MCV 91 MCH 30.7 MCHC 33.6 RDW 13.4 Plt Count 129 L Seg Neutrophils % 69.1 Lymphocytes % 24.1 Monocytes % 5.3 Eosinophils % 1.3 Basophils % 0.2 Absolute Neutrophils 4.7 Absolute Lymphocytes 1.6 Absolute Monocytes 0.4 Absolute Eosinophils 0.1 Absolute Basophils 0.0 Sodium 139.7 Potassium 4.7 Chloride 97 L Carbon Dioxide 35 H Anion Gap 8 BUN 21 H Creatinine 0.96 Est GFR ( Amer) > 60 Est GFR (Non-Af Amer) 59 L Glucose 129 H Calcium 9.0 11/06/17 21:00 Troponin I 0.024 NT-Pro-B Natriuret Pep 41774 H EKG Comments: EKG, sinus rhythm ventricular rate 90, axis +60, QTC prolongation, LVH, no acute changes. Similar when compared to previous 12-lead EKG done on 05/15/2017. Impressions: Chest X-Ray 11/06/17 20:15 IMPRESSION: In the appropriate clinical setting, findings are consistent with a developing left lower lobe pneumonia. Background of COPD. Assessment & Plan - Diagnosis (1) Acute and chronic respiratory failure with hypoxia Is this a current diagnosis for this admission?: Yes Plan: Given tachypnea and hypoxia requiring BiPAP at 100% per ED physician. It's multifactorial secondary to acute on chronic CHF, NYHA 4 (unspecified type at this time)/flash pulmonary edema, possible COPD exacerbation and/or pneumonia. Chest x-ray reviewed. Management as detailed below. (2) Acute exacerbation of congestive heart failure Qualifiers: Heart failure type: unspecified Qualified Code(s): I50.9 - Heart failure, unspecified Is this a current diagnosis for this admission?: Yes Plan: NYHA IV. Will continue to cycle cardiac enzymes and check echocardiogram in a.m. Will also repeat a chest x-ray PA/lateral in a.m. for comparison. We will start 20 mg IV Lasix twice daily with strict I's and O's. (3) COPD exacerbation Is this a current diagnosis for this admission?: Yes Plan: Possible. CXR reviewed. According to the patient, her breathing usually improves with nebulizer treatments and BiPAP when she has COPD exacerbation but not this time. Will check VBG on current BiPAP settings (/, 40%) and continue scheduled DuoNebs. Will restart her inhaled steroid and avoid Solu- Medrol at this time since she is not wheezing. Will also start Levaquin (4) LLL pneumonia Qualifiers: Pneumonia type: due to unspecified organism Qualified Code(s): J18.1 - Lobar pneumonia, unspecified organism Is this a current diagnosis for this admission?: Yes Plan: Possible. Will continue Levaquin for now and follow-up of blood cultures done in the ED. Will follow-up repeat chest x-ray in a.m. after diuresis. (5) Essential hypertension Is this a current diagnosis for this admission?: Yes Plan: Will resume her home blood pressure medications and adjust doses as needed. (6) Chest pain at rest Is this a current diagnosis for this admission?: Yes Plan: unclear etiology. Will continue to cycle cardiac enzymes and follow-up echocardiogram in a.m. Will resume her home medications. (7) History of lupus Is this a current diagnosis for this admission?: No Plan: with chronic kidney disease per patient. Will monitor her kidney function while on Lasix. - Time Time Spent: Greater than 70 Minutes Anticipated discharge: Home - Inpatient Certification Based on my medical assessment, after consideration of the patient's comorbidities, presenting symptoms, or acuity I expect that the services needed warrant INPATIENT care.: Yes I certify that my determination is in accordance with my understanding of Medicare's requirements for reasonable and necessary INPATIENT services [42 CFR 412.3e].: Yes
[2017-11-07 03:34] LABS: HEMATOCRIT 25.1 % (36.0-47.0); HEMOGLOBIN 8.3 g/dL (12.0-15.5); MEAN CORPUSCULAR HEMOGLOBIN 30.3 pg (27.0-33.4); MEAN CORPUSCULAR HGB CONC 33.1 g/dL (32.0-36.0); MEAN CORPUSCULAR VOLUME 92 fl (80-97); PLATELET COUNT 132 10^3/uL (150-450); RED BLOOD COUNT 2.74 10^6/uL (3.72-5.28); RED CELL DISTRIBUTION WIDTH 13.2 % (11.5-14.0); WHITE BLOOD COUNT 5.8 10^3/uL (4.0-10.5)
[2017-11-07] MEDS: IPRATROPIUM/ALBUTEROL 0.5-2.5 MG/3 ML AMPUL NEB SCH ×3 (03:43→14:00)
[2017-11-07 04:29] LABS: ANION GAP 10 (5-19); BLOOD UREA NITROGEN 21 mg/dL (7-20); CALCIUM 8.9 mg/dL (8.4-10.2); CARBON DIOXIDE 31 mmol/L (22-30); CHLORIDE 99 mmol/L (98-107); GLUCOSE 108 mg/dL (75-110); POTASSIUM 4.1 mmol/L (3.6-5.0); SODIUM 139.6 mmol/L (137-145)
[2017-11-07] MEDS: HEPARIN SOD (PORCINE) 5,000 UNIT/ML 1 ML SYRINGE SUBCUT SCH ×2 (05:56→14:06)
[2017-11-07] MEDS ORDERED: LANSOPRAZOLE 30 MG TAB.RAP.DR PO SCH (06:00)
[2017-11-07] MEDS ORDERED: DOCUSATE SODIUM 100 MG CAPSULE PO PRN (07:13)
[2017-11-07 08:17] LABS: ABSOLUTE RETICS # 0.024 10^6/uL (0.028-0.122); RETICULOCYTE COUNT (AUTO) 0.88 % (0.66-2.85)
[2017-11-07 08:24] LABS: VENOUS BLOOD BASE EXCESS 6.7 mmol/L; VENOUS BLOOD HCO3 34.1 mmol/L (20-32); VENOUS BLOOD PCO2 64.8 mmHg (35-63); VENOUS BLOOD PH 7.34 (7.30-7.42)
[2017-11-07 08:26] LABS: IRON(TIBC) 13.6 ug/dL (37-170)
[2017-11-07 09:49] LABS: FOLATE > 20.00 ng/mL (>2.76)
[2017-11-07] MEDS ORDERED: CHOLECALCIFEROL (D3) 1,000 UNIT TABLET PO SCH (10:00)
[2017-11-07] MEDS ORDERED: ASPIRIN 81 MG TABLET, CHEWABLE PO SCH (10:00)
[2017-11-07] MEDS ORDERED: METOPROLOL SUCCINATE 50 MG TAB.SR.24H PO SCH (10:00)
[2017-11-07] MEDS ORDERED: FUROSEMIDE INJ/PF 20 MG/2 ML SDV IV SCH (10:00)
[2017-11-07] MEDS ORDERED: (PENDING PHARMACY ID) (Pravastatin Sodium [Pravastatin Sodium] 10 MG) PO SCH (10:00)
[2017-11-07] MEDS ORDERED: LEVOFLOXACIN 500 MG TABLET PO SCH (10:00)
[2017-11-07] MEDS ORDERED: BUDESONIDE/FORMOTEROL 160-4.5 MCG 60 PUFF/6 GM MDI IH SCH ×2 (10:00)
--- NOTE | 2017-11-07 10:18 | RADIOLOGY REPORT (SQ) ---
EXAM DESCRIPTION: CHEST PA/LAT COMPLETED DATE/TIME: 11/07/2017 10:05 am REASON FOR STUDY: SOB (followup) COMPARISON: 05/15/2017. NUMBER OF VIEWS: Two view. TECHNIQUE: Frontal and lateral radiographic views of the chest acquired. LIMITATIONS: None. FINDINGS: LUNGS AND PLEURA: No opacities, masses or pneumothorax. No pleural effusion. Attenuated bl ood vessels and flattened mannie-diaphragms. MEDIASTINUM AND HILAR STRUCTURES: No masses. No contour abnormalities. HEART AND VASCULAR STRUCTURES: Heart normal in size and contour. No evidence for failure. BONES: No acute findings. HARDWARE: Surgical clips. OTHER: No other significant finding. IMPRESSION: COPD. NO ACUTE RADIOGRAPHIC FINDING IN THE CHEST. TECHNICAL DOCUMENTATION: JOB ID: [id number] [employer]- All Rights Reserved Reading location - IP/workstation name: [email or web address]
--- NOTE | 2017-11-07 10:48 | EKG REPORT ---
SEVERITY:- ABNORMAL ECG - SINUS RHYTHM LVH WITH SECONDARY REPOLARIZATION ABNORMALITY ST DEPRESSION, CONSIDER ISCHEMIA, ANT-LAT LDS : Confirmed by: Angel Bauer 07-Nov-2017 10:47:42
--- NOTE | 2017-11-07 10:51 | PDOC PROGRESS REPORT ---
Subjective Progress Note for:: 11/07/17 Subjective:: Patient denies shortness of breath or chest pain. Admits feeling much better able to lie flat without distress. No new nursing issues, no overnight events no telemetry alarms. Blood pressure improved. Reason For Visit: ACUTE ON CHRONIC RESPIRATORY FAILURE multifactorial secondary to congestive heart failure, oxygen dependent COPD, and anemia. Physical Exam Vital Signs: Temp Pulse Resp BP Pulse Ox 97.9 F 81 16 151/93 H 100 11/07/17 07:55 11/07/17 07:55 11/07/17 07:55 11/07/17 07:55 11/07/17 07:55 Intake & Output 11/05/17 11/06/17 11/07/17 11:59 11:59 12:59 Intake Total 0 Output Total 1000 Balance -1000 Weight 40.3 kg General appearance: PRESENT: no acute distress, cooperative, disheveled, thin, other - Chronically ill appearing cachexia with temporal wasting Head exam: PRESENT: atraumatic, normocephalic Eye exam: PRESENT: conjunctiva pink, EOMI, PERRLA. ABSENT: scleral icterus Ear exam: PRESENT: normal external ear exam Mouth exam: PRESENT: moist, tongue midline Neck exam: ABSENT: carotid bruit, JVD, lymphadenopathy, thyromegaly Respiratory exam: PRESENT: crackles, prolonged expiratory phas. ABSENT: rales, rhonchi, wheezes Cardiovascular exam: PRESENT: RRR. ABSENT: diastolic murmur, rubs, systolic murmur Pulses: PRESENT: normal dorsalis pedis pul Vascular exam: PRESENT: normal capillary refill GI/Abdominal exam: PRESENT: normal bowel sounds, soft. ABSENT: distended, guarding, mass, organolmegaly, rebound, tenderness Rectal exam: PRESENT: deferred Extremities exam: PRESENT: full ROM. ABSENT: calf tenderness, clubbing, pedal edema Neurological exam: PRESENT: alert, awake, oriented to person, oriented to place , oriented to time, oriented to situation, CN II-XII grossly intact. ABSENT: motor sensory deficit Psychiatric exam: PRESENT: appropriate affect, normal mood. ABSENT: homicidal ideation, suicidal ideation Skin exam: PRESENT: dry, intact, warm. ABSENT: cyanosis, rash Results Laboratory Results: 11/07/17 03:10 11/07/17 03:10 11/07/17 11/07/1718 03:10 03:10 03:10 WBC 5.8 RBC 2.74 L Hgb 8.3 L Hct 25.1 L MCV 92 MCH 30.3 MCHC 33.1 RDW 13.2 Plt Count 132 L Retic Count (auto) 0.88 Absolute Retic 0.024 L VBG pH VBG pCO2 VBG HCO3 VBG Base Excess Sodium 139.6 Potassium 4.1 Chloride 99 Carbon Dioxide 31 H Anion Gap 10 BUN 21 H Creatinine 1.02 Est GFR ( Amer) > 60 Est GFR (Non-Af Amer) 55 L Glucose 108 Calcium 8.9 Magnesium 1.5 L Iron TIBC % Saturation Ferritin Vitamin B12 Folate 11/07/17 11/07/17 03:10 08:08 WBC RBC Hgb Hct MCV MCH MCHC RDW Plt Count Retic Count (auto) Absolute Retic VBG pH 7.34 VBG pCO2 64.8 H VBG HCO3 34.1 H VBG Base Excess 6.7 Sodium Potassium Chloride Carbon Dioxide Anion Gap BUN Creatinine Est GFR ( Amer) Est GFR (Non-Af Amer) Glucose Calcium Magnesium Iron 13.6 L TIBC 288 % Saturation 5 Ferritin 238.00 Vitamin B12 > 1000.0 H Folate > 20.00 11/07/17 11/07/17 03:10 08:08 Troponin I 0.055 0.039 Impressions: Chest X-Ray 11/07/17 00:00 IMPRESSION: COPD. NO ACUTE RADIOGRAPHIC FINDING IN THE CHEST. Assessment & Plan - Diagnosis (1) Acute exacerbation of congestive heart failure Qualifiers: Heart failure type: unspecified Qualified Code(s): I50.9 - Heart failure, unspecified Is this a current diagnosis for this admission?: Yes Plan: Optimize blood pressure, IV hydralazine, diuresis and education. Follow-up 2D echo and chest x-ray. (2) Acute and chronic respiratory failure with hypoxia Is this a current diagnosis for this admission?: Yes Plan: Supplemental oxygen, incentive spirometry, flutter valve, optimize #1, evaluate anemia. (3) Anemia Qualifiers: Anemia type: unspecified type Qualified Code(s): D64.9 - Anemia, unspecified Is this a current diagnosis for this admission?: Yes Plan: Likely multifactorial secondary to chronic renal failure, however microcytic will evaluate iron level. As needed Venofer and p.o. iron, transfuse packed red blood cells as needed hemoglobin less than 7. - Time Time Spent with patient: 15-24 minutes
[2017-11-07] MEDS ORDERED: IRON SUCROSE COMPLEX INJ/PF 100 MG/5 ML SDV IV ONE (12:00)
[2017-11-07 12:38] VITALS: BP 143/79
[2017-11-07] MEDS ORDERED: FOLIC ACID/VITAMIN B COMP W-C CAPSULE PO SCH (17:00)
[2017-11-07] MEDS ORDERED: ISOSORBIDE MONONITRATE 30 MG TAB.ER.24H PO SCH (18:00)
[2017-11-07] MEDS ORDERED: ATORVASTATIN CALCIUM 10 MG TABLET PO SCH (22:00)
[2017-11-08] MEDS ORDERED: FUROSEMIDE 20 MG TABLET PO SCH (10:00)
[2017-11-08] MEDS ORDERED: LOSARTAN POTASSIUM 25 MG TABLET PO SCH (10:00)
--- NOTE | 2017-11-12 17:39 | PDOC DISCHARGE SUMMARY ---
General - Admit/Disc Date/PCP Admission Date/Primary Care Provider: 11/06/17 22:16 BLANCA GRIDER, Discharge Date: 11/07/17 - Discharge Diagnosis (1) Acute exacerbation of congestive heart failure Is this a current diagnosis for this admission?: Yes Summary: Patient admitted with decompensated high-output systolic heart failure. Multifactorial secondary to uncontrolled hypertension and profound anemia. Significant improvement with increase losartan dose and Venofer as her iron level was only 13. On discharge day patient requests discharge as she is feeling significantly better and able to lie flat. She receives congestive heart failure education, prescriptions for increase losartan, metoprolol dose, and iron. She is to follow-up with primary care in 7-10 days. (2) Acute and chronic respiratory failure with hypoxia Is this a current diagnosis for this admission?: Yes Summary: Supplemental oxygen in addition to above. (3) Anemia Is this a current diagnosis for this admission?: Yes Summary: Patient receives Venofer with outpatient workup with gastroenterology and nephrology given iron deficiency and chronic kidney disease.. - Additional Information Resuscitation Status: Full Code Discharge Diet: As Tolerated Discharge Activity: Activity As Tolerated, Balance Activity w/Rest Prescriptions: Furosemide [Lasix 20 mg Tablet] 20 mg PO DAILY #30 tablet Losartan Potassium [Cozaar 25 mg Tablet] 50 mg PO DAILY #30 tablet Metoprolol Succinate [Toprol Xl] 100 mg PO DAILY #30 tab.er.24h Home Medications: Albuterol Sulfate [Ventolin Hfa] 2 puff IH Q4HP PRN 02/21/17 Aspirin [Aspirin 81 mg Chewable Tablet] 81 mg PO DAILY 02/21/17 Budesonide/Formoterol Fumarate [Symbicort 160-4.5 Mcg Inhaler] 2 puff IH Q12 Cholecalciferol (Vitamin D3) [Vitamin D3] 1,000 units PO DAILY 02/21/17 Isosorbide Mononitrate [Imdur 30 mg Tablet.er] 30 mg PO QPM 02/21/17 Omeprazole 40 mg PO DAILYP PRN 02/21/17 Ondansetron HCl [Zofran 4 mg Tablet] 4 mg PO Q4HP PRN 02/21/17 Pravastatin Sodium 10 mg PO DAILY 02/21/17 Tiotropium [place] [Spiriva Handihaler 5 Cap/Kit (18 Mcg/Cap)] 1 cap IH DAILY Folic Acid/Vitamin B Comp W-C [Nephrocaps Multiple Vitamin Capsule] 1 cap PO WSUPPER 02/22/17 Nitroglycerin [Nitrostat] 0.4 mg SL Q5MP PRN 02/22/17 Furosemide [Lasix 20 mg Tablet] 20 mg PO BID #30 tablet 04/28/17 Albuterol Sulfate [Albuterol Sulfate 2.5mg/3 mL] 1 vial IH Q4HP PRN 11/07/17 Furosemide [Lasix 20 mg Tablet] 20 mg PO DAILY #30 tablet 11/07/17 Losartan Potassium [Cozaar 25 mg Tablet] 50 mg PO DAILY #30 tablet 11/07/17 Metoprolol Succinate [Toprol Xl] 100 mg PO DAILY #30 tab.er.24h 11/07/17 History of Present Illness History of Present Illness: Patient admitted with decompensated high-output systolic heart failure. Multifactorial secondary to uncontrolled hypertension and profound anemia. Significant improvement with increase losartan dose and Venofer as her iron level was only 13. On discharge day patient requests discharge as she is feeling significantly better and able to lie flat. She receives congestive heart failure education, prescriptions for increase losartan, metoprolol dose, and iron. She is to follow-up with primary care in 7-10 days. Hospital Course Hospital Course: Patient admitted with decompensated high-output systolic heart failure. Multifactorial secondary to uncontrolled hypertension and profound anemia. Significant improvement with increase losartan dose and Venofer as her iron level was only 13. On discharge day patient requests discharge as she is feeling significantly better and able to lie flat. She receives congestive heart failure education, prescriptions for increase losartan, metoprolol dose, and iron. She is to follow-up with primary care in 7-10 days. Physical Exam Vital Signs: Temp Pulse Resp BP Pulse Ox 98.1 F 86 18 143/79 H 98 11/07/17 16:59 11/07/17 16:59 11/07/17 16:59 11/07/17 11:19 11/07/17 16:59 General appearance: PRESENT: no acute distress, well-developed, well-nourished Head exam: PRESENT: atraumatic, normocephalic Eye exam: PRESENT: conjunctiva pink, EOMI, PERRLA. ABSENT: scleral icterus Ear exam: PRESENT: normal external ear exam Mouth exam: PRESENT: moist, tongue midline Neck exam: ABSENT: carotid bruit, JVD, lymphadenopathy, thyromegaly Respiratory exam: PRESENT: clear to auscultation amaury. ABSENT: rales, rhonchi, wheezes Cardiovascular exam: PRESENT: RRR. ABSENT: diastolic murmur, rubs, systolic murmur Pulses: PRESENT: normal dorsalis pedis pul Vascular exam: PRESENT: normal capillary refill GI/Abdominal exam: PRESENT: normal bowel sounds, soft. ABSENT: distended, guarding, mass, organolmegaly, rebound, tenderness Rectal exam: PRESENT: deferred Extremities exam: PRESENT: full ROM. ABSENT: calf tenderness, clubbing, pedal edema Neurological exam: PRESENT: alert, awake, oriented to person, oriented to place , oriented to time, oriented to situation, CN II-XII grossly intact. ABSENT: motor sensory deficit Psychiatric exam: PRESENT: appropriate affect, normal mood. ABSENT: homicidal ideation, suicidal ideation Skin exam: PRESENT: dry, intact, warm. ABSENT: cyanosis, rash Results Laboratory Results: 11/07/17 03:10 11/07/17 03:10 11/07/17 11/07/17 11/07/17 03:10 08:08 15:00 Troponin I 0.055 0.039 0.033 Impressions: Chest X-Ray 11/07/17 00:00 IMPRESSION: COPD. NO ACUTE RADIOGRAPHIC FINDING IN THE CHEST. Qualifiers - * PATEINT BEING DISCHARGED WITH ANY OF THE FOLLOWING DIAGNOSIS?: No VTE patient discharged on overlapping Therapy?: No Reason(s) for not prescribing Overlap Therapy:: Not indicated Stroke Pt being discharged on Anti-thrombolytic therapy?: No Reason(s) for not prescribing Anti-thrombolytic therapy:: Not indicated Stroke Pt being discharged on Anti-coagulation therapy?: No Reason(s) for not prescribing Anti-coagulation therapy:: Tx not tolerated, Not indicated Stroke Pt being discharged on Statins?: Yes [place] Pt being discharged on Aspirin therapy?: Yes [place] Pt being discharged on Statins?: Yes [place] Pt discharged ACEI/ARBS?: Yes HF Pt being discharged on ACEI for LVEF less than 40%?: Yes HF Pt being discharged on ARBS for LVEF less than 40%?: Yes HF Pt with Afib discharged with Warfarin?: No Reason(s) for not prescribing Warfarin:: Not indicated HF Pt discharged on evidence-based Beta Mary:: Yes Plan Discharge Plan: Follow-up with primary care, gastroenterology, nephrology in 2-3 weeks. Time Spent: Less than 30 Minutes
== END 2017-11-07 17:02 | disposition home or self-care (01) | DRG 291 ==
LOC: ER 20:07 → EH 22:16 → 3S 23:40
PROVIDERS: ADMIT Internal Medicine Geriatric Medicine; ATTEND Internal Medicine Geriatric Medicine
PROC: 5A09357 Assistance with Respiratory Ventilation, Less than 24 Consecutive Hours, Continuous Positive Airway Pressure (ICD-10-PCS; principal; 2017-11-06)
PROC: 3E0234Z Introduction of Serum, Toxoid and Vaccine into Muscle, Percutaneous Approach (ICD-10-PCS; 2017-11-07)
DX: I13.0 Hypertensive heart and chronic kidney disease with heart failure and stage 1 through stage 4 chronic kidney disease, or unspecified chronic kidney disease (principal); J96.20 Acute and chronic respiratory failure, unspecified whether with hypoxia or hypercapnia; M32.9 Systemic lupus erythematosus, unspecified; I50.33 Acute on chronic diastolic (congestive) heart failure; D63.1 Anemia in chronic kidney disease; N18.9 Chronic kidney disease, unspecified; I25.10 Atherosclerotic heart disease of native coronary artery without angina pectoris; H54.40 Blindness, one eye, unspecified eye; H40.9 Unspecified glaucoma; E03.9 Hypothyroidism, unspecified; J44.9 Chronic obstructive pulmonary disease, unspecified; H54.62 Unqualified visual loss, left eye, normal vision right eye; K21.9 Gastro-esophageal reflux disease without esophagitis; Z99.81 Dependence on supplemental oxygen; I25.2 Old myocardial infarction; Z90.49 Acquired absence of other specified parts of digestive tract; Z85.3 Personal history of malignant neoplasm of breast; Z90.11 Acquired absence of right breast and nipple; Z98.51 Tubal ligation status; Z87.891 Personal history of nicotine dependence; Z82.49 Family history of ischemic heart disease and other diseases of the circulatory system; Z83.3 Family history of diabetes mellitus; Z91.013 Allergy to seafood; Z88.8 Allergy status to other drugs, medicaments and biological substances; Z88.2 Allergy status to sulfonamides; Z23 Encounter for immunization; Z95.5 Presence of coronary angioplasty implant and graft; Z92.21 Personal history of antineoplastic chemotherapy
CPT/HCPCS: 36415; 71045; 71046; 80048; 82607; 82728; 82746; 82803; 83540; 83550; 83735; 83880; 84484; 85025; 85027; 85045; 87040; 90686; 93005; 93010; 94640; 94660; 96365; 96375; 99291; J0696; J1644; J1756; J1940; J3490; J7512; J7620

== ENCOUNTER → 2017-11-08 | Outpatient (CLI) | payer MEDICARE ==
[2017-11-08 14:09] LABS: ALANINE AMINOTRANSFERASE 14 U/L (9-52); ALBUMIN 3.5 g/dL (3.5-5.0); ALKALINE PHOSPHATASE 52 U/L (38-126); ANION GAP 11 (5-19); ASPARTATE AMINO TRANSFERASE 23 U/L (14-36); BILIRUBIN,DIRECT 0.4 mg/dL (0.0-0.4); BILIRUBIN,TOTAL 0.4 mg/dL (0.2-1.3); BLOOD UREA NITROGEN 39 mg/dL (7-20); CALCIUM 9.3 mg/dL (8.4-10.2); CARBON DIOXIDE 34 mmol/L (22-30); CHLORIDE 96 mmol/L (98-107); GLUCOSE 83 mg/dL (75-110); IRON(TIBC) 171.3 ug/dL (37-170); SODIUM 140.6 mmol/L (137-145); TOTAL PROTEIN 7.1 g/dL (6.3-8.2)
[2017-11-08 14:12] LABS: ABSOLUTE LYMPHOCYTES (AUTO) 1.1 10^3/uL (0.5-4.7); ABSOLUTE MONOCYTES (AUTO) 0.4 10^3/uL (0.1-1.4); ABSOLUTE NEUT (AUTO) 2.8 10^3/uL (1.7-8.2); BASOPHILS % (AUTO) 0.5 % (0-2); EOSINOPHILS % (AUTO) 0.6 % (0-6); HEMATOCRIT 26.5 % (36.0-47.0); HEMOGLOBIN 8.7 g/dL (12.0-15.5); MEAN CORPUSCULAR HEMOGLOBIN 29.5 pg (27.0-33.4); MEAN CORPUSCULAR HGB CONC 32.8 g/dL (32.0-36.0); MEAN CORPUSCULAR VOLUME 90 fl (80-97); PLATELET COUNT 158 10^3/uL (150-450); RED BLOOD COUNT 2.95 10^6/uL (3.72-5.28); RED CELL DISTRIBUTION WIDTH 13.3 % (11.5-14.0); SEGMENTED NEUTROPHILS % (AUTO) 62.9 % (42-78); TOTAL CELLS COUNTED % (AUTO) 100 %; WHITE BLOOD COUNT 4.4 10^3/uL (4.0-10.5)
== END ==
LOC: OD 12:07
PROVIDERS: ATTEND Internal Medicine Nephrology
DX: I12.9 Hypertensive chronic kidney disease with stage 1 through stage 4 chronic kidney disease, or unspecified chronic kidney disease (principal); N18.3 Chronic kidney disease, stage 3 (moderate); D64.9 Anemia, unspecified
CPT/HCPCS: 36415; 80053; 82728; 83540; 83550; 85025

== ENCOUNTER → 2017-11-29 | Outpatient (CLI) | payer MEDICARE ==
[2017-11-29 15:08] LABS: HEMATOCRIT 26.3 % (36.0-47.0); HEMOGLOBIN 8.8 g/dL (12.0-15.5); MEAN CORPUSCULAR HEMOGLOBIN 30.3 pg (27.0-33.4); MEAN CORPUSCULAR HGB CONC 33.3 g/dL (32.0-36.0); MEAN CORPUSCULAR VOLUME 91 fl (80-97); PLATELET COUNT 105 10^3/uL (150-450); RED BLOOD COUNT 2.89 10^6/uL (3.72-5.28); RED CELL DISTRIBUTION WIDTH 12.9 % (11.5-14.0); WHITE BLOOD COUNT 3.2 10^3/uL (4.0-10.5)
[2017-11-29 15:34] LABS: ANION GAP 8 (5-19); BLOOD UREA NITROGEN 29 mg/dL (7-20); CALCIUM 9.3 mg/dL (8.4-10.2); CARBON DIOXIDE 39 mmol/L (22-30); CHLORIDE 97 mmol/L (98-107); GLUCOSE 115 mg/dL (75-110); POTASSIUM 4.1 mmol/L (3.6-5.0); SODIUM 143.8 mmol/L (137-145)
== END ==
LOC: OD 13:56
PROVIDERS: ATTEND Internal Medicine Nephrology
DX: I12.9 Hypertensive chronic kidney disease with stage 1 through stage 4 chronic kidney disease, or unspecified chronic kidney disease (principal); N18.3 Chronic kidney disease, stage 3 (moderate); D64.9 Anemia, unspecified
CPT/HCPCS: 36415; 80048; 85027

== ENCOUNTER → 2018-02-17 | Outpatient (CLI) | payer MEDICARE ==
[2018-02-17 15:50] LABS: HEMATOCRIT 33.1 % (36.0-47.0); HEMOGLOBIN 10.8 g/dL (12.0-15.5); MEAN CORPUSCULAR HEMOGLOBIN 29.2 pg (27.0-33.4); MEAN CORPUSCULAR HGB CONC 32.6 g/dL (32.0-36.0); MEAN CORPUSCULAR VOLUME 90 fl (80-97); PLATELET COUNT 119 10^3/uL (150-450); RED BLOOD COUNT 3.69 10^6/uL (3.72-5.28); RED CELL DISTRIBUTION WIDTH 13.5 % (11.5-14.0)
[2018-02-17 16:12] LABS: BLOOD UREA NITROGEN 39 mg/dL (7-20); CALCIUM 9.2 mg/dL (8.4-10.2); GLUCOSE 74 mg/dL (75-110)
[2018-02-17 16:13] LABS: ANION GAP 15 (5-19); CARBON DIOXIDE 33 mmol/L (22-30); CHLORIDE 97 mmol/L (98-107); POTASSIUM 4.5 mmol/L (3.6-5.0); SODIUM 144.8 mmol/L (137-145)
== END ==
LOC: OD 14:38
PROVIDERS: ATTEND Internal Medicine Nephrology
DX: I12.9 Hypertensive chronic kidney disease with stage 1 through stage 4 chronic kidney disease, or unspecified chronic kidney disease (principal); N18.3 Chronic kidney disease, stage 3 (moderate); D63.1 Anemia in chronic kidney disease; M32.10 Systemic lupus erythematosus, organ or system involvement unspecified
CPT/HCPCS: 36415; 80048; 85027